=== PATIENT | female | born 1985 | race African-American/Black ===

== ENCOUNTER 2016-12-10 19:41 | Emergency (ER) | payer OTHER ==
[2016-12-10] MEDS ORDERED: LEVETIRACETAM 500 MG TABLET PO ONE (20:18)
--- NOTE | 2016-12-10 20:21 | ER Document Report ---
ED General - General Stated Complaint: POSSIBLE SEIZURE Notes: Patient is a 31-year-old female who presents after having a witnessed seizure at home. She apparently had generalized tonic-clonic event. She has a long- standing history of seizures but is apparently off all her seizure medication since July due to recently moving from [place]. She has not seen her primary care doctor regarding today's concerns. At time of my assessment she denies any concerns. She really did not have a postictal state per EMS. She states that this is "a very mild" seizure event for her. At time of my assessment she denies any focal complaints. She has not noted that anything improves or worsens her symptoms. TRAVEL OUTSIDE OF THE [place] IN LAST 30 DAYS: No - Related Data Allergies/Adverse Reactions: banana [Banana] Allergy (Intermediate, Verified 07/06/14 10:22) swelling morphine [Morphine] Allergy (Intermediate, Verified 07/06/14 10:22) Hives Past Medical History - General Information source: Patient - Social History Smoking Status: Never Smoker Frequency of alcohol use: None Drug Abuse: None Lives with: Family Family History: Reviewed & Not Pertinent - Past Medical History Cardiac Medical History: Denies: Hx Hypertension Pulmonary Medical History: Reports: Hx Asthma Neurological Medical History: Reports: Hx Seizures - NEVER EVALUATED BY NEUROLOGY Endocrine Medical History: Denies: Hx Diabetes Mellitus Type 1, Hx Diabetes Mellitus Type 2 Renal/ Medical History: Reports: Hx Ectopic . Denies: Hx Kidney Stones, Hx Ovarian Cysts, Hx Pelvic Inflammatory Disease, Hx Renal Insufficiency GI Medical History: Denies: Hx Gastritis, Hx Gastroesophageal Reflux Disease Musculoskeltal Medical History: Denies Hx Musculoskeletal Trauma Skin Medical History: Denies Hx Cellulitis, Denies Hx Eczema, Denies Hx MRSA, Denies Hx Psoriasis Past Surgical History: Reports: Hx Section - x1, Hx Gynecologic Surgery - left fallopion - Immunizations Hx Diphtheria, Pertussis, Tetanus Vaccination: Yes - 2010 Review of Systems - Review of Systems Notes: Constitutional: Negative for fever. HENT: Negative for sore throat. Eyes: Negative for visual changes. Cardiovascular: Negative for chest pain. Respiratory: Negative for shortness of breath. Gastrointestinal: Negative for abdominal pain, vomiting or diarrhea. Genitourinary: Negative for dysuria. Musculoskeletal: Negative for back pain. Skin: Negative for rash. Neurological: Negative for headaches, weakness or numbness. 10 point ROS negative except as marked above and in HPI. Physical Exam - Vital signs Vitals: Temp Pulse Resp BP Pulse Ox 98.2 F 66 16 115/61 100 12/10/16 20:29 12/10/16 20:29 12/10/16 20:29 12/10/16 20:29 12/10/16 20:29 Interpretation: Normal Notes: PHYSICAL EXAMINATION: GENERAL: Well-appearing, well-nourished and in no acute distress. HEAD: Atraumatic, normocephalic. EYES: Pupils equal round and reactive to light, extraocular movements intact, sclera anicteric, conjunctiva are normal. ENT: nares patent, oropharynx clear without exudates. Moist mucous membranes. NECK: Normal range of motion, supple without lymphadenopathy LUNGS: Breath sounds clear to auscultation bilaterally and equal. No wheezes rales or rhonchi. HEART: Regular rate and rhythm without murmurs ABDOMEN: Soft, nontender, normoactive bowel sounds. No guarding, no rebound. No masses appreciated. EXTREMITIES: Normal range of motion, no pitting or edema. No cyanosis. NEUROLOGICAL: Face symmetric. Tongue protrudes midline. Extraocular motions intact. Pupils are 2 mm and equally reactive. Normal speech, normal gait. 5 out of 5 strength in both the distal and proximal upper and lower extremities bilaterally. Sensation is grossly intact throughout. Finger to nose testing normal. Pronator drift normal. PSYCH: Normal mood, normal affect. SKIN: Warm, Dry, normal turgor, no rashes or lesions noted. Course - Re-evaluation Re-evalutation: 12/10/16 20:19 Presentation of well-appearing patient after having a seizure. Patient has a known history of seizures. Patient is ran out of her medications 3 months ago and this is likely the etiology of today's seizure. She will be restarted on her Keppra 1000 mg twice a day which she was taking prior to running out of her medications when she moved from [place]. The patient has returned to baseline without intervention. No focal neurologic deficits. No infectious symptoms, vital sign abnormalities, or evidence of trauma. No indication for laboratories or imaging based on reassuring evaluation and known history of seizures. The patient will be discharged home with recommendations for close follow-up with primary care as well as their neurologist. Return precautions have been reviewed and patient has verbalized understanding. - Vital Signs Vital signs: Temp Pulse Resp BP Pulse Ox 98.2 F 66 16 115/61 100 12/10/16 20:29 12/10/16 20:29 12/10/16 20:29 12/10/16 20:29 12/10/16 20:29 Discharge - Discharge Clinical Impression: Seizure Condition: Good Disposition: HOME, SELF-CARE Additional Instructions: Today you had a seizure. It is very important that you do not engage in any activities that could result in severe injury should you have a seizure. Specifically, do not drive a vehicle, go into a body of water, take a bath, climb ladders, or operate any heavy machinery until you have been cleared by your neurologist. Please return to the ED immediately if you have multiple seizures close together, develop a severe headache, weakness, numbness, difficulty speaking, have a seizure in which you do not return to normal within 1 hour of the seizure, or have any other symptoms that are concerning to you. Prescriptions: Levetiracetam [Keppra 500 mg Tablet] 1,000 mg PO Q12 #120 tablet
[2016-12-10 20:39] VITALS: BP 115/61
== END 2016-12-10 20:40 | disposition home or self-care (01) ==
LOC: ER 19:41
DX: R56.9 Unspecified convulsions (principal); Z91.14 Patient's other noncompliance with medication regimen; J45.909 Unspecified asthma, uncomplicated; Z88.5 Allergy status to narcotic agent; Z91.018 Allergy to other foods
CPT/HCPCS: 99284

== ENCOUNTER 2017-01-30 23:23 | Emergency (ER) | payer OTHER ==
[2017-01-31 00:56] LABS: ABSOLUTE BASOPHILS # (AUTO) 0.1 10^3/uL (0.0-0.2); ABSOLUTE EOSINOPHILS # (AUTO) 0.1 10^3/uL (0.0-0.6); ABSOLUTE LYMPHOCYTES (AUTO) 2.7 10^3/uL (0.5-4.7); ABSOLUTE MONOCYTES (AUTO) 0.8 10^3/uL (0.1-1.4); ABSOLUTE NEUT (AUTO) 5.4 10^3/uL (1.7-8.2); BASOPHILS % (AUTO) 0.7 % (0-2); EOSINOPHILS % (AUTO) 1.1 % (0-6); HEMATOCRIT 42.8 % (36.0-47.0); HEMOGLOBIN 14.2 g/dL (12.0-15.5); HGB HCT DIFFERENCE -0.2; LYMPHOCYTES % (AUTO) 29.8 % (13-45); MEAN CORPUSCULAR HEMOGLOBIN 29.9 pg (27.0-33.4); MEAN CORPUSCULAR HGB CONC 33.1 g/dL (32.0-36.0); MEAN CORPUSCULAR VOLUME 90 fl (80-97); MONOCYTES % (AUTO) 9.2 % (3-13); RED BLOOD COUNT 4.74 10^6/uL (3.72-5.28); RED CELL DISTRIBUTION WIDTH 14.2 % (11.5-14.0); SEGMENTED NEUTROPHILS % (AUTO) 59.2 % (42-78); WHITE BLOOD COUNT 9.1 10^3/uL (4.0-10.5)
== END 2017-01-31 00:45 | disposition left against medical advice (07) ==
LOC: ER 23:23
DX: Z53.21 Procedure and treatment not carried out due to patient leaving prior to being seen by health care provider (principal)
CPT/HCPCS: 36415; 80156; 85025

== ENCOUNTER 2017-02-18 16:41 | Emergency (ER) | payer SELFPAY ==
[2017-02-18] MEDS ORDERED: IBUPROFEN 600 MG TABLET PO ONE (17:43)
--- NOTE | 2017-02-18 17:46 | ER Document Report ---
ED Cardiac - General Chief Complaint: Chest Pain Stated Complaint: CHEST PAIN Time Seen by Provider: 02/18/17 17:43 Notes: Patient is a 32-year-old female, past medical history epilepsy, presents with 1 day of dry cough, nasal congestion, sore throat, mid back pain and now chest pain when she coughs. She has not taking anything to help with any of her symptoms. She denies shortness of breath, hemoptysis, OCP use, leg swelling, recent surgery, recent travel, nausea, vomiting or fevers. TRAVEL OUTSIDE OF THE [place] IN LAST 30 DAYS: No - Related Data Allergies/Adverse Reactions: banana [Banana] Allergy (Intermediate, Verified 02/18/17 17:07) swelling morphine [Morphine] Allergy (Intermediate, Verified 02/18/17 17:07) Hives Past Medical History - General Information source: Patient - Social History Smoking Status: Never Smoker Family History: Reviewed & Not Pertinent Patient has suicidal ideation: No Patient has homicidal ideation: No - Past Medical History Cardiac Medical History: Denies: Hx Hypertension Pulmonary Medical History: Reports: Hx Asthma Neurological Medical History: Reports: Hx Seizures - NEVER EVALUATED BY NEUROLOGY Endocrine Medical History: Denies: Hx Diabetes Mellitus Type 1, Hx Diabetes Mellitus Type 2 Renal/ Medical History: Reports: Hx Ectopic . Denies: Hx Kidney Stones, Hx Ovarian Cysts, Hx Peritoneal Dialysis, Hx Pelvic Inflammatory Disease , Hx Renal Insufficiency GI Medical History: Denies: Hx Gastritis, Hx Gastroesophageal Reflux Disease Musculoskeltal Medical History: Denies Hx Musculoskeletal Trauma Skin Medical History: Denies Hx Cellulitis, Denies Hx Eczema, Denies Hx MRSA, Denies Hx Psoriasis Past Surgical History: Reports: Hx Section - x1, Hx Gynecologic Surgery - left fallopion - Immunizations Hx Diphtheria, Pertussis, Tetanus Vaccination: Yes - 2010 Review of Systems - Review of Systems Notes: REVIEW OF SYSTEMS: CONSTITUTIONAL: -fevers, -chills EENT: -eye pain, -difficulty swallowing, +nasal congestion CARDIOVASCULAR: +chest pain, -syncope. RESPIRATORY: +cough, -SOB GASTROINTESTINAL: -abdominal pain, -nausea, -vomiting, -diarrhea GENITOURINARY: -dysuria, -hematuria MUSCULOSKELETAL: +back pain, -neck pain SKIN: -rash or skin lesions. HEMATOLOGIC: -easy bruising or bleeding. LYMPHATIC: -swollen, enlarged glands. NEUROLOGICAL: -altered mental status or loss of consciousness, -headache, - neurologic symptoms PSYCHIATRIC: -anxiety, -depression. ALL OTHER SYSTEMS REVIEWED AND NEGATIVE. Physical Exam - Vital signs Vitals: Temp Pulse Resp BP Pulse Ox 98 F 81 18 111/69 100 02/18/17 17:07 02/18/17 17:07 02/18/17 17:07 02/18/17 17:07 02/18/17 17:07 - Notes Notes: PHYSICAL EXAMINATION: GENERAL: Well-appearing, well-nourished and in no acute distress. HEAD: Atraumatic, normocephalic. EYES: Pupils equal round and reactive to light, extraocular movements intact, sclera anicteric, conjunctiva are normal. ENT: nasal congestion, nares patent, oropharynx clear without exudates. Moist mucous membranes. NECK: Normal range of motion, supple without lymphadenopathy LUNGS: Breath sounds clear to auscultation bilaterally and equal. No wheezes rales or rhonchi. HEART: Regular rate and rhythm without murmurs ABDOMEN: Soft, nontender, normoactive bowel sounds. No guarding, no rebound. No masses appreciated. EXTREMITIES: Tenderness over left thoracic paraspinal muscles, normal range of motion, no pitting or edema. No cyanosis. NEUROLOGICAL: Cranial nerves grossly intact. Normal speech, normal gait. Normal sensory and motor exams. PSYCH: Normal mood, normal affect. SKIN: Warm, Dry, normal turgor, no rashes or lesions noted. Course - Re-evaluation Re-evalutation: Patient appears well. EKG and chest x-ray did not show any concerning abnormalities. Symptoms are most likely related to URI with coughing and reproducible chest wall pain. PERC negative and HEART score 0. Instructed patient about symptomatic treatment and following up with her primary care physician. - Vital Signs Vital signs: Temp Pulse Resp BP Pulse Ox 98 F 81 18 111/69 100 02/18/17 17:07 02/18/17 17:07 02/18/17 17:07 02/18/17 17:07 02/18/17 17:07 - Diagnostic Test Radiology reviewed: Image reviewed, Reports reviewed Radiology results interpreted by me: CXR: NAD - EKG Interpretation by Me EKG shows normal: Sinus rhythm, [place], Intervals, QRS Complexes, ST-T Waves Rate: Normal Discharge - Discharge Clinical Impression: Chest pain Qualifiers: Chest pain type: unspecified Qualified Code(s): R07.9 - Chest pain, unspecified URI (upper respiratory infection) Qualifiers: URI type: unspecified URI Qualified Code(s): J06.9 - Acute upper respiratory infection, unspecified Condition: Stable Disposition: HOME, SELF-CARE Additional Instructions: CHEST PAIN OF UNCLEAR CAUSE: The exact cause of your chest pain isn't clear. Fortunately, there is no evidence of a dangerous medical condition. Further testing may be required to find the source of the pain. Most often, we find that this pain is coming from the chest wall -- the muscles or rib joints in the chest. But chest pain can come from the lung and lung lining, the esophagus, the heart valves or heart lining, and even the stomach or gallbladder. Rest. Eat lightly until the pain is gone. We may prescribe medicine for pain and inflammation. You should call the physician immediately if the pain radiates to the shoulder, jaw or arms; if you start to run a fever or develop a cough; or if you develop shortness of breath, or other new or alarming symptoms. NORMAL EXAM AND WORKUP: At this time, your examination and workup show no significant abnormality. No significant abnormal physical findings were noted. All laboratory, EKG, and imaging (x-ray, CT scans, ultrasound) studies that were ordered show no significant abnormality. Although your examination and all studies that were ordered showed no significant abnormal finding, there are no examinations and no studies that are 100% accurate. There is always the possibility that some abnormality could exist and not be detected with physical examination or within the limits and capabilities of laboratory and other studies. You should return or follow up as you were instructed on your visit today for further evaluation if your symptoms do not resolve. CHEST WALL PAIN: Your chest pain may be coming from the chest wall. This is often caused by straining the muscles or joints in the chest during physical activity, direct trauma, coughing, or vigorous vomiting. Persons with arthritis are especially prone to this type of pain, due to inflammation of the cartilage joints near the breast bone. Occasionally, no cause can be found. Rest from strenuous physical activity. This kind of chest pain is usually made worse by movement of the chest. Depending on the symptoms, we may prescribe medicine for pain, muscle relaxation, and antiinflammatory effects. If the pain is new, and seems to be due to muscle strain, cold packs can help. Otherwise, apply gentle warmth to the painful area for 15 minutes every hour or two. You should call contact the doctor immediately if things change. Further evaluation is needed if you develop a fever or cough, if the nature of the pain changes, or if you become short of breath. FOLLOW-UP CARE: If you have been referred to a physician for follow-up care, call the physician s office for an appointment as you were instructed or within the next two days. If you experience worsening or a significant change in your symptoms, notify the physician immediately or return to the Emergency Department at any time for re-evaluation. UPPER RESPIRATORY ILLNESS: You have a viral infection of the respiratory passages -- a "cold." This common infection causes nasal congestion, drainage, and often sore throat and cough. It is highly contagious. The disease usually lasts about 10 to 14 days. There is no "cure" for the viral infection -- it must run its course. If there is a complication, such as bacterial infection in the nose, sinuses, middle ear, or bronchial tubes, antibiotics may be required. The antibiotics won't affect the virus. Drink plenty of fluids. A humidifier may help. An expectorant medication or decongestant may make you more comfortable. Use acetaminophen or ibuprofen for fever or aches. See the doctor if fever persists over two days, if there is any significant worsening of your symptoms, or if you simply fail to improve as expected. DECONGESTANT MEDICATION: A decongestant medicine has been prescribed. Often this medicine is combined in the same tablet with an antihistamine or expectorant. This type of medicine is helpful in treating a bad cold or sinus condition, as well as in treatment of the nasal congestion of hay fever. It is not of much benefit for lung infections. Decongestant medicines are related to stimulants. They can cause an increase in blood pressure and heart rate. Persons with heart disease and high blood pressure should not take decongestants without discussing this with the physician. If you develop palpitations, chest pain, headache, or tremors, stop the medicine and consult your physician. COUGH-SUPPRESSANT & EXPECTORANT MEDICATION: You are to use a cough medication as needed for relief of symptoms. This medicine is a combination of an expectorant (to make the mucous thinner and more easily "coughed up") and a cough suppressant (to reduce the frequency of coughing). The cough-suppressant medicine is related to narcotics. You may experience mild nausea and sleepiness. Some patients who are very sensitive to narcotics may have stomach pain from this medicine. Taking the medicine with food reduces these side effects. Do not drive or work with machinery until you know how this medicine affects you. The expectorant should have no side effects. Iodine-containing expectorants (such as organidin) should not be taken by persons with active thyroid disease unless approved by your doctor. Call the doctor if you develop shortness of breath, hives, rash, itching, lightheadedness, or severe nausea and vomiting. FOLLOW-UP CARE: If you have been referred to a physician for follow-up care, call the physician s office for an appointment as you were instructed or within the next two days. If you experience worsening or a significant change in your symptoms, notify the physician immediately or return to the Emergency Department at any time for re-evaluation.
--- NOTE | 2017-02-18 18:12 | RADIOLOGY REPORT (SQ) ---
EXAM DESCRIPTION: CHEST PA/LAT COMPLETED DATE/TIME: 02/18/2017 6:04 pm REASON FOR STUDY: chest pain, cough COMPARISON: 08/05/2011 EXAM PARAMETERS: NUMBER OF VIEWS: two views TECHNIQUE: Digital Frontal and Lateral radiographic views of the chest acquired. RADIATION DOSE: NA LIMITATIONS: none FINDINGS: LUNGS AND PLEURA: No opacities, masses or pneumothorax. No pleural effusion. MEDIASTINUM AND HILAR STRUCTURES: No masses or contour abnormalities. HEART AND VASCULAR STRUCTURES: Heart normal size. No evidence for failure. BONES: No acute findings. HARDWARE: None in the chest. OTHER: No other significant finding. IMPRESSION: NO SIGNIFICANT RADIOGRAPHIC FINDING IN THE CHEST. TECHNICAL DOCUMENTATION: JOB ID: [id number] [employer]- All Rights Reserved
[2017-02-18 18:36] VITALS: BP 119/58
--- NOTE | 2017-02-18 23:38 | EKG REPORT ---
SEVERITY:- NORMAL ECG - SINUS RHYTHM : Confirmed by: Jc Tineo 18-Feb-2017 23:38:03
== END 2017-02-18 18:38 | disposition home or self-care (01) ==
LOC: ER 16:41
DX: J06.9 Acute upper respiratory infection, unspecified (principal); R07.9 Chest pain, unspecified; Z88.6 Allergy status to analgesic agent
CPT/HCPCS: 71020; 93005; 93010; 99285

== ENCOUNTER 2017-03-06 20:31 | Emergency (ER) | payer SELFPAY ==
[2017-03-06] MEDS ORDERED: LEVETIRACETAM 500 MG TABLET PO ONE (20:56)
--- NOTE | 2017-03-06 20:56 | ER Document Report ---
ED Seizure - General Chief Complaint: Probable Seizure Stated Complaint: POSSIBLE SEIZURE Time Seen by Provider: 03/06/17 20:48 Notes: The patient is a 32-year-old female, past medical history seizures (on Keppra 1000 mg bid), presents after she had two witnessed seizures at work today. Both of them lasted about 1 minute and they resolved without any intervention. She does not think that she took her Keppra this morning. She is now having a mild right-sided headache, which she says is common after her seizures. She denies nausea, vomiting, blurry vision, numbness, tingling, ataxia, fevers, neck stiffness, head injury, dental injury or loss of bowel or bladder. - Related Data Allergies/Adverse Reactions: banana [Banana] Allergy (Intermediate, Verified 02/18/17 17:07) swelling morphine [Morphine] Allergy (Intermediate, Verified 02/18/17 17:07) Hives Past Medical History - General Information source: Patient, Emergency Med Personnel - Social History Smoking Status: Unknown if Ever Smoked Family History: Reviewed & Not Pertinent - Past Medical History Cardiac Medical History: Denies: Hx Hypertension Pulmonary Medical History: Reports: Hx Asthma Neurological Medical History: Reports: Hx Seizures - NEVER EVALUATED BY NEUROLOGY Endocrine Medical History: Denies: Hx Diabetes Mellitus Type 1, Hx Diabetes Mellitus Type 2 Renal/ Medical History: Reports: Hx Ectopic . Denies: Hx Kidney Stones, Hx Ovarian Cysts, Hx Peritoneal Dialysis, Hx Pelvic Inflammatory Disease , Hx Renal Insufficiency GI Medical History: Denies: Hx Gastritis, Hx Gastroesophageal Reflux Disease Musculoskeltal Medical History: Denies Hx Musculoskeletal Trauma Skin Medical History: Denies Hx Cellulitis, Denies Hx Eczema, Denies Hx MRSA, Denies Hx Psoriasis Past Surgical History: Reports: Hx Section - x1, Hx Gynecologic Surgery - left fallopion - Immunizations Hx Diphtheria, Pertussis, Tetanus Vaccination: Yes - 2010 Review of Systems - Review of Systems Notes: REVIEW OF SYSTEMS: CONSTITUTIONAL: -fevers, -chills EENT: -eye pain, -difficulty swallowing, -nasal congestion CARDIOVASCULAR:-chest pain, -syncope. RESPIRATORY: -cough, -SOB GASTROINTESTINAL: -abdominal pain, - nausea, -vomiting, -diarrhea GENITOURINARY: -dysuria, -hematuria MUSCULOSKELETAL: -back pain, -neck pain SKIN: -rash or skin lesions. HEMATOLOGIC: -easy bruising or bleeding. LYMPHATIC: -swollen, enlarged glands. NEUROLOGICAL: -altered mental status or loss of consciousness, +headache, + seizure activity PSYCHIATRIC: -anxiety, -depression. ALL OTHER SYSTEMS REVIEWED AND NEGATIVE. Physical Exam - Vital signs Vitals: Temp Pulse Resp BP Pulse Ox 98.5 F 81 18 110/74 100 03/06/17 20:42 03/06/17 20:42 03/06/17 20:42 03/06/17 20:42 03/06/17 20:42 - Notes Notes: PHYSICAL EXAMINATION: GENERAL: Well-appearing, well-nourished and in no acute distress. HEAD: Atraumatic, normocephalic. EYES: Pupils equal round and reactive to light, extraocular movements intact, sclera anicteric, conjunctiva are normal. ENT: nares patent, oropharynx clear without exudates. Moist mucous membranes. NECK: Normal range of motion, supple without lymphadenopathy LUNGS: Breath sounds clear to auscultation bilaterally and equal. No wheezes rales or rhonchi. HEART: Regular rate and rhythm without murmurs ABDOMEN: Soft, nontender, normoactive bowel sounds. No guarding, no rebound. No masses appreciated. EXTREMITIES: Normal range of motion, no pitting or edema. No cyanosis. NEUROLOGICAL: Cranial nerves grossly intact. Normal speech, normal gait. Normal sensory and motor exams. PSYCH: Normal mood, normal affect. SKIN: Warm, Dry, normal turgor, no rashes or lesions noted. Course - Re-evaluation Re-evalutation: Patient with breakthrough seizure, which may be most likely caused from missing her Keppra doses. Her Accu-Chek is normal and she is not . Provided her with headache cocktail, evening Keppra dose and monitored in the ER. 03/06/17 22:06 Pt feels much better. Headache has completely resolved and she is requesting D/C. Her Accu-Chek is normal. She started her period while in the emergency room. Instructed patient to always take her Keppra as prescribed. He has always had this headache after her seizures. Do not suspect meningitis, ICH or SAH at this time. Instructed her to follow-up with her neurologist. Given return precautions and she understands. - Vital Signs Vital signs: Temp Pulse Resp BP Pulse Ox 98.5 F 81 14 111/67 96 03/06/17 20:42 03/06/17 20:42 03/06/17 21:00 03/06/17 21:00 03/06/17 21:00 Discharge - Discharge Clinical Impression: Recurrent seizures Headache Qualifiers: Headache type: unspecified Headache chronicity pattern: unspecified pattern Intractability: not intractable Qualified Code(s): R51 - Headache Condition: Stable Disposition: HOME, SELF-CARE Additional Instructions: Seizure, Known Epileptic You have had a seizure. Seizures may "break through" in an epileptic due to stress of infection or injury, a change in blood chemistry, or drug and alcohol use. Another common cause is failure to take medication as prescribed. Your doctor has evaluated your situation for the likely cause of this seizure. It is important that you follow his advice concerning any medication changes and follow-up care. Further testing of anti-seizure medication levels in your blood may be necessary. 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 This seizure must be reported to the patrol driver 's license bureau. Call the doctor or return if seizures recur, or if new or unusual symptoms arise -- such as severe headache, confusion, excessive sleepiness, local weakness or numbness, neck stiffness, or fever. HEADACHE: The physician does not feel that the headache you are experiencing has a serious underlying cause. Most headaches are due to emotional stress, with resultant muscle tension (tension headache). Occasionally, headaches are secondary to changes in the blood vessels of the scalp (vascular headache and migraine headache). Sometimes, a headache is the first symptom of another developing illness, such as a viral infection. You have no evidence of stroke, bleeding, meningitis, or other serious cause of your headache. The treatment of headaches varies with the severity and cause of the pain. Not all headaches need pain shots. In fact, there is evidence that using narcotics for headaches may make them worse in the long run. The physician will determine the therapy that's in your best interest. If you develop a fever, if the headache is different from any you've previously experienced, or if the headache progressively worsens, then call your physician at once or go to the emergency room. REGLAN (METOCLOPRAMIDE): Reglan has been prescribed. This medicine affects the stomach and intestines. It can be used to treat nausea and vomiting, to prevent reflux of stomach acid up into the esophagus, or to increase the contractions of the stomach and intestines. It is often prescribed for esophagitis, and for paralysis of the stomach in diabetics. Reglan can cause either mild restlessness or drowsiness. You should contact the doctor at once if you become extremely restless, anxious, or cannot sleep, or if you develop uncontrollable motions of the lips, tongue, or jaw. Do not take alcohol with this medicine. Do not drive or operate machinery until you have been taking this medicine long enough to know how it affects you. Call the doctor if you develop abdominal pains, lightheadedness, black stool, or blood in the stool or vomitus. USE OF DIPHENHYDRAMINE: Diphenhydramine (Benadryl) is an antihistamine and has been recommended to help treat your headache and to prevent side effects of other medications used to treat headaches. The medication can be repeated four times daily. Age Elixir (12.5 mg/tsp) 25 mg pill adult 1-2 tabs Antihistamines may cause drowsiness, especially with the first dose. Do not operate machinery or drive while under the effects of the medication. Do not combine the medication with alcohol, or with any other medication without talking to your doctor. FOLLOW-UP CARE: If you have been referred to a physician for follow-up care, call the physician s office for an appointment as you were instructed or within the next two days. If you experience worsening or a significant change in your symptoms, notify the physician immediately or return to the Emergency Department at any time for re-evaluation. Referrals: DANIEL KING MD [ACTIVE STAFF] - Follow up as needed
[2017-03-06] MEDS ORDERED: METOCLOPRAMIDE HCL INJ/PF 10 MG/2 ML SDV IV ONE (20:57)
[2017-03-06] MEDS ORDERED: DIPHENHYDRAMINE HCL 50 MG/ML VIAL IV ONE (20:57)
[2017-03-07 00:21] VITALS: BP 88/66
== END 2017-03-07 00:01 | disposition home or self-care (01) ==
LOC: ER 20:31
DX: G40.909 Epilepsy, unspecified, not intractable, without status epilepticus (principal); R56.9 Unspecified convulsions; R51 Headache; Z79.899 Other long term (current) drug therapy
CPT/HCPCS: 99284; 96374; 96375; 82962; J1200; J2765

== ENCOUNTER 2017-03-31 10:35 | Emergency (ER) | payer SELFPAY ==
[2017-03-31] MEDS ORDERED: DIPHENHYDRAMINE HCL 25 MG CAPSULE PO ONE (11:31)
[2017-03-31] MEDS ORDERED: ONDANSETRON 4 MG TAB.RAPDIS PO ONE (11:31)
[2017-03-31] MEDS ORDERED: ACETAMINOPHEN 325 MG TABLET PO ONE (11:31)
--- NOTE | 2017-03-31 12:04 | RADIOLOGY REPORT (SQ) ---
EXAM DESCRIPTION: CHEST PA/LAT COMPLETED DATE/TIME: 03/31/2017 11:39 am REASON FOR STUDY: chest wall pain COMPARISON: 02/18/2017 EXAM PARAMETERS: NUMBER OF VIEWS: two views TECHNIQUE: Digital Frontal and Lateral radiographic views of the chest acquired. RADIATION DOSE: NA LIMITATIONS: none FINDINGS: LUNGS AND PLEURA: No opacities, masses or pneumothorax. No pleural effusion. MEDIASTINUM AND HILAR STRUCTURES: No masses or contour abnormalities. HEART AND VASCULAR STRUCTURES: Heart normal size. No evidence for failure. BONES: No acute findings. HARDWARE: None in the chest. OTHER: No other significant finding. IMPRESSION: NO SIGNIFICANT RADIOGRAPHIC FINDING IN THE CHEST. TECHNICAL DOCUMENTATION: JOB ID: [id number] [email or web address]- All Rights Reserved
[2017-03-31 12:11] LABS: APPEARANCE,URINE SLIGHTLY-CLOUDY; BILIRUBIN,URINE NEGATIVE (NEGATIVE); GLUCOSE, URINE NEGATIVE (NEGATIVE); KETONES,URINE NEGATIVE (NEGATIVE); LEUKOCYTE ESTERASE,URINE NEGATIVE (NEGATIVE); NITRITE,URINE NEGATIVE (NEGATIVE); PROTEIN,URINE NEGATIVE (NEGATIVE); URINE SPECIFIC GRAVITY 1.023; UROBILINOGEN,URINE NEGATIVE mg/dL (<2.0)
[2017-03-31] MEDS ORDERED: LEVETIRACETAM 500 MG TABLET PO ONE (12:31)
[2017-03-31 12:32] LABS: URINE BARBITURATES SCREEN NEGATIVE; URINE METHADONE SCREEN NEGATIVE; URINE OPIATES LOW NEGATIVE; URINE PHENCYCLIDINE SCREEN NEGATIVE
--- NOTE | 2017-03-31 13:01 | ER Document Report ---
ED Seizure - General Chief Complaint: Probable Seizure Stated Complaint: POSSIBLE SEIZURE Time Seen by Provider: 03/31/17 10:40 - HPI Patient complains to provider of: History of seizures - noncompliant with keppra Number of episodes: 1 Time of onset: this am Duration: < 1 minute Quality of pain: Achy Severity: Mild Continued on arrival to ED: No Can details of seizure be obtained/verified: No Episode witnessed (by whom): Yes - brother in law who is not at the bedside Current seizure medications: Keppra Preceding symptoms/context: Missed dose of meds - has been noncompliant with keppra for 2 days, Other - also admits to sore throat so she ahsnt wanted to take her medications, admits to white vaginal discharge without pain/itching, no recent abx. Post-ictal symptoms: Headache Injuries: None - Related Data Allergies/Adverse Reactions: banana [Banana] Allergy (Intermediate, Verified 02/18/17 17:07) swelling morphine [Morphine] Allergy (Intermediate, Verified 02/18/17 17:07) Hives Past Medical History - Social History Smoking Status: Current Every Day Smoker Family History: Reviewed & Not Pertinent - Past Medical History Cardiac Medical History: Denies: Hx Hypertension Pulmonary Medical History: Reports: Hx Asthma Neurological Medical History: Reports: Hx Seizures - NEVER EVALUATED BY NEUROLOGY Endocrine Medical History: Denies: Hx Diabetes Mellitus Type 1, Hx Diabetes Mellitus Type 2 Renal/ Medical History: Reports: Hx Ectopic . Denies: Hx Kidney Stones, Hx Ovarian Cysts, Hx Peritoneal Dialysis, Hx Pelvic Inflammatory Disease , Hx Renal Insufficiency GI Medical History: Denies: Hx Gastritis, Hx Gastroesophageal Reflux Disease Musculoskeltal Medical History: Denies Hx Musculoskeletal Trauma Skin Medical History: Denies Hx Cellulitis, Denies Hx Eczema, Denies Hx MRSA, Denies Hx Psoriasis Past Surgical History: Reports: Hx Section - x1, Hx Gynecologic Surgery - left fallopion - Immunizations Hx Diphtheria, Pertussis, Tetanus Vaccination: Yes - 2010 Review of Systems - Review of Systems Constitutional: No symptoms reported EENT: See HPI Neurological/Psychological: See HPI -: Yes All other systems reviewed and negative Physical Exam - Vital signs Vitals: Resp BP Pulse Ox 12 111/71 96 03/31/17 10:43 03/31/17 10:43 03/31/17 10:43 - Notes Notes: PHYSICAL EXAM GENERAL: Alert, interacts well. HEAD: Normocephalic, atraumatic. EYES: Pupils equal, round, and reactive to light. Extraocular movements intact. ENT: Oral mucosa moist, tongue midline. NECK: Full range of motion. Supple. Trachea midline. LUNGS: Clear to auscultation bilaterally, no wheezes, rales, or rhonchi. No respiratory distress. HEART: Regular rate and rhythm. No murmurs, gallops, or rubs. ABDOMEN: Soft, nondistended, nontender. No guarding, rebound, or rigidity.. Bowel sounds present in all 4 quadrants. FEMALE : Normal external exam. No evidence of lesions, lacerations, bruising or vesicles. Speculum exam normal cervix closed. No evidence of vaginal discharge with odor. No evidence of lesions. No vaginal bleeding. Bimanual exam normal no cervical motion tenderness. No adnexal mass or adnexal tenderness. EXTREMITIES: Moves all 4 extremities spontaneously. No edema, radial and dorsalis pedis pulses 2/4 bilaterally. No cyanosis. NEUROLOGICAL: Alert and oriented x4. Normal speech. PSYCH: Normal affect, normal mood. SKIN: Warm, dry, normal turgor. No rashes or lesions noted. Course - Re-evaluation Re-evalutation: 03/31/17 19:00 Presentation of well-appearing patient after having a seizure. Patient has a known history of seizures. No obvious trigger for today's episode outside of being noncompliant with her meds. The patient has returned to baseline without intervention. No focal neurologic deficits. No infectious symptoms, vital sign abnormalities, or evidence of trauma. No indication for laboratories or imaging based on reassuring evaluation and known history of seizures. The patient will be discharged home with recommendations for close follow-up with primary care as well as their neurologist. Return precautions have been reviewed and patient has verbalized understanding. - Vital Signs Vital signs: Temp Pulse Resp BP Pulse Ox 98.6 F 68 16 92/65 L 94 03/31/17 13:45 03/31/17 13:45 03/31/17 13:38 03/31/17 13:38 03/31/17 13:38 - Laboratory Laboratory results interpreted by me: 03/31/17 11:21 Carbamazepine < 2.4 L Discharge - Discharge Clinical Impression: Seizure Condition: Good Disposition: HOME, SELF-CARE Instructions: Seizure, Known Epileptic ([facility]) Additional Instructions: Please be sure to take your medications as prescribed. Please follow-up with your primary care provider was established in the next month. ABDOMINAL PAIN: There are many causes of abdominal pain. Pain can mean a serious problem requiring surgery (such as appendicitis). It can also be an innocent problem that goes away on its own (such as a viral infection). Often, time must pass to determine the cause of pain. The physician does not feel that hospitalization is necessary, at present. Things may change within the next 24 hours. Call the doctor or come back for re- examination if any problems occur, such as: (1) Pain that becomes more severe, steady, or becomes concentrated in one specific area. Also, pain that is more severe with movement or coughing. (2) Vomiting that persists or becomes more frequent. (3) Blood in the vomitus, urine, or bowel movements. Blood in the stool may have a tarry or black appearance. (4) Shaking chills or fever greater than 100 degrees F. (5) The abdomen becomes more distended or swollen. (6) Bowel movements cease. (7) Failure to improve as expected. NORMAL EXAM AND WORKUP: At this time, your examination and workup show no significant abnormality. No significant abnormal physical findings are noted. All laboratory, EKG, and imaging (x-ray, CT scans, ultrasound) studies that were ordered show no significant abnormality. Although your examination and all studies that were ordered showed no significant abnormal finding, there are no examinations and no studies that are 100% accurate. There is always the possibility that some abnormality could exist and not be detected with physical examination or within the limits and capabilities of laboratory and other studies. You should return or follow up as you were instructed on your visit today for further evaluation if your symptoms do not resolve. FOLLOW-UP CARE: If you have been referred to a physician for follow-up care, call the physician s office for an appointment as you were instructed or within the next two days. If you experience worsening or a significant change in your symptoms, notify the physician immediately or return to the Emergency Department at any time for re-evaluation. Forms: Return to Work Referrals: [facility] [NO LOCAL MD] - Follow up as needed
[2017-03-31 13:35] LABS: CHLAM PCR NOT DETECTED (NOT DETECT)
[2017-03-31 13:40] VITALS: BP 92/65
--- NOTE | 2017-03-31 17:50 | EKG REPORT ---
SEVERITY:- NORMAL ECG - SINUS RHYTHM : Confirmed by: Jc Tineo 31-Mar-2017 17:49:59
== END 2017-03-31 13:44 | disposition home or self-care (01) ==
LOC: ER 10:35
DX: R56.9 Unspecified convulsions (principal); J02.9 Acute pharyngitis, unspecified; N89.8 Other specified noninflammatory disorders of vagina; Z79.899 Other long term (current) drug therapy
CPT/HCPCS: 93005; 99284; 36415; 87070; 87210; 87880; 80307 ×2; 80156; 81025; 81001; 87491; 87591; 71020; 93010; S0119

== ENCOUNTER 2017-06-18 08:04 | Emergency (ER) | payer SELFPAY ==
[2017-06-18] MEDS ORDERED: PREDNISONE 20 MG TABLET PO ONE (08:50)
[2017-06-18] MEDS ORDERED: CETIRIZINE 5 MG TABLET PO ONE (08:50)
--- NOTE | 2017-06-18 09:00 | ER Document Report ---
ED General - General Chief Complaint: Sore Throat Stated Complaint: THROAT AND EAR PAIN Time Seen by Provider: 06/18/17 08:29 TRAVEL OUTSIDE OF THE [place] IN LAST 30 DAYS: No - HPI Patient complains to provider of: Sore throat Notes: Patient coming in for sore throat bilateral ear pain. Sore throat 2 days. Bilateral ear pain states ongoing for months. Patient states has a history of seizure disorder patient is on Keppra states compliant with her medication. Patient states multiple sick contacts at her place of work and at home. Patient is resting comfortably upon my evaluation denies any fever chills nausea vomiting difficulty breathing. Patient has no obvious drooling trismus - Related Data Allergies/Adverse Reactions: banana [Banana] Allergy (Intermediate, Verified 06/18/17 08:05) swelling morphine [Morphine] Allergy (Intermediate, Verified 06/18/17 08:05) Hives Past Medical History - Social History Smoking Status: Unknown if Ever Smoked Family History: Reviewed & Not Pertinent Patient has suicidal ideation: No Patient has homicidal ideation: No - Past Medical History Cardiac Medical History: Denies: Hx Hypertension Pulmonary Medical History: Reports: Hx Asthma Neurological Medical History: Reports: Hx Seizures - NEVER EVALUATED BY NEUROLOGY Endocrine Medical History: Denies: Hx Diabetes Mellitus Type 1, Hx Diabetes Mellitus Type 2 Renal/ Medical History: Reports: Hx Ectopic . Denies: Hx Kidney Stones, Hx Ovarian Cysts, Hx Peritoneal Dialysis, Hx Pelvic Inflammatory Disease , Hx Renal Insufficiency GI Medical History: Denies: Hx Gastritis, Hx Gastroesophageal Reflux Disease Musculoskeltal Medical History: Denies Hx Musculoskeletal Trauma Skin Medical History: Denies Hx Cellulitis, Denies Hx Eczema, Denies Hx MRSA, Denies Hx Psoriasis Past Surgical History: Reports: Hx Section - x1, Hx Gynecologic Surgery - left fallopion - Immunizations Hx Diphtheria, Pertussis, Tetanus Vaccination: Yes - 2010 Review of Systems - Review of Systems Constitutional: No symptoms reported EENT: Ear pain, Throat pain Cardiovascular: No symptoms reported Respiratory: No symptoms reported Gastrointestinal: No symptoms reported Genitourinary: No symptoms reported Female Genitourinary: No symptoms reported Musculoskeletal: No symptoms reported Skin: No symptoms reported Hematologic/Lymphatic: No symptoms reported Neurological/Psychological: No symptoms reported -: Yes All other systems reviewed and negative Physical Exam - Vital signs Vitals: Temp Pulse Resp BP Pulse Ox 98.6 F 70 16 108/63 100 06/18/17 08:08 06/18/17 08:08 06/18/17 08:08 06/18/17 08:08 06/18/17 08:08 Interpretation: Normal - General General appearance: Appears well, Alert - HEENT Head: Normocephalic, Atraumatic Eyes: Normal Conjunctiva: Normal Cornea: Normal Extraocular movements intact: Yes Eyelashes: Normal Pupils: PERRL Ears: Normal External canal: Normal Tympanic membrane: Serous effusion - Bilateral Sinus: Normal Pharynx: Erythema, Post nasal drainage Neck: Normal - Respiratory Respiratory status: No respiratory distress Chest status: Nontender Breath sounds: Normal Chest palpation: Normal - Cardiovascular Rhythm: Regular Heart sounds: Normal auscultation Murmur: No - Abdominal Inspection: Normal Distension: No distension Bowel sounds: Normal Tenderness: Nontender Organomegaly: No organomegaly - Back Back: Normal, Nontender - Extremities General upper extremity: Normal inspection, Nontender, Normal color, Normal ROM , Normal temperature General lower extremity: Normal inspection, Nontender, Normal color, Normal ROM , Normal temperature, Normal weight bearing. No: Lindsay's sign - Neurological Neuro grossly intact: Yes Cognition: Normal Orientation: AAOx4 [place] Coma Scale Eye Opening: Spontaneous Jojo Coma Scale Verbal: Oriented Jojo Coma Scale Motor: Obeys Commands [place] Coma Scale Total: 15 Speech: Normal Motor strength normal: LUE, RUE, LLE, RLE Sensory: Normal - Psychological Associated symptoms: Normal affect, Normal mood - Skin Skin Temperature: Warm Skin Moisture: Dry Skin Color: Normal Course - Re-evaluation Re-evalutation: 06/18/17 09:21 Examination does not reveal any critical pathology. Strep swab was negative. Patient was discharged home follow-up PCP will recommend short course of steroids to help out with sore throat and congestion more likely will aid in possible eustachian tube dysfunction this patient has a clear effusion. Also recommend patient take a antihistamine. - Vital Signs Vital signs: Temp Pulse Resp BP Pulse Ox 98.6 F 70 16 108/63 100 06/18/17 08:08 06/18/17 08:08 06/18/17 08:08 06/18/17 08:08 06/18/17 08:08 Discharge - Discharge Clinical Impression: Sore throat, Otalgia of both ears Condition: Good Disposition: HOME, SELF-CARE Instructions: Sore Throat ([facility]) Additional Instructions: At this time your strep test is negative. Examination does not reveal any signs of infection require antibiotics at this time. Please take an antihistamine to help out with your symptoms. You may take the one prescribed or any antihistamines [id number]. To aid in your sore throat I will prescribe a short course of steroids that should help decrease inflammation and aid in pain relief. Please take Tylenol Motrin for pain control. Prescriptions: Cetirizine HCl [Zyrtec 10 mg Tablet] 1 tab PO DAILY #30 tablet Ibuprofen [Motrin 600 Mg Tablet] 600 mg PO TID #20 tablet Prednisone [Deltasone 20 mg Tablet] 2 tab PO DAILY 4 Days tablet Forms: Return to Work
[2017-06-18 09:29] VITALS: BP 110/65
== END 2017-06-18 09:34 | disposition home or self-care (01) ==
LOC: ER 08:04
DX: J02.9 Acute pharyngitis, unspecified (principal); H92.03 Otalgia, bilateral; R07.0 Pain in throat
CPT/HCPCS: 99282; 87070; 87880; J7512; J3490

== ENCOUNTER 2017-07-08 21:14 | Emergency (ER) | payer SELFPAY ==
[2017-07-08 21:45] LABS: ABSOLUTE BASOPHILS # (AUTO) 0.1 10^3/uL (0.0-0.2); ABSOLUTE EOSINOPHILS # (AUTO) 0.3 10^3/uL (0.0-0.6); ABSOLUTE LYMPHOCYTES (AUTO) 1.8 10^3/uL (0.5-4.7); ABSOLUTE MONOCYTES (AUTO) 0.7 10^3/uL (0.1-1.4); ABSOLUTE NEUT (AUTO) 5.4 10^3/uL (1.7-8.2); BASOPHILS % (AUTO) 0.8 % (0-2); EOSINOPHILS % (AUTO) 3.6 % (0-6); HEMATOCRIT 40.1 % (36.0-47.0); HEMOGLOBIN 13.6 g/dL (12.0-15.5); HGB HCT DIFFERENCE 0.7; LYMPHOCYTES % (AUTO) 21.7 % (13-45); MEAN CORPUSCULAR HEMOGLOBIN 30.5 pg (27.0-33.4); MEAN CORPUSCULAR HGB CONC 33.9 g/dL (32.0-36.0); MEAN CORPUSCULAR VOLUME 90 fl (80-97); MONOCYTES % (AUTO) 8.3 % (3-13); RED BLOOD COUNT 4.45 10^6/uL (3.72-5.28); RED CELL DISTRIBUTION WIDTH 14.2 % (11.5-14.0); SEGMENTED NEUTROPHILS % (AUTO) 65.6 % (42-78); WHITE BLOOD COUNT 8.2 10^3/uL (4.0-10.5)
[2017-07-08 21:59] LABS: ALANINE AMINOTRANSFERASE 39 U/L (9-52); ALBUMIN 4.3 g/dL (3.5-5.0); ALKALINE PHOSPHATASE 95 U/L (38-126); ANION GAP 13 (5-19); ASPARTATE AMINO TRANSFERASE 26 U/L (14-36); BILIRUBIN,DIRECT 0.3 mg/dL (0.0-0.4); BILIRUBIN,TOTAL 0.3 mg/dL (0.2-1.3); BLOOD UREA NITROGEN 19 mg/dL (7-20); CALCIUM 9.4 mg/dL (8.4-10.2); CARBON DIOXIDE 24 mmol/L (22-30); CHLORIDE 105 mmol/L (98-107); CREATININE RESULT 0.76 mg/dL (0.52-1.25); GLUCOSE 103 mg/dL (75-110); MAGNESIUM 1.7 mg/dL (1.6-2.3); POTASSIUM 3.7 mmol/L (3.6-5.0); TOTAL PROTEIN 7.9 g/dL (6.3-8.2)
[2017-07-08 22:00] LABS: ALCOHOL < 10 mg/dL (NONE DETECTED)
[2017-07-08] MEDS ORDERED: LEVETIRACETAM 500 MG TABLET PO ONE (22:54)
[2017-07-08] MEDS ORDERED: OXYMETAZOLINE HCL 0.05% NASAL SPRAY 15 ML BOTTLE NASL ONE (22:55)
[2017-07-08] MEDS ORDERED: ONDANSETRON ODT 4 MG TAB (6 TAB/DSPK) PO PRN (22:55)
--- NOTE | 2017-07-08 22:59 | ER Document Report ---
ED General - General Chief Complaint: Seizure Stated Complaint: POSSIBLE SEIZURE Time Seen by Provider: 07/08/17 21:49 Notes: Patient is a 32 year old female with a past medical history of epilepsy, currently off of her Keppra as apparently she ran out 3-4 days ago who presents after having a witnessed generalized tonic-clonic seizure lasting approximately 1-2 minutes. There was a postictal phase. Patient reports this is similar to prior seizures. Patient states she ran out of medication as she has not yet established a primary care doctor since moving to the area several months ago. She denies any focal weakness, numbness, or altered mental status since the episode. No trauma during the event. Patient is also complaining of several days of sinus pressure located primarily over the left maxillary sinus. There is a dull, constant, throbbing pain to the area. She has not had any fever or constitutional symptoms. Multiple sick contacts with similar symptoms. TRAVEL OUTSIDE OF THE [place] IN LAST 30 DAYS: No - Related Data Allergies/Adverse Reactions: banana [Banana] Allergy (Intermediate, Verified 07/08/17 21:30) swelling morphine [Morphine] Allergy (Intermediate, Verified 07/08/17 21:30) Hives Past Medical History - General Information source: Patient - Social History Smoking Status: Never Smoker Frequency of alcohol use: None Drug Abuse: None Lives with: Family Family History: Reviewed & Not Pertinent Patient has suicidal ideation: No Patient has homicidal ideation: No - Past Medical History Cardiac Medical History: Denies: Hx Hypertension Pulmonary Medical History: Reports: Hx Asthma Neurological Medical History: Reports: Hx Seizures - NEVER EVALUATED BY NEUROLOGY Endocrine Medical History: Denies: Hx Diabetes Mellitus Type 1, Hx Diabetes Mellitus Type 2 Renal/ Medical History: Reports: Hx Ectopic . Denies: Hx Kidney Stones, Hx Ovarian Cysts, Hx Peritoneal Dialysis, Hx Pelvic Inflammatory Disease , Hx Renal Insufficiency GI Medical History: Denies: Hx Gastritis, Hx Gastroesophageal Reflux Disease Musculoskeltal Medical History: Denies Hx Musculoskeletal Trauma Skin Medical History: Denies Hx Cellulitis, Denies Hx Eczema, Denies Hx MRSA, Denies Hx Psoriasis Past Surgical History: Reports: Hx Section - x1, Hx Gynecologic Surgery - left fallopion - Immunizations Hx Diphtheria, Pertussis, Tetanus Vaccination: Yes - 2010 Review of Systems - Review of Systems Notes: Constitutional: Negative for fever. HENT: Positive for sinus pressure Eyes: Negative for visual changes. Cardiovascular: Negative for chest pain. Respiratory: Negative for shortness of breath. Gastrointestinal: Negative for abdominal pain, vomiting or diarrhea. Genitourinary: Negative for dysuria. Musculoskeletal: Negative for back pain. Skin: Negative for rash. Neurological: Negative for headaches, weakness or numbness. 10 point ROS negative except as marked above and in HPI. Physical Exam - Vital signs Vitals: Resp Pulse Ox 15 100 07/08/17 21:21 07/08/17 21:21 Interpretation: Normal Notes: PHYSICAL EXAMINATION: GENERAL: Well-appearing, well-nourished and in no acute distress. HEAD: Atraumatic, normocephalic. EYES: Pupils equal round and reactive to light, extraocular movements intact, sclera anicteric, conjunctiva are normal. ENT: nares patent, oropharynx clear without exudates. Moist mucous membranes. Mild fullness to the left maxillary sinus pain on palpation NECK: Normal range of motion, supple without lymphadenopathy LUNGS: Breath sounds clear to auscultation bilaterally and equal. No wheezes rales or rhonchi. HEART: Regular rate and rhythm without murmurs ABDOMEN: Soft, nontender, normoactive bowel sounds. No guarding, no rebound. No masses appreciated. EXTREMITIES: Normal range of motion, no pitting or edema. No cyanosis. NEUROLOGICAL: Face symmetric. Tongue protrudes midline. Extraocular motions intact. Pupils are 2 mm and equally reactive. Normal speech, normal gait. 5 out of 5 strength in both the distal and proximal upper and lower extremities bilaterally. Sensation is grossly intact throughout. Finger to nose testing normal. Pronator drift normal. PSYCH: Normal mood, normal affect. SKIN: Warm, Dry, normal turgor, no rashes or lesions noted. Course - Re-evaluation Re-evalutation: 07/08/17 22:55 Presentation of well-appearing patient after having a seizure. Patient has a known history of seizures. Patient has not taken her medication in at least 3- 4 days and this is the likely trigger of procedure today. The patient has returned to baseline without intervention. No focal neurologic deficits. No infectious symptoms, vital sign abnormalities, or evidence of trauma. No indication for laboratories or imaging based on reassuring evaluation and known history of seizures. Unfortunately, prior to me signing up for the patient and nursing staff ordered a multitude of labs on this patient which were not indicated. These have been reviewed and are normal. I have represcribed patient her Keppra as she does not have a local primary care doctor and I provided her referrals to local primary care as well as neurology. She is received a dose of her Keppra here in the emergency department the patient will be discharged home with recommendations for close follow-up with primary care and neurology follow-up. - Vital Signs Vital signs: Temp Pulse Resp BP Pulse Ox 98.1 F 20 111/73 97 07/08/17 21:42 07/08/17 23:01 07/08/17 23:01 07/08/17 23:01 - Laboratory Result Diagrams: 07/08/17 21:25 07/08/17 21:25 Laboratory results interpreted by me: 07/08/17 21:25 RDW 14.2 H Discharge - Discharge Clinical Impression: Seizure Sinusitis Qualifiers: Sinusitis location: maxillary Chronicity: acute Recurrence: non-recurrent Qualified Code(s): J01.00 - Acute maxillary sinusitis, unspecified Condition: Good Disposition: HOME, SELF-CARE Additional Instructions: Today you had a seizure. It is very important that you do not engage in any activities that could result in severe injury should you have a seizure. Specifically, do not drive a vehicle, go into a body of water, take a bath, climb ladders, or operate any heavy machinery until you have been cleared by your neurologist. Please return to the ED immediately if you have multiple seizures close together, develop a severe headache, weakness, numbness, difficulty speaking, have a seizure in which you do not return to normal within 1 hour of the seizure, or have any other symptoms that are concerning to you. Prescriptions: Levetiracetam [Keppra] 1,000 mg PO BID #60 tablet Forms: Return to Work
[2017-07-08 23:10] VITALS: BP 111/73
--- NOTE | 2017-07-09 09:30 | EKG REPORT ---
SEVERITY:- NORMAL ECG - SINUS RHYTHM : Confirmed by: Jc Tineo 09-Jul-2017 09:30:03
== END 2017-07-08 23:23 | disposition home or self-care (01) ==
LOC: ER 21:14
DX: J01.00 Acute maxillary sinusitis, unspecified (principal); R56.9 Unspecified convulsions; Z79.899 Other long term (current) drug therapy
CPT/HCPCS: 99284; 36415; 80177; 82962; 80307; 83735; 84703; 85025; 80053; J3490; 93010

== ENCOUNTER 2017-08-21 16:16 | Emergency (ER) | payer SELFPAY ==
[2017-08-21] MEDS ORDERED: LIDOCAINE 2% VISCOUS SOLN 20 ML UDCUP PO ONE (17:11)
--- NOTE | 2017-08-21 17:14 | ER Document Report ---
HPI - HPI Pain Level: 5 Notes: Patient is a 32-year-old female who presents the ED complaining of right lower dental pain to #32 with some mild swelling 3 days. Patient states that she is still eating and drinking, but does have a decreased p.o. intake because of the pain. Patient denies any smoking or IV drug use. No other concerns or complaints. She has not noticed any obvious abscess or drainage. Denies any headache, fever, head injury, neck pain, drooling, hoarseness, URI, sore throat , chest pain, palpitations, syncope, cough, shortness of breath, wheeze, dyspnea , abdominal pain, nausea/vomiting/diarrhea, urinary retention, dysuria, hematuria, or rash. - ROS Notes: REVIEW OF SYSTEMS: CONSTITUTIONAL : Denies fever, chills, or sweats. Denies recent illness. EENT: see hpi CARDIOVASCULAR: Denies chest pain. Denies palpitations or racing or irregular heart beat. RESPIRATORY: Denies cough, cold, or chest congestion. Denies shortness of breath, difficulty breathing, or wheezing. GASTROINTESTINAL: Denies abdominal pain or distention. Denies nausea, vomiting , or diarrhea. Denies blood in vomitus, stools, or per rectum. Denies black, tarry stools. Denies constipation. GENITOURINARY: Denies difficulty urinating, painful urination, burning, frequency, blood in urine, or discharge. MUSCULOSKELETAL: Denies back or neck pain or stiffness. Denies joint pain or swelling. SKIN: Denies rash, lesions or sores. NEUROLOGICAL: Denies confusion or altered mental status. Denies passing out or loss of consciousness. Denies dizziness or lightheadedness. Denies headache. Denies weakness or paralysis or loss of use of either side. Denies problems with gait or speech. Denies sensory loss, numbness, or tingling. Denies seizures. ALL OTHER SYSTEMS REVIEWED AND NEGATIVE. Dictation was performed using cartmi voice recognition software - REPRODUCTIVE [employer]roductive: REPORTS: : Past Medical History - Social History Smoking Status: Never Smoker Family History: Reviewed & Not Pertinent - Past Medical History Cardiac Medical History: Denies: Hx Hypertension Pulmonary Medical History: Reports: Hx Asthma Neurological Medical History: Reports: Hx Seizures - NEVER EVALUATED BY NEUROLOGY Endocrine Medical History: Denies: Hx Diabetes Mellitus Type 1, Hx Diabetes Mellitus Type 2 Renal/ Medical History: Reports: Hx Ectopic . Denies: Hx Kidney Stones, Hx Ovarian Cysts, Hx Peritoneal Dialysis, Hx Pelvic Inflammatory Disease , Hx Renal Insufficiency GI Medical History: Denies: Hx Gastritis, Hx Gastroesophageal Reflux Disease Musculoskeltal Medical History: Denies Hx Musculoskeletal Trauma Skin Medical History: Denies Hx Cellulitis, Denies Hx Eczema, Denies Hx MRSA, Denies Hx Psoriasis Past Surgical History: Reports: Hx Section - x1, Hx Gynecologic Surgery - left fallopion - Immunizations Hx Diphtheria, Pertussis, Tetanus Vaccination: Yes - 2010 Vertical Provider Document - CONSTITUTIONAL Agree With Documented VS: Yes Notes: PHYSICAL EXAMINATION: GENERAL: Well-appearing, well-nourished and in no acute distress. HEAD: Atraumatic, normocephalic. EYES: Pupils equal round and reactive to light, extraocular movements intact, sclera anicteric, conjunctiva are normal. ENT: EAC clear b/l. TM's intact b/l without erythema, fluid, or perforation. Nares patent and without discharge. oropharynx clear without exudates. No tonsilar hypertrophy or erythema. Moist mucous membranes. No sinus tenderness. Uvula midline. No palatine shift. No tongue protrusion. No airway compromise. No drooling. Mouth: Poor dentition. + mild decay and mild gingivitis. No obvious abscess or discharge noted. Mild rt lower jaw facial swelling. + tenderness to tooth # 32. NECK: Normal range of motion, supple without lymphadenopathy. No rigidity/ meningismus. LUNGS: Breath sounds clear to auscultation bilaterally and equal. No wheezes rales or rhonchi. HEART: Regular rate and rhythm without murmurs, rubs, gallops. NEUROLOGICAL: Cranial nerves grossly intact. Normal speech, normal gait. Normal sensory, motor exams PSYCH: Normal mood, normal affect. SKIN: Warm, Dry, normal turgor, no rashes or lesions noted. - INFECTION CONTROL TRAVEL OUTSIDE OF THE [place] IN LAST 30 DAYS: No Course - Re-evaluation Re-evalutation: 08/21/17 17:13 Patient is an afebrile, well-hydrated, 32-year-old female who presents the ED with dental pain to #32, suspect infection versus nerve root etiology. Vitals are stable. PE is otherwise unremarkable. I will send her home with a prescription for penicillin and viscous lidocaine. Low suspicion for any meningitis, sepsis, peritonsillar/pharyngeal abscess, respiratory compromise, Emil's, temporal arteritis, or other emergent systemic condition at this time. Patient is aware this condition can change from initial presentation and she needs to monitor symptoms closely. Conservative measures otherwise for symptoms. Call to schedule an appointment with a dentist for further evaluation and management. Recheck with your PCM this week as well. Return to the ED with any worsening/concerning symptoms otherwise as reviewed in discharge. Patient is in agreement. Discharge - Discharge Clinical Impression: Pain, dental Condition: Stable Disposition: HOME, SELF-CARE Instructions: Penicillin V K ([facility]), Toothache ([facility]), Dentist Additional Instructions: [place] and floss twice daily Maintain fluid intake Take antibiotics as directed Mouthwash, salt water gargles, peroxide rinse as needed Tylenol/ibuprofen as needed Recheck with PCM this week Call today/tomorrow and schedule an appointment with your dentist for further evaluation Return to the ED with any worsening symptoms and/or development of fever, headache, facial swelling, swelling of lips/tongue/throat, trouble swallowing, drooling, hoarseness, neck pain/stiffness, chest pain, palpitations, syncope, shortness of breath, trouble breathing, abdominal pain, n/v/d, numbness/tingling , or other worsening symptoms that are concerning to you. Prescriptions: Penicillin V Potassium [Penicillin Vk 500 mg Tablet] 500 mg PO BID #20 tablet Referrals: [facility] [Provider Group] - Follow up as needed
[2017-08-21] MEDS ORDERED: IBUPROFEN 600 MG TABLET PO ONE (17:24)
== END 2017-08-21 17:25 | disposition home or self-care (01) ==
LOC: ER 16:16
DX: K08.89 Other specified disorders of teeth and supporting structures (principal); R22.0 Localized swelling, mass and lump, head
CPT/HCPCS: 99282; J3490

== ENCOUNTER 2017-08-23 11:03 | Emergency (ER) | payer SELFPAY ==
[2017-08-23 11:10] VITALS: BP 93/53
[2017-08-23] MEDS ORDERED: HYDROCODONE/ACETAMINOPHEN 5-325 MG TABLET PO ONE (11:59)
--- NOTE | 2017-08-23 12:00 | ER Document Report ---
ED Oral Problem - General Chief Complaint: Toothache Stated Complaint: MOUTH AND EAR PAIN Time Seen by Provider: 08/23/17 11:59 Mode of Arrival: Ambulatory Information source: Patient Notes: patient is a 32-year-old who presents to the ER today for 1 week of Tooth pain to the right upper jaw. Patient states that it causes pain that radiates to her ear and there is a little swelling to the area as well. Patient was seen here 2 days ago and placed on antibiotics, given lidocaine to apply to the area , but states that that is not working. She has an appointment with a dentist in 6 days and states that she could not get in sooner than that. She is still taking her penicillin prescribed to her when she was here for the dental infection. She denies any fevers or chills that she is noticed, any drainage. TRAVEL OUTSIDE OF THE [place] IN LAST 30 DAYS: No - Related Data Allergies/Adverse Reactions: banana [Banana] Allergy (Intermediate, Verified 08/23/17 11:04) swelling morphine [Morphine] Allergy (Intermediate, Verified 08/23/17 11:04) Hives Past Medical History - General Information source: Patient - Social History Smoking Status: Former Smoker Family History: Reviewed & Not Pertinent - Past Medical History Cardiac Medical History: Denies: Hx Hypertension Pulmonary Medical History: Reports: Hx Asthma Neurological Medical History: Reports: Hx Seizures - NEVER EVALUATED BY NEUROLOGY Endocrine Medical History: Denies: Hx Diabetes Mellitus Type 1, Hx Diabetes Mellitus Type 2 Renal/ Medical History: Reports: Hx Ectopic . Denies: Hx Kidney Stones, Hx Ovarian Cysts, Hx Peritoneal Dialysis, Hx Pelvic Inflammatory Disease , Hx Renal Insufficiency GI Medical History: Denies: Hx Gastritis, Hx Gastroesophageal Reflux Disease Musculoskeltal Medical History: Denies Hx Musculoskeletal Trauma Skin Medical History: Denies Hx Cellulitis, Denies Hx Eczema, Denies Hx MRSA, Denies Hx Psoriasis Past Surgical History: Reports: Hx Section - x1, Hx Gynecologic Surgery - left fallopion - Immunizations Hx Diphtheria, Pertussis, Tetanus Vaccination: Yes - 2010 Review of Systems - Review of Systems Constitutional: No symptoms reported EENT: See HPI Cardiovascular: No symptoms reported Respiratory: No symptoms reported Gastrointestinal: No symptoms reported Genitourinary: No symptoms reported Female Genitourinary: No symptoms reported Musculoskeletal: No symptoms reported Skin: No symptoms reported Hematologic/Lymphatic: No symptoms reported Neurological/Psychological: No symptoms reported Physical Exam - Vital signs Vitals: Temp Pulse Resp BP Pulse Ox 98.8 F 69 20 93/53 L 100 08/23/17 11:09 08/23/17 11:09 08/23/17 11:09 08/23/17 11:09 08/23/17 11:09 - Notes Notes: PHYSICAL EXAMINATION: GENERAL: uncomfortable appearing, but in no acute distress. HEAD: Atraumatic, normocephalic. EYES: Pupils equal round and reactive to light, extraocular movements intact, sclera anicteric, conjunctiva are normal. ENT: ear canals without erythema or foreign body, TMs pearly mancini with good bony landmarks, nares patent, oropharynx clear without exudates. Moist mucous membranes. Edema noted to the right buccal space, no obvious induration or fluctuance, tender to all teeth to the right upper and lower jaw NECK: Normal range of motion, supple without lymphadenopathy LUNGS: CTAB and equal. No wheezes rales or rhonchi. HEART: Regular rate and rhythm without murmurs EXTREMITIES: Normal range of motion, no pitting edema. No cyanosis. NEUROLOGICAL: Cranial nerves grossly intact. Normal sensory/motor exams. PSYCH: Normal mood, normal affect. SKIN: Warm, Dry, normal turgor, no rashes or lesions noted Course - Re-evaluation Re-evalutation: 08/23/17 14:16 Patient to continue penicillin. Patient to keep her dentist appointment. - Vital Signs Vital signs: Temp Pulse Resp BP Pulse Ox 98.8 F 69 20 93/53 L 100 08/23/17 11:09 08/23/17 11:09 08/23/17 11:09 08/23/17 11:09 08/23/17 11:09 Discharge - Discharge Clinical Impression: Pain, dental Condition: Stable Disposition: HOME, SELF-CARE Instructions: Toothache ([facility]) Additional Instructions: Return immediately for any new or worsening symptoms. Follow up with primary care provider, call tomorrow to make followup appointment. Prescriptions: Acetaminophen with Codeine [Tylenol #3 Tablet] 1 each PO Q4HP PRN #10 tablet PRN Reason: Forms: Return to Work
== END 2017-08-23 12:39 | disposition home or self-care (01) ==
LOC: ER 11:03
DX: K04.7 Periapical abscess without sinus (principal); K08.89 Other specified disorders of teeth and supporting structures; J45.909 Unspecified asthma, uncomplicated; Z91.018 Allergy to other foods; Z88.5 Allergy status to narcotic agent; Z87.891 Personal history of nicotine dependence
CPT/HCPCS: 99282

== ENCOUNTER 2017-11-17 10:00 | Emergency (ER) | payer SELFPAY ==
--- NOTE | 2017-11-17 10:46 | ER Document Report ---
ED Medical Screen (RME) - General Chief Complaint: Bloody Stools Stated Complaint: BLOODY STOOL HEADACHE Time Seen by Provider: 11/17/17 10:46 Notes: Patient has several days of body aches and URI symptoms. She also noticed today that she had bright red blood in her stool and rectal pain when she had a bowel movement. She states that she had gone several days without a bowel movement and had a large bowel movement today. TRAVEL OUTSIDE OF THE [place] IN LAST 30 DAYS: No - Related Data Allergies/Adverse Reactions: banana [Banana] Allergy (Intermediate, Verified 08/23/17 11:04) swelling morphine [Morphine] Allergy (Intermediate, Verified 08/23/17 11:04) Hives Past Medical History - Social History Frequency of alcohol use: None Drug Abuse: None - Past Medical History Cardiac Medical History: Denies: Hx Hypertension Pulmonary Medical History: Reports: Hx Asthma Neurological Medical History: Reports: Hx Seizures - NEVER EVALUATED BY NEUROLOGY Endocrine Medical History: Denies: Hx Diabetes Mellitus Type 1, Hx Diabetes Mellitus Type 2 Renal/ Medical History: Reports: Hx Ectopic . Denies: Hx Kidney Stones, Hx Ovarian Cysts, Hx Peritoneal Dialysis, Hx Pelvic Inflammatory Disease , Hx Renal Insufficiency GI Medical History: Denies: Hx Gastritis, Hx Gastroesophageal Reflux Disease Musculoskeltal Medical History: Denies Hx Musculoskeletal Trauma Skin Medical History: Denies Hx Cellulitis, Denies Hx Eczema, Denies Hx MRSA, Denies Hx Psoriasis Past Surgical History: Reports: Hx Section - x1, Hx Gynecologic Surgery - left fallopion - Immunizations Hx Diphtheria, Pertussis, Tetanus Vaccination: Yes - 2010 Physical Exam - Vital signs Vitals: Temp Pulse Resp BP Pulse Ox 98.6 F 81 18 109/76 98 11/17/17 10:03 11/17/17 10:03 11/17/17 10:03 11/17/17 10:03 11/17/17 10:03 Course - Vital Signs Vital signs: Temp Pulse Resp BP Pulse Ox 98.6 F 81 18 109/76 98 11/17/17 10:03 11/17/17 10:03 11/17/17 10:03 11/17/17 10:03 11/17/17 10:03
[2017-11-17 11:02] LABS: ABSOLUTE EOSINOPHILS # (AUTO) 0.3 10^3/uL (0.0-0.6); ABSOLUTE LYMPHOCYTES (AUTO) 1.6 10^3/uL (0.5-4.7); ABSOLUTE MONOCYTES (AUTO) 0.5 10^3/uL (0.1-1.4); ABSOLUTE NEUT (AUTO) 1.9 10^3/uL (1.7-8.2); BASOPHILS % (AUTO) 0.8 % (0-2); EOSINOPHILS % (AUTO) 6.2 % (0-6); HEMATOCRIT 43.1 % (36.0-47.0); HEMOGLOBIN 14.2 g/dL (12.0-15.5); LYMPHOCYTES % (AUTO) 37.9 % (13-45); MEAN CORPUSCULAR HGB CONC 33.1 g/dL (32.0-36.0); MEAN CORPUSCULAR VOLUME 91 fl (80-97); MONOCYTES % (AUTO) 11.4 % (3-13); PLATELET COUNT 287 10^3/uL (150-450); RED BLOOD COUNT 4.74 10^6/uL (3.72-5.28); RED CELL DISTRIBUTION WIDTH 13.7 % (11.5-14.0); SEGMENTED NEUTROPHILS % (AUTO) 43.7 % (42-78); TOTAL CELLS COUNTED % (AUTO) 100 %; WHITE BLOOD COUNT 4.2 10^3/uL (4.0-10.5)
[2017-11-17 11:20] LABS: ALANINE AMINOTRANSFERASE 35 U/L (9-52); ALBUMIN 4.1 g/dL (3.5-5.0); ALKALINE PHOSPHATASE 61 U/L (38-126); ANION GAP 7 (5-19); ASPARTATE AMINO TRANSFERASE 26 U/L (14-36); BLOOD UREA NITROGEN 8 mg/dL (7-20); CALCIUM 9.7 mg/dL (8.4-10.2); CARBON DIOXIDE 29 mmol/L (22-30); CHLORIDE 105 mmol/L (98-107); GLUCOSE 86 mg/dL (75-110); POTASSIUM 4.2 mmol/L (3.6-5.0); SODIUM 140.7 mmol/L (137-145); TOTAL PROTEIN 7.2 g/dL (6.3-8.2)
[2017-11-17 11:22] LABS: BILIRUBIN,TOTAL < 0.1 mg/dL (0.2-1.3)
--- NOTE | 2017-11-17 11:22 | ER Document Report ---
ED General - General Mode of Arrival: Ambulatory Information source: Patient TRAVEL OUTSIDE OF THE [place] IN LAST 30 DAYS: No <PIERRE ARORA - Last Filed: 11/17/17 12:43> <MATTHEW STACK - Last Filed: 11/20/17 09:25> - General Chief Complaint: Bloody Stools Stated Complaint: BLOODY STOOL HEADACHE Time Seen by Provider: 11/17/17 10:46 Notes: Patient is a 32-year-old female who presents to the emergency department today with complaints of "everything that can go wrong is going wrong today". Patient has multiple generalized complaints. Patient states that on ( November 13) she "felt like she was going to have a seizure" but never did (Keppra 750mg twice daily) and then on the she developed a "cold" with sneezing and coughing with nasal congestion. Patient states that she now has a headache, generalized body aches, vomiting, and rectal bleeding. Patient states she is "passing clots out of the back". Patient states that she has not had a bowel movement for the last 6 days, until today prior to arrival which is when the rectal bleeding began. Patient denies a history of migraine headaches , vaginal discharge, or concerns for STI. (PIERRE ARORA) - Related Data Allergies/Adverse Reactions: banana [Banana] Allergy (Intermediate, Verified 08/23/17 11:04) swelling morphine [Morphine] Allergy (Intermediate, Verified 08/23/17 11:04) Hives Past Medical History - General Information source: Patient - Social History Smoking Status: Never Smoker Frequency of alcohol use: None Drug Abuse: None Family History: Reviewed & Not Pertinent Patient has suicidal ideation: No Patient has homicidal ideation: No Pulmonary Medical History: Reports: Hx Asthma Neurological Medical History: Reports: Hx Seizures - NEVER EVALUATED BY NEUROLOGY Renal/ Medical History: Reports: Hx Ectopic Past Surgical History: Reports: Hx Section - x1, Hx Gynecologic Surgery - left fallopion - Immunizations Hx Diphtheria, Pertussis, Tetanus Vaccination: Yes - 2010 <PIERRE ARORA - Last Filed: 11/17/17 12:43> Review of Systems - Review of Systems Constitutional: No symptoms reported EENT: See HPI, Nose congestion Cardiovascular: No symptoms reported Respiratory: See HPI, Cough Gastrointestinal: See HPI, Vomiting, Rectal bleeding Genitourinary: denies: Discharge Female Genitourinary: No symptoms reported Musculoskeletal: See HPI, Muscle pain - generalized body aches Skin: No symptoms reported Hematologic/Lymphatic: No symptoms reported Neurological/Psychological: See HPI, Headaches -: Yes All other systems reviewed and negative <PIERRE ARORA - Last Filed: 11/17/17 12:43> Physical Exam <PIERRE ARORA - Last Filed: 11/17/17 12:43> <MATTHEW STACK - Last Filed: 11/20/17 09:25> - Vital signs Vitals: Temp Pulse Resp BP Pulse Ox 98.6 F 81 18 109/76 98 11/17/17 10:03 11/17/17 10:03 11/17/17 10:03 11/17/17 10:03 11/17/17 10:03 - Notes Notes: Physical Exam: General: Alert, appears well. HEENT: Normocephalic. Atraumatic. PERRL. Extraocular movements intact. Oropharynx clear. No posterior oropharynx erythema or exudate. Neck: Supple. Non-tender. Respiratory: No respiratory distress. Clear and equal breath sounds bilaterally. Cardiovascular: Regular rate and rhythm. Abdominal: Minimal RLQ and LLQ tenderness with palpation. No distension. Normal Bowel Sounds. Rectal: No anal fissure. No tenderness. No gross blood. Back: Non-tender. No deformity or step off. Extremities: Moves all four extremities. Upper extremities: Normal inspection. Normal ROM. Lower extremities: Normal inspection. No edema. Normal ROM. Neurological: Normal cognition. AAOx4. Normal speech. Cranial nerves II through XII grossly intact bilaterally, no pronator drift. Psychological: Normal affect. Normal Mood. Skin: Warm. Dry. Normal color. (PIERRE ARORA) Course - Laboratory Result Diagrams: 11/17/17 10:53 11/17/17 10:53 <PIERRE ARORA - Last Filed: 11/17/17 12:43> - Laboratory Result Diagrams: 11/17/17 10:53 11/17/17 10:53 <MATTHEW STACK - Last Filed: 11/20/17 09:25> - Re-evaluation Re-evalutation: 11/17/17 11:43 Nursing staff states patient does not want to have any IV medications/fluid as she "needs to leave by 2pm". (PIERRE ARORA) 11/17/17 12:48 Patient well-appearing normal vitals with no acute pathology on rectal exam. Will provide oral Compazine for headache and Azelastine for sinus congestion ( MATTHEW STACK) - Vital Signs Vital signs: Temp Pulse Resp BP Pulse Ox 98.5 F 80 18 113/75 100 11/17/17 13:02 11/17/17 13:02 11/17/17 13:02 11/17/17 13:02 11/17/17 13:02 - Laboratory Laboratory results interpreted by me: 11/17/17 11/17/17 10:53 10:53 Eosinophils % 6.2 H Total Bilirubin < 0.1 L Discharge <PIERRE ARORA - Last Filed: 11/17/17 12:43> <MATTHEW STACK - Last Filed: 11/20/17 09:25> - Discharge Clinical Impression: Rhinitis, allergic Qualifiers: Allergic rhinitis trigger: unspecified Allergic rhinitis seasonality: seasonal Qualified Code(s): J30.2 - Other seasonal allergic rhinitis Fatigue Qualifiers: Fatigue type: unspecified Qualified Code(s): R53.83 - Other fatigue Headache Qualifiers: Headache type: unspecified Headache chronicity pattern: unspecified pattern Intractability: not intractable Qualified Code(s): R51 - Headache Condition: Good Disposition: HOME, SELF-CARE Instructions: Fatigue ([facility]), Hay Fever ([facility]), Headache ([facility]), OTC Antihistamines ([facility]) Prescriptions: Azelastine HCl 205.5 mcg NS BID PRN #1 bottle PRN Reason: Prochlorperazine Maleate [Compazine 10 mg Tablet] 10 mg PO ASDIR PRN #20 tablet PRN Reason: Forms: Return to Work Scribe Attestation: 11/17/17 12:42 I personally performed the services described in the documentation, reviewed and edited the documentation which was dictated to the scribe in my presence, and it accurately records my words and actions. (PIERRE ARORA) I personally performed the services described in the documentation, reviewed and edited the documentation which was dictated to the scribe in my presence, and it accurately records my words and actions. 11/20/17 09:25 (MATTHEW STACK) Scribe Documentation - Scribe Written by Scribe:: Damon Nascimento, 11/17/2017 1235 acting as scribe for :: Sean <PIERRE ARORA - Last Filed: 11/17/17 12:43>
[2017-11-17] MEDS ORDERED: PROCHLORPERAZINE EDISYLATE INJ 10 MG/2 ML VIAL IV ONE (11:23)
[2017-11-17] MEDS ORDERED: KETOROLAC TROMETHAMINE INJ/PF 30 MG/1 ML SDV IV ONE (11:23)
[2017-11-17] MEDS ORDERED: DIPHENHYDRAMINE HCL 50 MG/ML VIAL IV ONE (11:23)
[2017-11-17 11:38] LABS: APPEARANCE,URINE SLIGHTLY-CLOUDY; BILIRUBIN,URINE NEGATIVE (NEGATIVE); COLOR,URINE YELLOW; GLUCOSE, URINE NEGATIVE (NEGATIVE); KETONES,URINE NEGATIVE (NEGATIVE); LEUKOCYTE ESTERASE,URINE NEGATIVE (NEGATIVE); NITRITE,URINE NEGATIVE (NEGATIVE); PROTEIN,URINE NEGATIVE (NEGATIVE); URINE SPECIFIC GRAVITY 1.009; UROBILINOGEN,URINE NEGATIVE mg/dL (<2.0)
[2017-11-17 13:04] VITALS: BP 113/75
== END 2017-11-17 13:02 | disposition home or self-care (01) ==
LOC: ER 10:00
DX: J30.2 Other seasonal allergic rhinitis (principal); R53.83 Other fatigue; R51 Headache; R19.5 Other fecal abnormalities; R05 Cough; R09.81 Nasal congestion; M79.1 Myalgia; R11.2 Nausea with vomiting, unspecified; Z79.899 Other long term (current) drug therapy
CPT/HCPCS: 36415; 80053; 81001; 81025; 85025; 99284

== ENCOUNTER 2018-03-01 19:26 | Emergency (ER) | payer MEDICAID, OTHER ==
[2018-03-01 19:43] VITALS: BP 104/66
--- NOTE | 2018-03-01 20:00 | ER Document Report ---
HPI - HPI Pain Level: 3 Notes: Patient is a 33-year-old female with no significant past medical history who presents to the ED complaining of bilateral ear pain, right worse than left, 2- 3 days. Patient states that she has had intermittent pain over the last few months. Her pains do not radiate. She states that she does wear a headset all day for work. She is eating and drinking without any difficulties. She is urinating normally and having normal bowel movements. Denies any smoking, IV drug use. She has not had any tinnitus or dizziness. Denies any headache, fever, head injury, neck pain, changes in vision/speech/mentation/hearing, URI, sore throat, chest pain, palpitations, syncope, cough, shortness of breath, wheeze, dyspnea, abdominal pain, nausea/vomiting/diarrhea, urinary retention, dysuria, hematuria, or rash. - ROS Systems Reviewed and Negative: Yes All other systems reviewed and negative - REPRODUCTIVE Reproductive: REPORTS: : Past Medical History - Social History Smoking Status: Never Smoker Family History: Reviewed & Not Pertinent - Past Medical History Cardiac Medical History: Denies: Hx Hypertension Pulmonary Medical History: Reports: Hx Asthma Neurological Medical History: Reports: Hx Seizures - NEVER EVALUATED BY NEUROLOGY Endocrine Medical History: Denies: Hx Diabetes Mellitus Type 1, Hx Diabetes Mellitus Type 2 Renal/ Medical History: Reports: Hx Ectopic . Denies: Hx Kidney Stones, Hx Ovarian Cysts, Hx Peritoneal Dialysis, Hx Pelvic Inflammatory Disease , Hx Renal Insufficiency GI Medical History: Denies: Hx Gastritis, Hx Gastroesophageal Reflux Disease Musculoskeltal Medical History: Denies Hx Musculoskeletal Trauma Skin Medical History: Denies Hx Cellulitis, Denies Hx Eczema, Denies Hx MRSA, Denies Hx Psoriasis Past Surgical History: Reports: Hx Section - x1, Hx Gynecologic Surgery - left fallopion - Immunizations Hx Diphtheria, Pertussis, Tetanus Vaccination: Yes - 2010 Vertical Provider Document - CONSTITUTIONAL Agree With Documented VS: Yes Notes: PHYSICAL EXAMINATION: GENERAL: Well-appearing, well-nourished and in no acute distress. A&Ox4. Answers questions appropriately. Moves comfortably w/o notable distress HEAD: Atraumatic, normocephalic. EYES: Pupils equal round and reactive to light, extraocular movements intact, sclera anicteric, conjunctiva are normal. ENT: Right EAC tenderness without swelling or discharge. + Tenderness to tragus Rt. No mastoid tenderness bilaterally. TM's intact b/l without erythema, fluid , or perforation. Nares patent and without discharge. oropharynx no erythema without exudates. No tonsilar hypertrophy without erythema or exudate. No palatine shift. Uvula midline. No tongue protrusion. No drooling, hoarseness , or airway compromise. Moist mucous membranes. No sinus tenderness. NECK: Normal range of motion, supple without lymphadenopathy. No rigidity/ meningismus. LUNGS: Breath sounds clear to auscultation bilaterally and equal. No wheezes rales or rhonchi. No retractions HEART: Regular rate and rhythm without murmurs, rubs, gallops. NEUROLOGICAL: Normal speech, normal gait. PSYCH: Normal mood, normal affect. SKIN: Warm, Dry, normal turgor, no rashes or lesions noted. - INFECTION CONTROL TRAVEL OUTSIDE OF THE [place] IN LAST 30 DAYS: No Course - Re-evaluation Re-evalutation: 03/01/18 19:58 Patient is an afebrile, well-hydrated, 33-year-old female who presents to the ED with an acute otitis externa of her right ear. Vitals are acceptable without any significant tachycardia, tachypnea, or hypoxia. PE is otherwise unremarkable. No labs or imaging warranted at this time based on H&P. Patient is tolerating p.o. without difficulties and is nontoxic-appearing. Low suspicion for any sepsis, meningitis, severe dehydration, respiratory compromise , mastoiditis, or other systemic emergent condition at this time. Patient is aware that condition can change from initial presentation and she needs to monitor symptoms closely and seek medical attention with any acute changes. I will send her home with a prescription for Ciprodex. Conservative measures otherwise for symptoms. Recheck with your PCM in 3-5 days. Call ENT to schedule an appointment for further evaluation and management. Return to the ED with any worsening/concerning symptoms otherwise as reviewed in discharge. Patient is in agreement. - Vital Signs Vital signs: Temp Pulse Resp BP Pulse Ox 98.6 F 71 20 104/66 95 03/01/18 19:42 03/01/18 19:42 03/01/18 19:42 03/01/18 19:42 03/01/18 19:42 Discharge - Discharge Clinical Impression: Acute otitis externa of right ear Qualifiers: Otitis externa type: unspecified type Qualified Code(s): H60.501 - Unspecified acute noninfective otitis externa, right ear Condition: Stable Disposition: HOME, SELF-CARE Instructions: Use of Ear Drops ([facility]), Otitis Externa ([facility]) Additional Instructions: Maintain adequate fluid intake Take meds as directed tylenol/ibuprofen as needed Avoid Q-tips in the ears over the counter cold medication as needed for symptoms F/u: with your PCM in 2-3 days for a recheck Call ENT in the morning to schedule an appointment for further evaluation and management Return to the ED with any fever, dizziness, tinnitus, headaches, worsening pain , chest pain, palpitations, syncope, neck pain/stiffness, shortness of breath, wheezing, drooling, trouble swallowing/breathing, abdominal pain, n/v/d, rash, or worsening/concerning symptoms otherwise. Prescriptions: Ciprofloxacin HCl/Dexameth [Ciprodex Otic Suspension 7.5 ml Bottle] 4 drop OT BID #1 bottle Referrals: MATTHEW ALMAGUER DO [ASSOCIATE] - Follow up in 3-5 days
== END 2018-03-01 20:05 | disposition home or self-care (01) ==
LOC: ER 19:26
DX: H60.501 Unspecified acute noninfective otitis externa, right ear (principal); H92.03 Otalgia, bilateral
CPT/HCPCS: 99282

== ENCOUNTER 2018-04-15 18:08 | Emergency (ER) | payer MEDICAID ==
[2018-04-15] MEDS ORDERED: ONDANSETRON HCL INJ/PF 4 MG/2 ML SDV IV ONE (19:45)
--- NOTE | 2018-04-15 19:47 | ER Document Report ---
ED Medical Screen (RME) - General Chief Complaint: Abdominal Pain Stated Complaint: EYE PAIN/STOMACH PAIN Time Seen by Provider: 04/15/18 19:45 Mode of Arrival: Ambulatory Information source: Patient Notes: Patient is an otherwise healthy 33-year-old female who presents with chief complaint of mid abdominal/periumbilical pain since Friday. Patient reports the pain is intermittent, when he hits it is severe and feels like a stabbing and twisting pain. Patient reports associated nausea but denies any vomiting, diarrhea or fever. Patient denies any dysuria, urinary frequency or abnormal vaginal discharge. Exam: Tenderness to palpation over periumbilical area. Lung sounds clear to auscultation bilaterally. No acute distress noted. I have greeted and performed a rapid initial assessment of this patient. A comprehensive ED assessment and evaluation of the patient, analysis of test results and completion of the medical decision making process will be conducted by additional ED providers. Dictation of this chart was performed using voice recognition software; therefore, there may be some unintended grammatical errors. TRAVEL OUTSIDE OF THE [place] IN LAST 30 DAYS: No - Related Data Allergies/Adverse Reactions: banana [Banana] Allergy (Intermediate, Verified 04/15/18 18:08) swelling morphine [Morphine] Allergy (Intermediate, Verified 04/15/18 18:08) Hives Past Medical History - Past Medical History Cardiac Medical History: Denies: Hx Hypertension Pulmonary Medical History: Reports: Hx Asthma Neurological Medical History: Reports: Hx Seizures - NEVER EVALUATED BY NEUROLOGY Endocrine Medical History: Denies: Hx Diabetes Mellitus Type 1, Hx Diabetes Mellitus Type 2 Renal/ Medical History: Reports: Hx Ectopic . Denies: Hx Kidney Stones, Hx Ovarian Cysts, Hx Peritoneal Dialysis, Hx Pelvic Inflammatory Disease , Hx Renal Insufficiency GI Medical History: Denies: Hx Gastritis, Hx Gastroesophageal Reflux Disease Musculoskeltal Medical History: Denies Hx Musculoskeletal Trauma Skin Medical History: Denies Hx Cellulitis, Denies Hx Eczema, Denies Hx MRSA, Denies Hx Psoriasis Past Surgical History: Reports: Hx Section - x1, Hx Gynecologic Surgery - left fallopion - Immunizations Hx Diphtheria, Pertussis, Tetanus Vaccination: Yes - 2010 Physical Exam - Vital signs Vitals: Temp Pulse BP Pulse Ox 98.5 F 70 109/68 98 04/15/18 18:35 04/15/18 18:35 04/15/18 18:35 04/15/18 18:35 Course - Vital Signs Vital signs: Temp Pulse Resp BP Pulse Ox 98.5 F 70 109/68 98 04/15/18 18:35 04/15/18 18:35 04/15/18 18:35 04/15/18 18:35
[2018-04-15 20:36] LABS: ABSOLUTE EOSINOPHILS # (AUTO) 0.2 10^3/uL (0.0-0.6); ABSOLUTE LYMPHOCYTES (AUTO) 2.4 10^3/uL (0.5-4.7); ABSOLUTE MONOCYTES (AUTO) 0.4 10^3/uL (0.1-1.4); ABSOLUTE NEUT (AUTO) 6.1 10^3/uL (1.7-8.2); BASOPHILS % (AUTO) 0.4 % (0-2); EOSINOPHILS % (AUTO) 1.9 % (0-6); HEMOGLOBIN 14.9 g/dL (12.0-15.5); LYMPHOCYTES % (AUTO) 26.8 % (13-45); MEAN CORPUSCULAR HEMOGLOBIN 30.5 pg (27.0-33.4); MEAN CORPUSCULAR HGB CONC 33.9 g/dL (32.0-36.0); MEAN CORPUSCULAR VOLUME 90 fl (80-97); MONOCYTES % (AUTO) 4.6 % (3-13); PLATELET COUNT 339 10^3/uL (150-450); RED BLOOD COUNT 4.88 10^6/uL (3.72-5.28); RED CELL DISTRIBUTION WIDTH 13.9 % (11.5-14.0); SEGMENTED NEUTROPHILS % (AUTO) 66.3 % (42-78); TOTAL CELLS COUNTED % (AUTO) 100 %; WHITE BLOOD COUNT 9.1 10^3/uL (4.0-10.5)
[2018-04-15 20:41] LABS: APPEARANCE,URINE CLOUDY; BILIRUBIN,URINE NEGATIVE (NEGATIVE); COLOR,URINE YELLOW; GLUCOSE, URINE NEGATIVE (NEGATIVE); KETONES,URINE TRACE mg/dL (NEGATIVE); LEUKOCYTE ESTERASE,URINE LARGE (NEGATIVE); NITRITE,URINE NEGATIVE (NEGATIVE); PROTEIN,URINE NEGATIVE (NEGATIVE); UROBILINOGEN,URINE NEGATIVE mg/dL (<2.0)
[2018-04-15 21:44] LABS: ALANINE AMINOTRANSFERASE 31 U/L (9-52); ALBUMIN 4.5 g/dL (3.5-5.0); ALKALINE PHOSPHATASE 68 U/L (38-126); ANION GAP 12 (5-19); ASPARTATE AMINO TRANSFERASE 19 U/L (14-36); BILIRUBIN,DIRECT 0.2 mg/dL (0.0-0.4); BILIRUBIN,TOTAL 0.4 mg/dL (0.2-1.3); BLOOD UREA NITROGEN 9 mg/dL (7-20); CALCIUM 9.9 mg/dL (8.4-10.2); CARBON DIOXIDE 28 mmol/L (22-30); CHLORIDE 101 mmol/L (98-107); GLUCOSE 88 mg/dL (75-110); LIPASE 103.1 U/L (23-300); POTASSIUM 4.2 mmol/L (3.6-5.0); SODIUM 141.1 mmol/L (137-145); TOTAL PROTEIN 8.2 g/dL (6.3-8.2)
[2018-04-15] MEDS ORDERED: DIPHENHYDRAMINE HCL 50 MG/ML VIAL IV ONE (22:08)
[2018-04-15] MEDS ORDERED: METOCLOPRAMIDE HCL INJ/PF 10 MG/2 ML SDV IV ONE (22:08)
[2018-04-15] MEDS ORDERED: FENTANYL CITRATE INJ/PF 100 MCG/2 ML AMPUL IV ONE (22:29)
--- NOTE | 2018-04-15 22:39 | ER Document Report ---
ED General - General Chief Complaint: Abdominal Pain Stated Complaint: EYE PAIN/STOMACH PAIN Time Seen by Provider: 04/15/18 19:45 Mode of Arrival: Ambulatory Information source: Patient Notes: 33-year-old female with with reported history of epilepsy presents with complaint of abdominal pain, nausea and headache. Patient states abdominal pain started 3 days prior to arrival. It is located in the periumbilical epigastric region. She describes it as an intermittent tearing pain that is worse when she lays flat. SHe states when she lays flat her pain is suprapubic Patient has had associated nausea without vomiting. Her last bowel movement was yesterday and described as normal. She denies any black or bloody stools. Patient has had a decrease in appetite. She denies dysuria, hematuria, vaginal discharge. Last menstrual period was last week. She is currently sexually active. She denies any concern for STD. She denies history of STD. Patient denies sick contacts, recent antibiotic use and recent travel. Patient has been on the keto diet for a few months. Patient also complaining of right- sided aching headache. TRAVEL OUTSIDE OF THE [place] IN LAST 30 DAYS: No - HPI Onset: Other Onset/Duration: Gradual, Intermittent, Worse Quality of pain: Other - Tearing Associated symptoms: Headache, Nausea. denies: Chest pain, Diarrhea, Vomiting - Related Data Allergies/Adverse Reactions: banana [Banana] Allergy (Intermediate, Verified 04/15/18 18:08) swelling morphine [Morphine] Allergy (Intermediate, Verified 04/15/18 18:08) Hives Past Medical History - General Information source: Patient - Social History Smoking Status: Never Smoker Chew tobacco use (# tins/day): No Frequency of alcohol use: Social Drug Abuse: None Family History: Reviewed & Not Pertinent Patient has suicidal ideation: No Patient has homicidal ideation: No - Past Medical History Cardiac Medical History: Denies: Hx Hypertension Pulmonary Medical History: Reports: Hx Asthma Neurological Medical History: Reports: Hx Seizures - NEVER EVALUATED BY NEUROLOGY Endocrine Medical History: Denies: Hx Diabetes Mellitus Type 1, Hx Diabetes Mellitus Type 2 Renal/ Medical History: Reports: Hx Ectopic . Denies: Hx Kidney Stones, Hx Ovarian Cysts, Hx Peritoneal Dialysis, Hx Pelvic Inflammatory Disease , Hx Renal Insufficiency GI Medical History: Denies: Hx Gastritis, Hx Gastroesophageal Reflux Disease Musculoskeletal Medical History: Denies Hx Musculoskeletal Trauma Skin Medical History: Denies Hx Cellulitis, Denies Hx Eczema, Denies Hx MRSA, Denies Hx Psoriasis Past Surgical History: Reports: Hx Section - x1, Hx Gynecologic Surgery - left fallopion - Immunizations Hx Diphtheria, Pertussis, Tetanus Vaccination: Yes - 2010 Review of Systems - Review of Systems Notes: REVIEW OF SYSTEMS: CONSTITUTIONAL : Denies fever, Denies recent illness. Denies weight loss, recent hospitalizations. EENT: Denies visual changes, eye pain. Denies nasal or sinus congestion or discharge. Denies sore throat, oral lesions, difficulty swallowing. CARDIOVASCULAR: Denies chest pain. Denies palpitations. Denies lower extremity edema. RESPIRATORY: Denies cough, cold, or chest congestion. Denies shortness of breath, wheezing. GASTROINTESTINAL: Denies vomiting, or diarrhea. Denies blood in vomitus, stools, or per rectum. Denies black, tarry stools. Denies constipation. GENITOURINARY: Denies difficulty urinating, painful urination, frequency, blood in urine, or vaginal discharge. MUSCULOSKELETAL: Denies back or neck pain or stiffness. Denies joint pain or swelling. SKIN: Denies rash, lesions or sores. HEMATOLOGIC : Denies easy bruising or bleeding. LYMPHATIC: Denies swollen glands. NEUROLOGICAL: Denies confusion or altered mental status. Denies passing out or loss of consciousness. Denies dizziness or lightheadedness. Denies weakness or paralysis. Denies problems difficulty with ambulation, slurred speech. Denies sensory loss, numbness, or tingling. Denies seizures. PSYCHIATRIC: Denies anxiety or stress. Denies depression, suicidal ideation, or homicidal ideation. Denies visual or auditory hallucinations. Physical Exam - Vital signs Vitals: Temp Pulse BP Pulse Ox 98.5 F 70 109/68 98 04/15/18 18:35 04/15/18 18:35 04/15/18 18:35 04/15/18 18:35 Interpretation: Normal - Notes Notes: PHYSICAL EXAMINATION: GENERAL: Well-appearing, well-nourished and in no acute distress. HEAD: Atraumatic, normocephalic. EYES: Pupils equal round and reactive to light, extraocular movements intact, conjunctiva are normal. ENT: Nares patent, oropharynx clear without exudates. Moist mucous membranes. NECK: Normal range of motion, supple without lymphadenopathy LUNGS: Breath sounds clear to auscultation bilaterally and equal. No wheezes rales or rhonchi. HEART: Regular rate and rhythm without murmurs ABDOMEN: Soft, nontender, nondistended abdomen. No guarding, no rebound. No masses appreciated. Female : No external vaginal lesions. Thick white foul-smelling discharge. No cervical motion tenderness. No adnexal tenderness. Musculoskeletal: Normal range of motion, no pitting or edema. No cyanosis. NEUROLOGICAL: Cranial nerves grossly intact. Normal speech, normal gait. Normal sensory, motor exams PSYCH: Normal mood, normal affect. SKIN: Warm, Dry, normal turgor, no rashes or lesions noted. Course - Re-evaluation Re-evalutation: Laboratory 04/15/18 04/15/18 04/15/18 20:24 20:24 20:24 WBC 9.1 RBC 4.88 Hgb 14.9 Hct 44.0 MCV 90 MCH 30.5 MCHC 33.9 RDW 13.9 Plt Count 339 Seg Neutrophils % 66.3 Lymphocytes % 26.8 Monocytes % 4.6 Eosinophils % 1.9 Basophils % 0.4 Absolute Neutrophils 6.1 Absolute Lymphocytes 2.4 Absolute Monocytes 0.4 Absolute Eosinophils 0.2 Absolute Basophils 0.0 Sodium 141.1 Potassium 4.2 Chloride 101 Carbon Dioxide 28 Anion Gap 12 BUN 9 Creatinine 0.79 Est GFR ( Amer) > 60 Est GFR (Non-Af Amer) > 60 Glucose 88 Calcium 9.9 Total Bilirubin 0.4 Direct Bilirubin 0.2 Neonat Total Bilirubin Not Reportable Neonat Direct Bilirubin Not Reportable Neonat Indirect Bili Not Reportable AST 19 ALT 31 Alkaline Phosphatase 68 Total Protein 8.2 Albumin 4.5 Lipase 103.1 Urine Color YELLOW Urine Appearance CLOUDY Urine pH 5.0 Ur Specific [place] 1.010 Urine Protein NEGATIVE Urine Glucose (UA) NEGATIVE Urine Ketones TRACE H Urine Blood SMALL H Urine Nitrite NEGATIVE Urine Bilirubin NEGATIVE Urine Urobilinogen NEGATIVE Ur Leukocyte Esterase LARGE H Urine WBC (Auto) 50 Urine RBC (Auto) 24 Urine Bacteria (Auto) TRACE Squamous Epi Cells Auto 18 Urine Mucus (Auto) OCC Urine Ascorbic Acid NEGATIVE Urine HCG, Qual NEGATIVE Epi Cells (Wet Prep) Bacteria (Wet Prep) Trichomonas (Wet Prep) Vaginal WBC Vaginal RBC Vaginal Yeast Chlamydia DNA (PCR) N.gonorrhoeae DNA (PCR) 04/15/18 04/15/18 22:45 22:45 WBC RBC Hgb Hct MCV MCH MCHC RDW Plt Count Seg Neutrophils % Lymphocytes % Monocytes % Eosinophils % Basophils % Absolute Neutrophils Absolute Lymphocytes Absolute Monocytes Absolute Eosinophils Absolute Basophils Sodium Potassium Chloride Carbon Dioxide Anion Gap BUN Creatinine Est GFR ( Amer) Est GFR (Non-Af Amer) Glucose Calcium Total Bilirubin Direct Bilirubin Neonat Total Bilirubin Neonat Direct Bilirubin Neonat Indirect Bili AST ALT Alkaline Phosphatase Total Protein Albumin Lipase Urine Color Urine Appearance Urine pH Ur Specific [place] Urine Protein Urine Glucose (UA) Urine Ketones Urine Blood Urine Nitrite Urine Bilirubin Urine Urobilinogen Ur Leukocyte Esterase Urine WBC (Auto) Urine RBC (Auto) Urine Bacteria (Auto) Squamous Epi Cells Auto Urine Mucus (Auto) Urine Ascorbic Acid Urine HCG, Qual Epi Cells (Wet Prep) 3+ EPITHELIALS SEEN Bacteria (Wet Prep) 4+ BACTERIA SEEN Trichomonas (Wet Prep) TRICHOMONAS SEEN Vaginal WBC 2+ WBCS SEEN Vaginal RBC RARE RBCS SEEN Vaginal Yeast NO YEAST SEEN Chlamydia DNA (PCR) NOT DETECTED N.gonorrhoeae DNA (PCR) NOT DETECTED 33-year-old female with with reported history of epilepsy presents with complaint of abdominal pain, nausea and headache. Patient states abdominal pain started 3 days prior to arrival. It is located in the periumbilical epigastric region. She describes it as an intermittent tearing pain that is worse when she lays flat. SHe states when she lays flat her pain is suprapubic Patient has had associated nausea without vomiting. Her last bowel movement was yesterday and described as normal. She denies any black or bloody stools. Patient has had a decrease in appetite. She denies dysuria, hematuria, vaginal discharge. Last menstrual period was last week. She is currently sexually active. She denies any concern for STD. VSS upon arrival.patient does not appear toxic or dehydrated. Pain is reproducible when patient laid flat back. Bedside US of gallbladder performed by myself and showed no evidence of cholithiasis or cholecystitis. Patient found to have trichomonas, BV, UTI. treated with flagyl 2G in department. RX;s for bactrim givne to patient. discussed required need of abstinence with partner for one week after he has also been treated. 04/15/18 23:29 Patient declining treatment for gonorrhea and chlamydia. She was found to have Trichomonas and bacterial vaginosis. She did receive 2 g of Flagyl for this during her ED course. 04/17/18 19:24 - Vital Signs Vital signs: Temp Pulse Resp BP Pulse Ox 98.5 F 78 18 111/65 99 04/15/18 23:45 04/15/18 23:45 04/15/18 23:45 04/15/18 23:45 04/15/18 23:45 - Laboratory Result Diagrams: 04/15/18 20:24 04/15/18 20:24 Laboratory results interpreted by me: 04/15/18 20:24 Urine Ketones TRACE H Urine Blood SMALL H Ur Leukocyte Esterase LARGE H Procedures - Ultrasound/Bedside Ultrasound/Bedside Time completed: 22:39 - Bedside ultrasound of the gallbladder was performed. No evidence of cholelithiasis, cholecystitis. No gallbladder wall thickening. No pericholecystic fluid. Images attached to chart. Discharge - Discharge Clinical Impression: Nausea, Bacterial vaginosis, Trichomonas infection Abdominal pain Qualifiers: Abdominal location: epigastric Qualified Code(s): R10.13 - Epigastric pain Headache Qualifiers: Headache type: unspecified Headache chronicity pattern: unspecified pattern Intractability: not intractable Qualified Code(s): R51 - Headache Urinary tract infection Qualifiers: Urinary tract infection type: site unspecified Hematuria presence: without hematuria Qualified Code(s): N39.0 - Urinary tract infection, site not specified Condition: Good Disposition: HOME, SELF-CARE Instructions: Abdominal Pain ([facility]), Headache ([facility]), Trichomonas Infection ([facility]) , Trimethoprim-Sulfa ([facility]), Urinary Tract Infection ([facility]), Vaginosis, Bacterial ([facility]) Additional Instructions: Please do not have sexual intercourse for 1 week. Your partner needs to be treated for Trichomonas as well. You can not be sexually active with your partner for 1 week after he is treated. Prescriptions: Ibuprofen [Motrin 600 Mg Tablet] 600 mg PO TID #15 tablet Ondansetron [Zofran Odt 4 mg Tablet] 1 - 2 tab PO Q4H PRN #15 tab.rapdis PRN Reason: For Nausea/Vomiting Sulfamethoxazole/Trimethoprim [Bactrim Ds Tablet] 1 each PO BID #10 tablet
[2018-04-15] MEDS ORDERED: SULFAMETHOXAZOLE/TRIMETHOPRIM 800-160 MG TABLET PO ONE (22:46)
[2018-04-15 23:00] LABS: BACTERIA (WET MOUNT) 4+ BACTERIA SEEN; EPITHELIALS (WET MOUNT) 3+ EPITHELIALS SEEN; RBCS (WET MOUNT) RARE RBCS SEEN; T.VAGINALIS (WET MOUNT) TRICHOMONAS SEEN; WBCS (WET MOUNT) 2+ WBCS SEEN; YEAST (WET MOUNT) NO YEAST SEEN
[2018-04-15] MEDS ORDERED: METRONIDAZOLE 500 MG TABLET PO ONE (23:20)
[2018-04-15 23:54] VITALS: BP 111/65
[2018-04-16 00:25] LABS: CHLAM PCR NOT DETECTED (NOT DETECT); GON PCR NOT DETECTED (NOT DETECT)
== END 2018-04-15 23:45 | disposition home or self-care (01) ==
LOC: ER 18:08
DX: N39.0 Urinary tract infection, site not specified (principal); N76.0 Acute vaginitis; B96.89 Other specified bacterial agents as the cause of diseases classified elsewhere; A59.00 Urogenital trichomoniasis, unspecified; R11.0 Nausea; R10.13 Epigastric pain; R51 Headache; Z88.6 Allergy status to analgesic agent
CPT/HCPCS: 99284; 96374; 96375; 36415; 87210; 83690; 85025; 81025; 80053; 81001; 87491; 87591; J1200; J3010; J2765; J2405; J3490 ×2

== ENCOUNTER 2018-08-06 19:19 | Emergency (ER) | payer SELFPAY ==
[2018-08-06] MEDS ORDERED: ACETAMINOPHEN 325 MG TABLET PO ONE (20:55)
--- NOTE | 2018-08-06 21:27 | RADIOLOGY REPORT (SQ) ---
EXAM DESCRIPTION: XR HIP 2 OR MORE VIEWS COMPLETED DATE/TME: 08/06/2018 20:54 CLINICAL HISTORY: 33 years, Female, pain Findings: Bony alignment is anatomic. No fracture or dislocation. Soft tissues are unremarkable. IMPRESSION: No fracture.
--- NOTE | 2018-08-06 21:33 | ER Document Report ---
ED General - General Chief Complaint: Flu Symptoms Stated Complaint: HEADACHE/LEFT HIP PAIN Time Seen by Provider: 08/06/18 20:53 Notes: Patient is a 33-year-old female presents to the emergency department complaining of cough and congestion for the last 5 days. Patient also states she started with a sore throat today. Patient states she has generalized chest pain when she coughs and takes a deep breath. Patient's denying fever. Patient complains of generalized body aches for 2 days. Patient states she has had 4 episodes of posttussive vomiting. And has had 4 episodes of diarrhea over the last 3 days. Patient is denying any blood in her emesis or diarrhea. Patient states she has been "way more tired than normal." Patient states last menstrual period was 06/10/2018. Patient is complaining of some white "milky" vaginal discharge that is malodorous. Patient is denying dysuria. Patient states in May she fell onto her left hip and has had increased pain since fall. Patient denies any loss of bowel or bladder or any urinary retention. Patient also denies any numbness or tingling in any extremities. Past medical history: Seizures Medications: Patient is unknown of what medications she is supposed to be on. Allergies: Bananas, morphine TRAVEL OUTSIDE OF THE [place] IN LAST 30 DAYS: No - Related Data Allergies/Adverse Reactions: banana [Banana] Allergy (Intermediate, Verified 04/15/18 18:08) swelling morphine [Morphine] Allergy (Intermediate, Verified 04/15/18 18:08) Hives Past Medical History - General Information source: Patient - Social History Smoking Status: Never Smoker Frequency of alcohol use: None Drug Abuse: None Family History: Reviewed & Not Pertinent Patient has suicidal ideation: No Patient has homicidal ideation: No - Past Medical History Cardiac Medical History: Denies: Hx Hypertension Pulmonary Medical History: Reports: Hx Asthma Neurological Medical History: Reports: Hx Seizures - NEVER EVALUATED BY NEUROLOGY Endocrine Medical History: Denies: Hx Diabetes Mellitus Type 1, Hx Diabetes Mellitus Type 2 Renal/ Medical History: Reports: Hx Ectopic . Denies: Hx Kidney Stones, Hx Ovarian Cysts, Hx Peritoneal Dialysis, Hx Pelvic Inflammatory Disease , Hx Renal Insufficiency GI Medical History: Denies: Hx Gastritis, Hx Gastroesophageal Reflux Disease Musculoskeletal Medical History: Denies Hx Musculoskeletal Trauma Skin Medical History: Denies Hx Cellulitis, Denies Hx Eczema, Denies Hx MRSA, Denies Hx Psoriasis Past Surgical History: Reports: Hx Section - x1, Hx Gynecologic Surgery - left fallopion - Immunizations Hx Diphtheria, Pertussis, Tetanus Vaccination: Yes - 2010 Review of Systems - Review of Systems Constitutional: See HPI EENT: See HPI Cardiovascular: See HPI Respiratory: See HPI Gastrointestinal: See HPI Genitourinary: See HPI Female Genitourinary: See HPI Musculoskeletal: See HPI Skin: No symptoms reported Hematologic/Lymphatic: No symptoms reported Neurological/Psychological: No symptoms reported Physical Exam - Vital signs Vitals: Temp Pulse Resp BP Pulse Ox 98.8 F 85 16 107/59 L 98 08/06/18 19:25 08/06/18 19:25 08/06/18 19:25 08/06/18 19:25 08/06/18 19:25 - Notes Notes: GENERAL: Alert, interacts well. No acute distress. Well hydrated HEAD: Normocephalic, atraumatic. No frontal or maxillary sinus tenderness EYES: Pupils equal, round, and reactive to light. Extraocular movements intact. ENT: Oral mucosa moist, tongue midline. Nares patent, swollen turbinates bilaterally, TM's intact, nonerythematous, nonbulging. Pharynx mildly erythematous tonsils +2 bilaterally no exudate or palatal petechiae noted NECK: Full range of motion. Supple. Trachea midline. LUNGS: Clear to auscultation bilaterally, no wheezes, rales, or rhonchi. No respiratory distress. HEART: Regular rate and rhythm. No murmur ABDOMEN: Soft, non-tender. Non-distended. Bowel sounds present in all 4 quadrants. EXTREMITIES: Moves all 4 extremities spontaneously. No edema, normal radial and dorsalis pedis pulses bilaterally. No cyanosis. Generalized pain palpation to the left ASIS. 5 out of 5 strength all 4 extremities. BACK: no cervical, thoracic, lumbar midline tenderness. No saddle anesthesia, normal distal neurovascular exam. NEUROLOGICAL: Alert and oriented x3. Normal speech. cranial nerves II through XII grossly intact PSYCH: Normal affect, normal mood. SKIN: Warm, dry, normal turgor. No rashes or lesions noted. Course - Re-evaluation Re-evalutation: 08/06/18 22:01 When I went into the room to ask patient to get undressed from the bottom down in order to the pelvic exam patient states she needs to leave the emergency room. Patient states she got a phone call and needs to pick up attendant her daughter because her daughter cannot miss school tomorrow. I discussed with patient that the mono test and STD tests would not be resulted for another 45 minutes to an hour. Also we have no results of her urine for infection or dehydration. Patient states she cannot wait. I discussed with her prophylactic treatment of gonorrhea and chlamydia in case she does have those. Wishes to be prophylactically treated at this time. I talked to her about how mononucleosis is a viral infection and should she have it she is going to need plenty of sleep , stay well-hydrated and stay away from contact sports. Patient then left the emergency room AGAINST MEDICAL ADVICE. Told her she needs to follow-up with primary care provider or return to the emergency room as soon as possible. - Vital Signs Vital signs: Temp Pulse Resp BP Pulse Ox 98.8 F 85 16 107/59 L 98 08/06/18 19:25 08/06/18 19:25 08/06/18 19:25 08/06/18 19:25 08/06/18 19:25 Discharge - Discharge Clinical Impression: Left hip pain, Vaginal discharge Upper respiratory infection Qualifiers: URI type: unspecified viral URI Qualified Code(s): J06.9 - Acute upper respiratory infection, unspecified Diarrhea Qualifiers: Diarrhea type: unspecified type Qualified Code(s): R19.7 - Diarrhea, unspecified Condition: Fair Disposition: AGAINST MEDICAL ADVICE Instructions: Upper Respiratory Illness ([facility]), Viral Syndrome ([facility]), Diarrhea, Nonspecific ([facility]) Additional Instructions: You are leaving the emergency department AGAINST MEDICAL ADVICE. I recommended that he stay until he the rest of your testing has resulted. Please make sure you follow-up with your primary care provider or return to the emergency room for any other concerning symptoms. Prescriptions: Benzonatate [Tessalon Perles 100 mg Capsule] 100 mg PO Q8HP PRN #40 capsule PRN Reason: Mometasone Furoate [Nasonex] 1 spray NS Q12 #1 spray.pump Referrals: [facility] [Provider Group] - Follow up as needed
[2018-08-06] MEDS ORDERED: AZITHROMYCIN 250 MG TABLET PO ONE (22:00)
[2018-08-06] MEDS ORDERED: LIDOCAINE 1% INJ-PF (10 MG/ML) 30 ML SDV INJ ONE (22:00)
[2018-08-06] MEDS ORDERED: CEFTRIAXONE INJ 250 MG VIAL IM ONE (22:00)
[2018-08-06 22:15] VITALS: BP 99/64
[2018-08-07 00:14] LABS: APPEARANCE,URINE CLOUDY; BILIRUBIN,URINE NEGATIVE (NEGATIVE); COLOR,URINE YELLOW; GLUCOSE, URINE NEGATIVE (NEGATIVE); KETONES,URINE NEGATIVE (NEGATIVE); LEUKOCYTE ESTERASE,URINE LARGE (NEGATIVE); NITRITE,URINE NEGATIVE (NEGATIVE); PROTEIN,URINE NEGATIVE (NEGATIVE); URINE SPECIFIC GRAVITY 1.023; UROBILINOGEN,URINE NEGATIVE mg/dL (<2.0)
[2018-08-07 01:28] LABS: CHLAM PCR NOT DETECTED (NOT DETECT); GON PCR NOT DETECTED (NOT DETECT)
== END 2018-08-06 22:26 | disposition left against medical advice (07) ==
LOC: ER 19:19
DX: J06.9 Acute upper respiratory infection, unspecified (principal); B97.89 Other viral agents as the cause of diseases classified elsewhere; M25.552 Pain in left hip; W19.XXXA Unspecified fall, initial encounter; N89.8 Other specified noninflammatory disorders of vagina; R05 Cough; J02.9 Acute pharyngitis, unspecified; R07.1 Chest pain on breathing; R11.10 Vomiting, unspecified; R19.7 Diarrhea, unspecified; R53.83 Other fatigue; J45.909 Unspecified asthma, uncomplicated; Z88.5 Allergy status to narcotic agent; Z91.018 Allergy to other foods; Z53.29 Procedure and treatment not carried out because of patient's decision for other reasons
CPT/HCPCS: 99284; 96372; 87070; 87880; 81025; 81001; 87491; 87591; 73502; J3490; J0696

== ENCOUNTER 2019-01-22 10:32 | Emergency (ER) | payer SELFPAY ==
[2019-01-22] MEDS ORDERED: KETOROLAC TROMETHAMINE INJ/PF 30 MG/1 ML SDV IV ONE (11:09)
[2019-01-22] MEDS ORDERED: NORMAL SALINE 1000 ML 1,000 ML IV ONE (11:09)
[2019-01-22] MEDS ORDERED: ONDANSETRON HCL INJ/PF 4 MG/2 ML SDV IV ONE (11:09)
--- NOTE | 2019-01-22 11:11 | ER Document Report ---
ED Medical Screen (RME) - General Chief Complaint: Abdominal Pain Stated Complaint: ABDOMINAL PAIN Time Seen by Provider: 01/22/19 11:06 TRAVEL OUTSIDE OF THE [place] IN LAST 30 DAYS: No - HPI Notes: 01/22/19 11:10 Patient is a 33-year-old female who presents complaining of left flank pain that started suddenly today that radiates around her abdomen towards her groin with some burning and irritation when she is urinating. Patient states that the pain comes in waves. She does have associated nausea without vomiting. She is having normal bowel movements. No other concerns or complaints. Denies ALEXANDER, fever, neck pain, URI, CP, SOB, or rash. I have treated and performed a rapid initial assessment of this patient. A comprehensive ED assessment and evaluation of the patient, analysis of test results and completion of medical decision making process will be conducted by additional ED providers. PHYSICAL EXAMINATION: GENERAL: Well-appearing, well-nourished and in no acute distress. A&Ox4. Ans wers questions appropriately. LUNGS: Breath sounds clear to auscultation bilaterally and equal. No wheezes rales or rhonchi. HEART: Regular rate and rhythm without murmurs, rubs, gallops. ABDOMEN: Soft, nondistended abdomen. No guarding, no rebound. Normal bowel sounds present. + left CVA tenderness bilaterally. + left abd tenderness (cannot elicit thorough abd exam w/o bed, however). - Related Data Allergies/Adverse Reactions: banana [Banana] Allergy (Intermediate, Verified 01/22/19 10:34) swelling morphine [Morphine] Allergy (Intermediate, Verified 01/22/19 10:34) Hives Past Medical History - Social History Chew tobacco use (# tins/day): No Frequency of alcohol use: None Drug Abuse: None - Past Medical History Cardiac Medical History: Denies: Hx Hypertension Pulmonary Medical History: Reports: Hx Asthma Neurological Medical History: Reports: Hx Seizures - NEVER EVALUATED BY NEUROLOGY Endocrine Medical History: Denies: Hx Diabetes Mellitus Type 1, Hx Diabetes Mellitus Type 2 Renal/ Medical History: Reports: Hx Ectopic . Denies: Hx Kidney Stones, Hx Ovarian Cysts, Hx Peritoneal Dialysis, Hx Pelvic Inflammatory Disease, Hx Renal Insufficiency GI Medical History: Denies: Hx Gastritis, Hx Gastroesophageal Reflux Disease Musculoskeltal Medical History: Denies Hx Musculoskeletal Trauma Skin Medical History: Denies Hx Cellulitis, Denies Hx Eczema, Denies Hx MRSA, Denies Hx Psoriasis Past Surgical History: Reports: Hx Section - x1, Hx Gynecologic Surgery - left fallopion, etopic - Immunizations Hx Diphtheria, Pertussis, Tetanus Vaccination: Yes - 2010 Physical Exam - Vital signs Vitals: Temp Pulse Resp BP Pulse Ox 98.0 F 71 14 115/67 100 01/22/19 10:57 01/22/19 10:57 01/22/19 10:57 01/22/19 10:57 01/22/19 10:57 Course - Vital Signs Vital signs: Temp Pulse Resp BP Pulse Ox 98.0 F 71 14 115/67 100 01/22/19 10:57 01/22/19 10:57 01/22/19 10:57 01/22/19 10:57 01/22/19 10:57
[2019-01-22 11:34] LABS: ABSOLUTE BASOPHILS # (AUTO) 0.1 10^3/uL (0.0-0.2); ABSOLUTE EOSINOPHILS # (AUTO) 0.1 10^3/uL (0.0-0.6); ABSOLUTE LYMPHOCYTES (AUTO) 2.1 10^3/uL (0.5-4.7); ABSOLUTE MONOCYTES (AUTO) 0.5 10^3/uL (0.1-1.4); ABSOLUTE NEUT (AUTO) 6.4 10^3/uL (1.7-8.2); BASOPHILS % (AUTO) 0.7 % (0-2); EOSINOPHILS % (AUTO) 1.1 % (0-6); HEMATOCRIT 45.2 % (36.0-47.0); LYMPHOCYTES % (AUTO) 22.5 % (13-45); MEAN CORPUSCULAR HEMOGLOBIN 29.6 pg (27.0-33.4); MEAN CORPUSCULAR HGB CONC 33.1 g/dL (32.0-36.0); MEAN CORPUSCULAR VOLUME 90 fl (80-97); MONOCYTES % (AUTO) 5.6 % (3-13); PLATELET COUNT 325 10^3/uL (150-450); RED BLOOD COUNT 5.06 10^6/uL (3.72-5.28); SEGMENTED NEUTROPHILS % (AUTO) 70.1 % (42-78); TOTAL CELLS COUNTED % (AUTO) 100 %; WHITE BLOOD COUNT 9.2 10^3/uL (4.0-10.5)
[2019-01-22 11:59] LABS: ALANINE AMINOTRANSFERASE 36 U/L (9-52); ALBUMIN 4.7 g/dL (3.5-5.0); ALKALINE PHOSPHATASE 84 U/L (38-126); ANION GAP 11 (5-19); ASPARTATE AMINO TRANSFERASE 31 U/L (14-36); BILIRUBIN,DIRECT 0.3 mg/dL (0.0-0.4); BILIRUBIN,TOTAL 0.5 mg/dL (0.2-1.3); BLOOD UREA NITROGEN 14 mg/dL (7-20); CALCIUM 9.9 mg/dL (8.4-10.2); CARBON DIOXIDE 27 mmol/L (22-30); CHLORIDE 102 mmol/L (98-107); GLUCOSE 86 mg/dL (75-110); POTASSIUM 4.4 mmol/L (3.6-5.0); SODIUM 139.9 mmol/L (137-145); TOTAL PROTEIN 8.1 g/dL (6.3-8.2)
[2019-01-22 12:08] LABS: APPEARANCE,URINE CLOUDY; BILIRUBIN,URINE NEGATIVE (NEGATIVE); COLOR,URINE YELLOW; GLUCOSE, URINE NEGATIVE (NEGATIVE); KETONES,URINE TRACE mg/dL (NEGATIVE); LEUKOCYTE ESTERASE,URINE LARGE (NEGATIVE); NITRITE,URINE NEGATIVE (NEGATIVE); PROTEIN,URINE 30 mg/dL (NEGATIVE); URINE SPECIFIC GRAVITY 1.017; UROBILINOGEN,URINE NEGATIVE mg/dL (<2.0)
--- NOTE | 2019-01-22 12:14 | RADIOLOGY REPORT (SQ) ---
EXAM DESCRIPTION: CT ABD/PELVIS NO ORAL OR IV COMPLETED DATE/TIME: 01/22/2019 11:58 am REASON FOR STUDY: left flank/abd pain COMPARISON: None. TECHNIQUE: CT scan of the abdomen and pelvis performed without intravenous or oral contrast. Images reviewed with lung, soft tissue, and bone windows. Reconstructed coronal and sagittal MPR images revi ewed. All images stored on PACS. All CT scanners at this facility use dose modulation, iterative reconstruction, and/or weight based d osing when appropriate to reduce radiation dose to as low as reasonably achievable (ALARA). [facility]: Dose Right [facility]: CareDose [facility]: Dose Right [facility]: Teradose 4D [facility]: Kenzei RADIATION DOSE: CT Rad equipment meets quality standard of care and radiation dose reduction techniq ues were employed. CTDIvol: 11.9 mGy. DLP: 589 mGy-cm.mGy. LIMITATIONS: None. FINDINGS: LOWER CHEST: No significant findings. No nodules or infiltrates. NON-CONTRASTED LIVER, SPLEEN, ADRENALS: Evaluation limited by lack of IV contrast. No identified sign ificant masses. PANCREAS: No masses. No peripancreatic inflammatory changes. GALLBLADDER: No identified stones by CT criteria. No inflammatory changes to suggest cholecystitis. RIGHT KIDNEY AND URETER: No suspicious masses. Assessment limited by lack of IV contrast. No signif icant calcifications. No hydronephrosis or hydroureter. LEFT KIDNEY AND URETER: No suspicious masses. Assessment limited by lack of IV contrast. No signifi cant calcifications. No hydronephrosis or hydroureter. AORTA AND RETROPERITONEUM: No aneurysm. No retroperitoneal masses or adenopathy. BOWEL AND PERITONEAL CAVITY: No obvious masses or inflammatory changes. No free fluid. APPENDIX: Normal. PELVIS, BLADDER, AND ABDOMINAL WALL:No abnormal masses. No free fluid. Bladder normal. BONES: No significant findings. OTHER: No other significant finding. IMPRESSION: NO SIGNIFICANT OR ACUTE PROCESS IN THE ABDOMEN OR PELVIS. COMMENT: Quality ID # [id number]: Final reports with documentation of one or more dose reduction techniques (e.g., Automated exposure control, adjustment of the mA and/or kV according to patient size, use of iterative reconstruction technique) TECHNICAL DOCUMENTATION: JOB ID: [id number] [employer] A- All Rights Reserved Reading location - IP[facility]workstation name: [email or web address]
[2019-01-22] MEDS ORDERED: CEFTRIAXONE INJ 1000 MG VIAL IM ONE (12:19)
[2019-01-22] MEDS ORDERED: LIDOCAINE 1% INJ-PF (10 MG/ML) 30 ML SDV NEB ONE (12:19)
[2019-01-22] MEDS ORDERED: ONDANSETRON 4 MG TAB.RAPDIS PO ONE (12:19)
--- NOTE | 2019-01-22 14:33 | ER Document Report ---
ED General - General Chief Complaint: Abdominal Pain Stated Complaint: ABDOMINAL PAIN Time Seen by Provider: 01/22/19 11:06 Notes: Patient is a 33-year-old female that presents to the emergency department for chief complaint of left-sided abdominal pain and flank pain. Patient reports that she may have been having this pain over the past few days, but noticed it more today, she describes the pain as a 9 out of 10 describes as a sharp stabb ing pain in the left lower quadrant of her abdomen mainly. She has pain with urination as well and that is when it is at its worse. She denies any fevers, chills, night sweats, chest pain, she had some nausea but no vomiting. Denies any diarrhea. She denies prior history of kidney stones. She has not noticed blood in her urine either. She does not believe that she is . Past Medical History: Epilepsy Past Surgical History: Ectopic surgery, Social History: Denies tobacco use, admits to rare alcohol use, denies illicit drug use. Family History: Reviewed and noncontributory for presenting illness Allergies: Reviewed, see documented allergy list. REVIEW OF SYSTEMS: Other than noted above, the 12 point review of systems was reviewed with the patient and were negative, all pertinent findings are included in the HPI. PHYSICAL EXAMINATION: Vital signs reviewed, nursing noted reviewed. GENERAL: Well-appearing, well-nourished and in no acute distress. HEAD: Atraumatic, normocephalic. EYES: Eyes appear normal, extraocular movements intact, sclera anicteric, conjunctiva are normal. ENT: nares patent, oropharynx clear without exudates. Moist mucous membranes. NECK: Normal range of motion, supple without lymphadenopathy LUNGS: Breath sounds clear to auscultation bilaterally and equal. No wheezes rales or rhonchi. HEART: Regular rate and rhythm without murmurs ABDOMEN: Soft, left flank and left lower quadrant tenderness to palpation, normoactive bowel sounds. No rebound, guarding, or rigidity. No masses appreciated. EXTREMITIES: Nontender, good range of motion, no pitting or edema. NEUROLOGICAL: No focal neurological deficits. Moves all extremities spontaneously Motor and sensory grossly intact on exam. PSYCH: Normal mood, normal affect. SKIN: Warm, Dry, normal turgor, no rashes or lesions noted on exposed skin TRAVEL OUTSIDE OF THE [place] IN LAST 30 DAYS: No - Related Data Allergies/Adverse Reactions: banana [Banana] Allergy (Intermediate, Verified 01/22/19 10:34) swelling morphine [Morphine] Allergy (Intermediate, Verified 01/22/19 10:34) Hives Past Medical History - Social History Smoking Status: Unknown if Ever Smoked Chew tobacco use (# tins/day): No Frequency of alcohol use: None Drug Abuse: None Family History: Reviewed & Not Pertinent Patient has suicidal ideation: No Patient has homicidal ideation: No - Past Medical History Cardiac Medical History: Denies: Hx Hypertension Pulmonary Medical History: Reports: Hx Asthma Neurological Medical History: Reports: Hx Seizures - NEVER EVALUATED BY NEUROLOGY Endocrine Medical History: Denies: Hx Diabetes Mellitus Type 1, Hx Diabetes Mellitus Type 2 Renal/ Medical History: Reports: Hx Ectopic . Denies: Hx Kidney Stones, Hx Ovarian Cysts, Hx Peritoneal Dialysis, Hx Pelvic Inflammatory Disease, Hx Renal Insufficiency GI Medical History: Denies: Hx Gastritis, Hx Gastroesophageal Reflux Disease Musculoskeletal Medical History: Denies Hx Musculoskeletal Trauma Skin Medical History: Denies Hx Cellulitis, Denies Hx Eczema, Denies Hx MRSA, Denies Hx Psoriasis Past Surgical History: Reports: Hx Section - x1, Hx Gynecologic Surgery - left fallopion, etopic - Immunizations Hx Diphtheria, Pertussis, Tetanus Vaccination: Yes - 2010 Physical Exam - Vital signs Vitals: Temp Pulse Resp BP Pulse Ox 98.0 F 71 14 115/67 100 01/22/19 10:57 01/22/19 10:57 01/22/19 10:57 01/22/19 10:57 01/22/19 10:57 Course - Re-evaluation Re-evalutation: Patient seen and examined vital signs reviewed. Laboratory data and/or imaging were ordered as appropriate for the patient's presenting symptoms and complaint, with consideration of any critical or life threatening conditions that may be associated with their obtained history and exam as noted above. Patient was treated with Zofran ODT, Toradol IM, and given a dose of IM Rocephin Results were reviewed when available and demonstrated UA consistent with likely pyelonephritis, as there is white blood cell clumps in addition to leukocyte esterase, white blood cells in the urine. CT imaging was negative for any acute intra-abdominal process, there is no leukocytosis on the blood work. The patient was re-evaluated and was stable Evaluation was most consistent with left pyelonephritis, will discharge patient home with 7 days of antibiotics and advised to follow-up with her primary care. She is also given a prescription for Pyridium. Results were discussed with the patient at this point, after careful consideration I feel that that patient can be discharged from the emergency department, the patient was educated treatments and reasons to return to the emergency department based on their presumed diagnosis as noted above, they were advised to followup with a primary care physician in 2-3 days. Patient was agreeable to plan of care. *Note is created using voice recognition software and may contain spelling, syntax or grammatical errors. Laboratory 01/22/19 01/22/19 01/22/19 11:20 11:20 11:20 WBC 9.2 RBC 5.06 Hgb 15.0 Hct 45.2 MCV 90 MCH 29.6 MCHC 33.1 RDW 14.0 Plt Count 325 Seg Neutrophils % 70.1 Lymphocytes % 22.5 Monocytes % 5.6 Eosinophils % 1.1 Basophils % 0.7 Absolute Neutrophils 6.4 Absolute Lymphocytes 2.1 Absolute Monocytes 0.5 Absolute Eosinophils 0.1 Absolute Basophils 0.1 Sodium 139.9 Potassium 4.4 Chloride 102 Carbon Dioxide 27 Anion Gap 11 BUN 14 Creatinine 0.63 Est GFR ( Amer) > 60 Est GFR (Non-Af Amer) > 60 Glucose 86 Calcium 9.9 Total Bilirubin 0.5 Direct Bilirubin 0.3 Neonat Total Bilirubin Not Reportable Neonat Direct Bilirubin Not Reportable Neonat Indirect Bili Not Reportable AST 31 ALT 36 Alkaline Phosphatase 84 Total Protein 8.1 Albumin 4.7 Urine Color YELLOW Urine Appearance CLOUDY Urine pH 6.0 Ur Specific [place] 1.017 Urine Protein 30 H Urine Glucose (UA) NEGATIVE Urine Ketones TRACE H Urine Blood LARGE H Urine Nitrite NEGATIVE Urine Bilirubin NEGATIVE Urine Urobilinogen NEGATIVE Ur Leukocyte Esterase LARGE H Urine WBC (Auto) >182 Urine RBC (Auto) 70 Urine WBC Clumps MOD Squamous Epi Cells Auto 7 Urine Mucus (Auto) RARE Urine Ascorbic Acid NEGATIVE Urine HCG, Qual NEGATIVE Abdomen/Pelvis CT 01/22/19 11:09 IMPRESSION: NO SIGNIFICANT OR ACUTE PROCESS IN THE ABDOMEN OR PELVIS. - Vital Signs Vital signs: Temp Pulse Resp BP Pulse Ox 98.0 F 71 14 115/67 100 01/22/19 10:57 01/22/19 10:57 01/22/19 10:57 01/22/19 10:57 01/22/19 10:57 - Laboratory Result Diagrams: 01/22/19 11:20 01/22/19 11:20 Laboratory results interpreted by me: 01/22/19 11:20 Urine Protein 30 H Urine Ketones TRACE H Urine Blood LARGE H Ur Leukocyte Esterase LARGE H Discharge - Discharge Clinical Impression: Pyelonephritis Condition: Stable Disposition: HOME, SELF-CARE Instructions: Pyelonephritis (OM) Additional Instructions: Please complete the entire course of antibiotics as prescribed, please follow-up with a primary care physician. If your symptoms worsen or do not improve, do not hesitate to return to the emergency department. Prescriptions: Cephalexin Monohydrate [Keflex 500 mg Capsule] 500 mg PO TID 7 Days #21 capsule Phenazopyridine HCl [Pyridium 200 mg Tablet] 200 mg PO TID #15 tablet Referrals: [facility] [Provider Group] - Follow up in 3-5 days
[2019-01-22 15:27] VITALS: BP 116/68
== END 2019-01-22 15:28 | disposition home or self-care (01) ==
LOC: ER 10:32
DX: N12 Tubulo-interstitial nephritis, not specified as acute or chronic (principal); J45.909 Unspecified asthma, uncomplicated; Z91.018 Allergy to other foods; Z88.5 Allergy status to narcotic agent
CPT/HCPCS: 99284; 96372; 36415; 87086; 85025; 81025; 80053; 81001; 74176; S0119; J3490; J0696

== ENCOUNTER 2019-04-07 02:21 | Emergency (ER) | payer SELFPAY ==
[2019-04-07] MEDS ORDERED: METHOCARBAMOL INJ/PF 1000 MG/10 ML SDV IV ONE (07:41)
[2019-04-07] MEDS ORDERED: KETOROLAC TROMETHAMINE INJ/PF 30 MG/1 ML SDV IV ONE (07:41)
[2019-04-07 07:44] LABS: APPEARANCE,URINE SLIGHTLY-CLOUDY; BILIRUBIN,URINE NEGATIVE (NEGATIVE); COLOR,URINE YELLOW; GLUCOSE, URINE NEGATIVE (NEGATIVE); KETONES,URINE 20 mg/dL (NEGATIVE); LEUKOCYTE ESTERASE,URINE TRACE (NEGATIVE); NITRITE,URINE NEGATIVE (NEGATIVE); PROTEIN,URINE NEGATIVE (NEGATIVE); URINE SPECIFIC GRAVITY 1.024; UROBILINOGEN,URINE NEGATIVE mg/dL (<2.0)
[2019-04-07 08:13] LABS: ABSOLUTE BASOPHILS # (AUTO) 0.1 10^3/uL (0.0-0.2); ABSOLUTE LYMPHOCYTES (AUTO) 1.4 10^3/uL (0.5-4.7); ABSOLUTE MONOCYTES (AUTO) 0.4 10^3/uL (0.1-1.4); ABSOLUTE NEUT (AUTO) 5.5 10^3/uL (1.7-8.2); BASOPHILS % (AUTO) 0.7 % (0-2); EOSINOPHILS % (AUTO) 0.2 % (0-6); HEMATOCRIT 39.8 % (36.0-47.0); HEMOGLOBIN 13.2 g/dL (12.0-15.5); LYMPHOCYTES % (AUTO) 19.6 % (13-45); MEAN CORPUSCULAR HEMOGLOBIN 30.1 pg (27.0-33.4); MEAN CORPUSCULAR HGB CONC 33.2 g/dL (32.0-36.0); MEAN CORPUSCULAR VOLUME 90 fl (80-97); MONOCYTES % (AUTO) 5.5 % (3-13); PLATELET COUNT 270 10^3/uL (150-450); TOTAL CELLS COUNTED % (AUTO) 100 %; WHITE BLOOD COUNT 7.4 10^3/uL (4.0-10.5)
[2019-04-07 08:31] LABS: ALKALINE PHOSPHATASE 59 U/L (38-126); ANION GAP 7 (5-19); ASPARTATE AMINO TRANSFERASE 26 U/L (14-36); BILIRUBIN,DIRECT 0.2 mg/dL (0.0-0.4); BILIRUBIN,TOTAL 0.3 mg/dL (0.2-1.3); BLOOD UREA NITROGEN 8 mg/dL (7-20); CALCIUM 9.1 mg/dL (8.4-10.2); CARBON DIOXIDE 23 mmol/L (22-30); CHLORIDE 109 mmol/L (98-107); CREATINE KINASE 150 U/L (30-135); GLUCOSE 97 mg/dL (75-110); TOTAL PROTEIN 7.1 g/dL (6.3-8.2)
--- NOTE | 2019-04-07 09:47 | ER Document Report ---
ED General - General Chief Complaint: Flank Pain Stated Complaint: LEFT NECK,ARM,FLANK,LEG PAIN,NAUSEA,VOMITTING Time Seen by Provider: 04/07/19 06:35 Mode of Arrival: Medic Information source: Patient, Emergency Med Personnel, [facility] Records Notes: This 34-year-old female patient comes emergency room by 911 complaining of left hip and back pain. She states she was sitting on the floor about 12:30 AM today when she had sudden onset of a hot flushed feeling started drinking water and vomiting. Then she developed the back and hip pain. She did receive fentanyl 125 mcg from EMS. She was seen here on 01/22/2019 with left pyelonephritis with a negative CT scan of the abdomen pelvis. TRAVEL OUTSIDE OF THE [place] IN LAST 30 DAYS: No - Related Data Allergies/Adverse Reactions: banana [Banana] Allergy (Intermediate, Verified 01/22/19 10:34) swelling morphine [Morphine] Allergy (Intermediate, Verified 01/22/19 10:34) Hives Past Medical History - General Information source: Patient, Emergency Med Personnel, [facility] Records - Social History Smoking Status: Never Smoker Cigarette use (# per day): No Chew tobacco use (# tins/day): No Smoking Education Provided: No Frequency of alcohol use: Occasional Drug Abuse: None Lives with: Family Family History: Reviewed & Not Pertinent Patient has suicidal ideation: No Patient has homicidal ideation: No Pulmonary Medical History: Reports: Hx Asthma Neurological Medical History: Reports: Hx Seizures - NEVER EVALUATED BY NEUROLOGY, no medication Renal/ Medical History: Reports: Hx Ectopic Past Surgical History: Reports: Hx Section, Hx Gynecologic Surgery - left fallopion, etopic - Immunizations Hx Diphtheria, Pertussis, Tetanus Vaccination: Yes - 2010 Review of Systems - Review of Systems Constitutional: No symptoms reported EENT: No symptoms reported Cardiovascular: No symptoms reported Respiratory: No symptoms reported Gastrointestinal: No symptoms reported Genitourinary: No symptoms reported Female Genitourinary: No symptoms reported Musculoskeletal: See HPI Skin: No symptoms reported Hematologic/Lymphatic: No symptoms reported Neurological/Psychological: No symptoms reported Physical Exam - Vital signs Vitals: Temp Pulse Resp BP Pulse Ox 97.4 F 59 L 16 93/57 L 97 04/07/19 02:47 04/07/19 02:47 04/07/19 02:47 04/07/19 02:47 04/07/19 02:47 Interpretation: Normal - General General appearance: Appears well, Alert In distress: None - HEENT Head: Normocephalic, Atraumatic Eyes: Normal Pupils: PERRL - Respiratory Respiratory status: No respiratory distress Breath sounds: Normal - Cardiovascular Rhythm: Regular Heart sounds: Normal auscultation Murmur: No - Abdominal Inspection: Obese Bowel sounds: Normal Tenderness: Nontender - Back Back: Tender - Left lumbar sacral back is very tender to light palpation - Extremities General upper extremity: Normal inspection General lower extremity: Other - Left lateral hip and proximal thigh are very tender to light palpation - Neurological Neuro grossly intact: Yes - Psychological Associated symptoms: Normal affect, Normal mood Course - Re-evaluation Re-evalutation: 04/07/19 09:43 Patient was sleeping soundly and snoring after the Robaxin and Toradol. - Vital Signs Vital signs: Temp Pulse Resp BP Pulse Ox 98.0 F 75 20 96/57 L 100 04/07/19 10:01 04/07/19 10:01 04/07/19 10:01 04/07/19 10:01 04/07/19 04:12 - Laboratory Result Diagrams: 04/07/19 07:56 04/07/19 07:56 Laboratory results interpreted by me: 04/07/19 04/07/19 06:30 07:56 Chloride 109 H Creatine Kinase 150 H Urine Ketones 20 H Ur Leukocyte Esterase TRACE H Urine Ascorbic Acid 40 H Discharge - Discharge Clinical Impression: Flank pain Back pain Qualifiers: Back pain location: low back pain Chronicity: acute Back pain laterality: left Sciatica presence: without sciatica Qualified Code(s): M54.5 - Low back pain Hip pain Qualifiers: Laterality: left Qualified Code(s): M25.552 - Pain in left hip Condition: Stable Disposition: HOME, SELF-CARE Additional Instructions: Muscle Strain: You have strained the muscles in your left low back, buttock and thigh region. This often occurs with strenuous exertion, or during an injury that thompson ddenly stretches the muscle. The seriousness of a strain varies. Some strains heal within days, others cause problems for months. X-rays cannot show a muscle strain. X-rays are taken only if symptoms suggest that a fracture could be present. The usual treatment of a muscle strain is rest and ice packs. Sometimes, a sling, splint, or crutches may be necessary to rest the muscle. The muscle can be used again once pain subsides. Severe strains require a special exercise and stretching program to prevent permanent stiffness and disability. Your doctor will advise you if this will be necessary. Call the doctor immediately if pain or swelling becomes severe, or if numbness or discoloration develop. Take the muscle relaxers as prescribed. Take ibuprofen 800 mg every 8 hours for the next few days. Rest and avoid activity that makes the pain worse. Follow-up with a local primary care provider if not improving. RETURN TO THE EMERGENCY ROOM IF ANY NEW OR WORSENING SYMPTOMS. Prescriptions: Methocarbamol [Robaxin 750 mg Tablet] 750 mg PO ASDIR PRN #40 tablet PRN Reason:
[2019-04-07 10:03] VITALS: BP 96/57
== END 2019-04-07 10:06 | disposition home or self-care (01) ==
LOC: ER 02:21
DX: M54.5 Low back pain (principal); M54.2 Cervicalgia; M25.552 Pain in left hip; R10.9 Unspecified abdominal pain; R11.2 Nausea with vomiting, unspecified; Z88.6 Allergy status to analgesic agent
CPT/HCPCS: 36415; 82550; 84703; 85025; 80053; 81001; J2800; J1885

== ENCOUNTER 2019-09-09 21:59 | Emergency (ER) | payer SELFPAY ==
[2019-09-09 22:29] LABS: ABSOLUTE BASOPHILS # (AUTO) 0.1 10^3/uL (0.0-0.2); ABSOLUTE EOSINOPHILS # (AUTO) 0.1 10^3/uL (0.0-0.6); ABSOLUTE LYMPHOCYTES (AUTO) 2.2 10^3/uL (0.5-4.7); ABSOLUTE MONOCYTES (AUTO) 0.4 10^3/uL (0.1-1.4); ABSOLUTE NEUT (AUTO) 7.3 10^3/uL (1.7-8.2); BASOPHILS % (AUTO) 0.8 % (0-2); EOSINOPHILS % (AUTO) 0.6 % (0-6); HEMATOCRIT 45.2 % (36.0-47.0); HEMOGLOBIN 15.1 g/dL (12.0-15.5); LYMPHOCYTES % (AUTO) 21.5 % (13-45); MEAN CORPUSCULAR HEMOGLOBIN 30.1 pg (27.0-33.4); MEAN CORPUSCULAR HGB CONC 33.3 g/dL (32.0-36.0); MEAN CORPUSCULAR VOLUME 90 fl (80-97); MONOCYTES % (AUTO) 4.2 % (3-13); PLATELET COUNT 344 10^3/uL (150-450); RED BLOOD COUNT 5.01 10^6/uL (3.72-5.28); RED CELL DISTRIBUTION WIDTH 14.4 % (11.5-14.0); SEGMENTED NEUTROPHILS % (AUTO) 72.9 % (42-78); TOTAL CELLS COUNTED % (AUTO) 100 %; WHITE BLOOD COUNT 10.1 10^3/uL (4.0-10.5)
[2019-09-09] MEDS ORDERED: NORMAL SALINE 1000 ML 1,000 ML IV ONE (22:30)
[2019-09-09] MEDS ORDERED: LEVETIRACETAM 1000 MG/NACL-ISO 1,000 MG/100 ML RTUPB IV ONE (22:30)
[2019-09-09] MEDS ORDERED: LORAZEPAM INJ 2 MG/1 ML VIAL IV ONE (22:31)
--- NOTE | 2019-09-09 22:38 | ER Document Report ---
ED General - General Chief Complaint: Seizure Stated Complaint: SEIZURE TRAVEL OUTSIDE OF THE [place] IN LAST 30 DAYS: No - HPI Notes: Ms. Maya is a 34-year-old female with a chief complaint of seizure. Longstanding history of tonic-clonic seizures. She is supposed to be taking Keppra. She is not taken any of this in over 2 weeks. Roommate says she was sitting on a couch about 30 minutes ago when she had 2 [id number] seizures described as generalized seizures. The first 1 lasted about 5 minutes. She did not wake up completely after that. She had a second seizure lasting about 2 minutes. There was no fall or injury but following the seizure she appeared to be in a postictal state and complained of right hip discomfort. Otherwise healthy. Occasional social alcohol consumption. Denies drug abuse. Allergic to bananas and morphine. Takes no medications other than Keppra. Last menses 2 weeks ago described as normal. - Related Data Allergies/Adverse Reactions: banana [Banana] Allergy (Intermediate, Verified 01/22/19 10:34) swelling morphine [Morphine] Allergy (Intermediate, Verified 01/22/19 10:34) Hives Past Medical History - General Information source: Patient, Relative, Friend - Social History Smoking Status: Unknown if Ever Smoked Frequency of alcohol use: Occasional Drug Abuse: None Family History: Reviewed & Not Pertinent - Past Medical History Cardiac Medical History: Denies: Hx Hypertension Pulmonary Medical History: Reports: Hx Asthma Neurological Medical History: Reports: Hx Seizures - NEVER EVALUATED BY NEUROLOGY, no medication Endocrine Medical History: Denies: Hx Diabetes Mellitus Type 1, Hx Diabetes Mellitus Type 2 Renal/ Medical History: Reports: Hx Ectopic . Denies: Hx Kidney Stones, Hx Ovarian Cysts, Hx Peritoneal Dialysis, Hx Pelvic Inflammatory Disease, Hx Renal Insufficiency GI Medical History: Denies: Hx Gastritis, Hx Gastroesophageal Reflux Disease Musculoskeletal Medical History: Denies Hx Musculoskeletal Trauma Skin Medical History: Denies Hx Cellulitis, Denies Hx Eczema, Denies Hx MRSA, Denies Hx Psoriasis Past Surgical History: Reports: Hx Section, Hx Gynecologic Surgery - left fallopion, etopic - Immunizations Hx Diphtheria, Pertussis, Tetanus Vaccination: Yes - 2010 Review of Systems - Review of Systems Notes: Constitutional: Negative for fever. HENT: Negative for sore throat. Eyes: Negative for visual changes. Cardiovascular: Negative for chest pain. Respiratory: Negative for shortness of breath. Gastrointestinal: Negative for abdominal pain, vomiting or diarrhea. Genitourinary: Negative for dysuria. Musculoskeletal: As per HPI. Skin: Negative for rash. Neurological: As per HPI. 10 point ROS negative except as marked above and in HPI. Physical Exam - Vital signs Vitals: Resp Pulse Ox 9 L 100 09/09/19 22:08 09/09/19 22:08 - Notes Notes: GENERAL: Female patient appearing approximately stated age who is currently mild ly postictal. SKIN: Good turgor no rashes. HEAD: Normocephalic atraumatic. EYES: PERRLA. EOMI. Conjunctivae and sclerae clear. EARS: CANALS AND TMS CLEAR. NOSE: CLEAR. MOUTH: Moist mucosa. Good dentition. No stridor or edema. No drooling. NECK: Supple. No masses or thyromegaly. No adenopathy. Carotids 2+ without bruits. No JVD. BACK: Symmetrical without tenderness. CHEST: Respirations unlabored. Breath sounds clear and symmetrical. HEART: Regular rhythm. No murmur gallop or rub. ABDOMEN: Soft nontender without masses, organomegaly or rebound. Bowel sounds normally active. No bruits. GENITALIA: Deferred. EXTREMITIES: Mild tenderness over right hip laterally with no crepitus or gross deformity and no shortening or abnormal rotation of the extremity. No edema. No calf tenderness. Cap refill less than 1.5 seconds. Dorsalis pedis and posterior tibial pulses 3+ and symmetrical. NEUROLOGICAL: GCS 13 with subtractions for eyes initially closed and mild disorientation. Speech is slow and patient appears very sedated. Cranial nerves II through XII intact. Sensorimotor and cerebellar normal. 2+ ankle clonus bilaterally. PSYCHIATRIC: Appropriate affect. Course - Re-evaluation Re-evalutation: 09/09/19 22:38 Appears postictal at this time. I reviewed past records and she has been here numerous times under similar circumstances. I am going to get a noncontrast head CT and go ahead and give her some IV Ativan and IV Keppra. We will keep her on monitor at this time. Labs to include test, CBC, multi-Kelsey profile, serum magnesium, urinalysis and urine drug screen. 09/09/19 23:36 I was called back in the room for possible recurrent seizure. Patient was fluttering her eyelids. When I spoke to her loudly she opened eyes widely she follow commands and squeeze my fingers with both hands. I interpret this as a possible pseudoseizure at this time. We are still awaiting results of CT and labs. Nurses had still not obtained a urine specimen so I asked him to do in and out cath to send a urine drug screen on this patient. 09/09/19 23:[address], chest x-ray and pelvis x-ray all normal per radiology. Blood alcohol was less than 10. Chemistry profile and CBC are normal. test is negative. Urine tox screen remains pending. 09/10/19 01:08 Alcohol was less than 10 and tox screen is negative. Patient is still sleepy from Ativan she received earlier. Her ankle clonus is resolved. I will give her another liter of fluid and assure myself that she can ambulate and is fully recovered from the Ativan prior to discharge. 09/10/19 03:40 Patient is now alert and oriented x3 and able to ambulate without assistance. Stable for outpatient follow-up. I written her a new prescription for Keppra and emphasized the importance of taking the medication as prescribed. She is to follow-up with primary care physician. I cautioned her that she should not drive an automobile or operate machinery until she has been reevaluated by primary care physician. - Vital Signs Vital signs: Temp Pulse Resp BP Pulse Ox 15 98/48 L 100 09/10/19 00:02 09/10/19 00:02 09/10/19 00:02 - Laboratory Result Diagrams: 09/09/19 22:15 09/09/19 22:15 Laboratory results interpreted by me: 09/09/19 09/09/19 22:15 22:15 RDW 14.4 H Total Protein 9.3 H - Diagnostic Test Radiology reviewed: Reports reviewed Radiology results interpreted by me: 09/10/19 03:[address] normal per radiologist. - EKG Interpretation by Me Additional EKG results interpreted by me: 09/10/19 01:08 EKG from 2216 hrs. on 09/09/2019 was reviewed contemporaneously by me. Normal sinus rhythm. Rate 72. Normal axis. No acute ST/T wave changes. Discharge - Discharge Clinical Impression: Seizure, Noncompliance Condition: Stable Disposition: HOME, SELF-CARE Additional Instructions: Seizure, Known Epileptic You have had a seizure. Seizures may "break through" in an epileptic due to stress of infection or injury, a change in blood chemistry, or drug and alcohol use. Another common cause is failure to take medication as prescribed. Your doctor has evaluated your situation for the likely cause of this seizure. It is important that you follow his advice concerning any medication c hanges and follow-up care. Further testing of anti-seizure medication levels in your blood may be necessary. If you have a courtesy car driver's license, it's important that you DO NOT DRIVE until given permission by your physician. This seizure must be reported to the courtesy car driver's license bureau. Call the doctor or return if seizures recur, or if new or unusual symptoms arise -- such as severe headache, confusion, excessive sleepiness, local weakness or numbness, neck stiffness, or fever. Return here as needed for new or worsening symptoms: Pain that is worsening or unimproved Uncontrolled vomiting High fever or shaking chills Overall worsening Prescriptions: Levetiracetam [Keppra 500 mg Tablet] 500 mg PO Q12 #60 tablet Referrals: [facility] [Provider Group] - Follow up as needed
[2019-09-09 22:46] LABS: ALKALINE PHOSPHATASE 96 U/L (38-126); ANION GAP 12 (5-19); ASPARTATE AMINO TRANSFERASE 29 U/L (14-36); BILIRUBIN,DIRECT 0.2 mg/dL (0.0-0.4); BILIRUBIN,TOTAL 0.4 mg/dL (0.2-1.3); BLOOD UREA NITROGEN 12 mg/dL (7-20); CALCIUM 9.7 mg/dL (8.4-10.2); CARBON DIOXIDE 27 mmol/L (22-30); CHLORIDE 101 mmol/L (98-107); GLUCOSE 95 mg/dL (75-110); TOTAL PROTEIN 9.3 g/dL (6.3-8.2)
[2019-09-09 22:47] LABS: ALCOHOL < 10 mg/dL (NONE DETECTED)
--- NOTE | 2019-09-09 23:17 | RADIOLOGY REPORT (SQ) ---
EXAM DESCRIPTION: XR PELVIS 1-2 VIEWS COMPLETED DATE/TME: 09/09/2019 22:29 CLINICAL HISTORY: 34 years, Female, trauma COMPARISON: None. NUMBER OF VIEWS: Single TECHNIQUE: LIMITATIONS: None. FINDINGS: No acute displaced fracture the pelvis. Alignment is anatomic. Surrounding soft tissues demonstrate moderate hard stool within the colon IMPRESSION: No acute displaced fracture of the pelvis copyright 2010 [employer]- All Rights Reserved
--- NOTE | 2019-09-09 23:17 | RADIOLOGY REPORT (SQ) ---
EXAM DESCRIPTION: XR CHEST 1 VIEW COMPLETED DATE/TME: 09/09/2019 22:29 CLINICAL HISTORY: 34 years, Female, seizure COMPARISON: None. NUMBER OF VIEWS: Single TECHNIQUE: LIMITATIONS: None. FINDINGS: Cardiomediastinal silhouette is of normal size. Lungs grossly clear. No effusion. No pneumothorax IMPRESSION: No active intrathoracic disease. No adverse change copyright 2010 [employer]- All Rights Reserved
--- NOTE | 2019-09-09 23:19 | RADIOLOGY REPORT (SQ) ---
EXAM DESCRIPTION: CT HEAD WITHOUT IV CONTRAST COMPLETED DATE/TME: 09/09/2019 22:28 CLINICAL HISTORY: 34 years, Female, seizure COMPARISON: None. TECHNIQUE: Images stored on PACS. All CT scanners at this facility use dose modulation, iterative reconstruction, and/or weight based dosing when appropriate to reduce radiation dose to as low as reasonably achievable (ALARA). [facility]: Dose Right [facility]: CareDose [facility]: Dose Right [facility]: Teradose 4D [facility]: [employer] LIMITATIONS: None. FINDINGS: Calvillo-white differentiation is normal. The ventricles and extracerebral spaces are within normal limits for age. No evidence of mass lesion, possible mass effect or intracranial hemorrhage. The visualized paranasal sinuses are clear. Mastoid air cells are clear. The orbits are unremarkable.. IMPRESSION: No acute intracranial process is identified. The cause of the patient's seizure is not identified on this examination. TECHNICAL DOCUMENTATION: Quality ID # [id number]: Final reports with documentation of one or more dose reduction techniques (e.g., Automated exposure control, adjustment of the mA and/or kV according to patient size, use of iterative reconstruction technique) copyright 2011 [employer]- All Rights Reserved
--- NOTE | 2019-09-09 23:25 | EKG REPORT ---
SEVERITY:- NORMAL ECG - SINUS RHYTHM : Confirmed by: Tracie Ford MD 09-Sep-2019 23:24:30
[2019-09-10 00:23] LABS: APPEARANCE,URINE SLIGHTLY-CLOUDY; BILIRUBIN,URINE NEGATIVE (NEGATIVE); COLOR,URINE YELLOW; GLUCOSE, URINE NEGATIVE (NEGATIVE); KETONES,URINE NEGATIVE (NEGATIVE); LEUKOCYTE ESTERASE,URINE NEGATIVE (NEGATIVE); NITRITE,URINE NEGATIVE (NEGATIVE); PROTEIN,URINE NEGATIVE (NEGATIVE); URINE SPECIFIC GRAVITY 1.015; UROBILINOGEN,URINE NEGATIVE mg/dL (<2.0)
[2019-09-10 00:38] LABS: URINE AMPHETAMINES SCREEN NEGATIVE; URINE BARBITURATES SCREEN NEGATIVE; URINE BENZODIAZEPINES SCREEN NEGATIVE; URINE COCAINE SCREEN NEGATIVE; URINE MARIJUANA (THC) SCREEN NEGATIVE; URINE METHADONE SCREEN NEGATIVE; URINE PHENCYCLIDINE SCREEN NEGATIVE
[2019-09-10] MEDS ORDERED: NORMAL SALINE 1000 ML 1,000 ML IV ONE (01:09)
[2019-09-10 04:02] VITALS: BP 102/78
== END 2019-09-10 03:57 | disposition home or self-care (01) ==
LOC: ER 21:59
DX: R56.9 Unspecified convulsions (principal); T42.6X6A Underdosing of other antiepileptic and sedative-hypnotic drugs, initial encounter; Z91.14 Patient's other noncompliance with medication regimen; J45.909 Unspecified asthma, uncomplicated; Z91.018 Allergy to other foods; Z88.6 Allergy status to analgesic agent; Z88.5 Allergy status to narcotic agent
CPT/HCPCS: 93005; 99284; 96361; 96375; 96365; 36415; 82962; 80307 ×2; 83735; 84703; 85025; 80053; 81001; 71045; 72170; 70450; 93010; J2060; J7030 ×2; J1953

== ENCOUNTER 2020-01-27 07:04 | Emergency (ER) | payer SELFPAY ==
[2020-01-27] MEDS ORDERED: LEVETIRACETAM 500 MG TABLET PO ONE (08:08)
--- NOTE | 2020-01-27 08:24 | ER Document Report ---
Entered by ADENIKE MANTILLA SCRIBE 01/27/20 0808 Acting as scribe for:WM WEBER MD ED General - General Chief Complaint: Fall Stated Complaint: FALL/HEAD PAIN Time Seen by Provider: 01/27/20 07:53 Primary Care Provider: [facility] [Provider Group] - Follow up as needed [facility] [Outside] - Follow up as needed Information source: Patient Notes: This 34-year-old female presents to the emergency department after a fall due to a seizure yesterday and last night. Patient explains that yesterday, [place]. Patient reports injuring her right lip but states that her lip feels better now. Patient states that when she arrived home last night, she had another seizure where she fell and hit her head above her right eyebrow. Patient states that her head is feeling better now. Patient reports a headache prior to her seizures. Patient denies biting her tongue during her seizures yesterday but states that she did bite her tongue during a seizure last week. Patient reports having 4 seizures in the last week. Patient states that she iced her forehead after the fall. Patient reports that she was diagnosed with new onset seizures in 2011. TRAVEL OUTSIDE OF THE [place] IN LAST 30 DAYS: No - Related Data Allergies/Adverse Reactions: banana [Banana] Allergy (Intermediate, Verified 01/22/19 10:34) swelling morphine [Morphine] Allergy (Intermediate, Verified 01/22/19 10:34) Hives Past Medical History - General Information source: Patient - Social History Smoking Status: Never Smoker Cigarette use (# per day): No Chew tobacco use (# tins/day): No Frequency of alcohol use: None Drug Abuse: None Family History: Reviewed & Not Pertinent Patient has homicidal ideation: No Pulmonary Medical History: Reports: Hx Asthma Neurological Medical History: Reports: Hx Seizures - NEVER EVALUATED BY NEUROLOGY, no medication Renal/ Medical History: Reports: Hx Ectopic Past Surgical History: Reports: Hx Section, Hx Gynecologic Surgery - left fallopion, etopic - Immunizations Hx Diphtheria, Pertussis, Tetanus Vaccination: Yes - 2010 Review of Systems - Review of Systems Constitutional: See HPI. denies: Fever EENT: No symptoms reported Cardiovascular: No symptoms reported Respiratory: No symptoms reported Gastrointestinal: No symptoms reported Genitourinary: No symptoms reported Female Genitourinary: No symptoms reported Musculoskeletal: See HPI, Other - Lip contusion and Head contusion Skin: No symptoms reported Hematologic/Lymphatic: No symptoms reported Neurological/Psychological: See HPI, Seizure, Headaches -: Yes All other systems reviewed and negative Physical Exam - Vital signs Vitals: Temp 98.6 F 01/27/20 07:05 - Notes Notes: Physical Exam: General: Alert, appears well. HEENT: Atraumatic. PERRL. Extraocular movements intact. Oropharynx clear. Left lower lip on the inside is contused with no laceration. Above the right eyebrow has tender swelling. Neck: Supple. Non-tender. Respiratory: No respiratory distress. Clear and equal breath sounds bilaterally. Cardiovascular: Regular rate and rhythm. Abdominal: Normal Inspection. Non-tender. No distension. Normal Bowel Sounds. Back: No gross abnormalities. Extremities: Moves all four extremities. Upper extremities: Normal inspection. Normal ROM. Lower extremities: Normal inspection. No edema. Normal ROM. Neurological: Normal cognition. AAOx4. Normal speech. Psychological: Normal affect. Normal Mood. Skin: Warm. Dry. Normal color. Course - Vital Signs Vital signs: Temp Pulse Resp BP Pulse Ox 98.6 F 73 16 115/61 100 01/27/20 07:07 01/27/20 07:07 01/27/20 07:07 01/27/20 07:07 01/27/20 07:07 Discharge - Discharge Clinical Impression: Seizures, Has run out of medications Forehead contusion Qualifiers: Encounter type: initial encounter Qualified Code(s): S00.83XA - Contusion of other part of head, initial encounter Contusion of lip Qualifiers: Encounter type: initial encounter Qualified Code(s): S00.531A - Contusion of lip, initial encounter Additional Instructions: Seizure, Known Epileptic You have had a seizure. Seizures may "break through" in an epileptic due to stress of infection or injury, a change in blood chemistry, or drug and alcohol use. Another common cause is failure to take medication as prescribed. Your doctor has evaluated your situation for the likely cause of this seizure. It is important that you follow his advice concerning any medication changes and follow-up care. Further testing of anti-seizure medication levels in your blood may be necessary. If you have a [place] driver's license, it's important that you DO NOT DRIVE until given permission by your physician. This seizure must be reported to the [place] [employer] driver's license bureau. Call the doctor or return if seizures recur, or if new or unusual symptoms arise -- such as severe headache, confusion, excessive sleepiness, local weakness or numbness, neck stiffness, or fever. Take the medication as prescribed. Follow-up with either the [facility], or the [facility] to help manage her seizures and make medication adjustments as needed. RETURN TO THE EMERGENCY ROOM IF ANY NEW OR WORSENING SYMPTOMS. Prescriptions: Levetiracetam [Keppra 500 mg Tablet] 500 mg PO Q12 #60 tablet Referrals: [facility] [Provider Group] - Follow up as needed [facility] [Outside] - Follow up as needed I personally performed the services described in the documentation, reviewed and edited the documentation which was dictated to the scribe in my presence, and it accurately records my words and actions.
[2020-01-27 08:49] VITALS: BP 118/64
== END 2020-01-27 08:49 | disposition home or self-care (01) ==
LOC: ER 07:04
DX: R56.9 Unspecified convulsions (principal); S00.83XA Contusion of other part of head, initial encounter; S00.531A Contusion of lip, initial encounter; W19.XXXA Unspecified fall, initial encounter; Y92.832 Beach as the place of occurrence of the external cause; R51 Headache; J45.909 Unspecified asthma, uncomplicated; Z91.018 Allergy to other foods; Z88.6 Allergy status to analgesic agent; Z88.5 Allergy status to narcotic agent
CPT/HCPCS: 99283

== ENCOUNTER 2020-01-29 02:23 | Emergency (ER) | payer SELFPAY ==
[2020-01-29] MEDS ORDERED: ONDANSETRON HCL INJ/PF 4 MG/2 ML SDV IV ONE (03:30)
[2020-01-29] MEDS ORDERED: OXYCODONE-ACETAMINOPHEN 5-325 MG TABLET PO ONE (03:30)
[2020-01-29] MEDS ORDERED: NORMAL SALINE 1000 ML 1,000 ML IV ONE (03:30)
--- NOTE | 2020-01-29 03:33 | ER Document Report ---
ED GI/ - General Chief Complaint: Vaginal Bleeding Stated Complaint: LOWER RIGHT ABDOMINAL PAIN Time Seen by Provider: 01/29/20 03:21 Primary Care Provider: ERIC BURTON MD [ACTIVE PROVISIONAL STAFF] - 01/31/20 Notes: Patient is a 34-year-old female that comes emergency department for chief complaint of right pelvic pain, an episode of vomiting, and heavy vaginal bleeding. She states that she had a menstrual cycle 3 weeks ago, she started bleeding again several days ago initially heavier, and then r d intern, then heavy again tonight. She denies vaginal discharge, dysuria, flank pain, fever. She is sexually active, is not on control, has had reportedly left fallopian tube and left ovary removed secondary to ectopic , she states she was told that her right fallopian tube was too narrow and she could not get . She also reports a history of seizure disorder. She denies any medical history otherwise. TRAVEL OUTSIDE OF THE [place] IN LAST 30 DAYS: No - Related Data Allergies/Adverse Reactions: banana [Banana] Allergy (Intermediate, Verified 01/22/19 10:34) swelling morphine [Morphine] Allergy (Intermediate, Verified 01/22/19 10:34) Hives Home Medications: Keppra Past Medical History - General Information source: Patient - Social History Smoking Status: Current Every Day Smoker Frequency of alcohol use: None Drug Abuse: None Lives with: Family Family History: Reviewed & Not Pertinent Patient has homicidal ideation: No - Past Medical History Cardiac Medical History: Denies: Hx Hypertension Pulmonary Medical History: Reports: Hx Asthma Neurological Medical History: Reports: Hx Seizures - NEVER EVALUATED BY NEUROLOGY, no medication Endocrine Medical History: Denies: Hx Diabetes Mellitus Type 1, Hx Diabetes Mellitus Type 2 Renal/ Medical History: Reports: Hx Ectopic . Denies: Hx Kidney Stones, Hx Ovarian Cysts, Hx Peritoneal Dialysis, Hx Pelvic Inflammatory Disease, Hx Renal Insufficiency GI Medical History: Denies: Hx Gastritis, Hx Gastroesophageal Reflux Disease Musculoskeletal Medical History: Denies Hx Musculoskeletal Trauma Skin Medical History: Denies Hx Cellulitis, Denies Hx Eczema, Denies Hx MRSA, Denies Hx Psoriasis Past Surgical History: Reports: Hx Section, Hx Gynecologic Surgery - left fallopion, etopic - Immunizations Hx Diphtheria, Pertussis, Tetanus Vaccination: Yes - 2010 Review of Systems - Review of Systems Constitutional: No symptoms reported EENT: No symptoms reported Cardiovascular: No symptoms reported Respiratory: No symptoms reported Gastrointestinal: See HPI Genitourinary: See HPI Female Genitourinary: See HPI Musculoskeletal: No symptoms reported Skin: No symptoms reported Hematologic/Lymphatic: No symptoms reported Neurological/Psychological: No symptoms reported Physical Exam - Vital signs Vitals: Temp Pulse Resp BP Pulse Ox 98.4 F 74 16 107/54 L 74 L 01/29/20 02:28 01/29/20 02:01/29/20 02:01/29/20 02:01/29/20 02:28 - Notes Notes: GENERAL: Alert, interacts well. No acute distress. HEAD: Normocephalic, atraumatic. EYES: Pupils equal, round, and reactive to light. Extraocular movements intact. ENT: Oral mucosa moist, tongue midline. Oropharynx unremarkable. Airway patent. NECK: Full range of motion. Supple. Trachea midline. No lymphadenopathy. LUNGS: Clear to auscultation bilaterally, no wheezes, rales, or rhonchi. No respiratory distress. Non-tender chest wall. HEART: Regular rate and rhythm. No murmur ABDOMEN: Tenderness in the right lower abdomen and specifically in the right pelvic area. The pelvic area appears to be more tender, there is no overt McBurney's point tenderness. No guarding or rigidity, no distention. Bowel sounds present. EXTREMITIES: Moves all 4 extremities spontaneously. No edema, normal radial and dorsalis pedis pulses bilaterally. No cyanosis. BACK: no cervical, thoracic, lumbar midline tenderness. No saddle anesthesia, normal distal neurovascular exam. Moves all extremities in full range of motion. NEUROLOGICAL: Alert and oriented x3. Normal speech. Cranial nerves II through XII grossly intact. Strength 5/5 in all extremities. PSYCH: Normal affect, normal mood. SKIN: Warm, dry, normal turgor. No rashes or lesions noted. Course - Re-evaluation Re-evalutation: Patient does have right lower abdomen/pelvic tenderness, no overt McBurney's point tenderness. Despite this tenderness there is no overt or severe guarding, no swelling or rebound tenderness, no CVA tenderness. Patient is bleeding vaginally. Vital signs unremarkable. Patient is actually quite comfortable in appearance. CBC unremarkable with no leukocytosis or low hemoglobin. Chemistry unremarkable. test is positive, obtained Type and screen, patient has been placed on the monitor, ultrasound will be performed at bedside so patient can be monitored. HCG in the 500s. Ultrasound showing cystic area around the right ovary, ectopic cannot be excluded. I spoke with Dr. Burton. She will evaluate the patient. Dr. Burton has evaluate the patient, reviewed data, and discussed with the patient extensively. Patient has elected to go home despite recommendation of admission with serial abdominal exams. However Dr. Burton states the patient is very experienced with this, she states he will return if she develops any worsening symptoms and these have been discussed in detail. Patient provided with proof of , has not been provided with pain medication because she is supposed to return if she worsens, she is referred to the office for repeat hCG, patient stable and well-appearing at time of discharge. - Vital Signs Vital signs: Temp Pulse Resp BP Pulse Ox 98.4 F 74 19 107/60 74 L 01/29/20 02:45 01/29/20 02:28 01/29/20 07:00 01/29/20 05:01 01/29/20 02:28 - Laboratory Result Diagrams: 01/29/20 03:15 01/29/20 03:51 Laboratory results interpreted by me: 01/29/20 01/29/20 01/29/20 03:15 03:15 03:15 RDW 14.7 H Sodium Serum HCG, Qual POSITIVE H Beta HCG, Quant Urine Protein 100 H Urine Blood LARGE H Urine Urobilinogen 2.0 H 01/29/20 01/29/20 03:51 03:51 RDW Sodium 136.1 L Serum HCG, Qual Beta HCG, Quant 548.67 H Urine Protein Urine Blood Urine Urobilinogen Discharge - Discharge Clinical Impression: Positive test, Lower abdominal pain, Vaginal bleeding Condition: Stable Disposition: HOME, SELF-CARE Additional Instructions: Your test is positive, your work-up at this time is indeterminate. Your evaluated by Dr. Eric Burton, [employer] this morning. Please be seen on Friday in the office to have repeat testing and additional management. Call the listed referral early Friday. You can take the Zofran if needed for nausea. Return to the emergency department if you worsen including severe worsening pain, fever/chills, repeated vomiting, heavy bleeding, dizziness, passing out, or any other concerning or worsening symptoms. Prescriptions: Ondansetron [Zofran Odt 4 mg Tablet] 1 - 2 tab PO Q4H PRN #15 tab.rapdis PRN Reason: For Nausea/Vomiting Forms: Return to Work Referrals: ERIC BURTON MD [ACTIVE PROVISIONAL STAFF] - 01/31/20
[2020-01-29 03:42] LABS: ABSOLUTE BASOPHILS # (AUTO) 0.1 10^3/uL (0.0-0.2); ABSOLUTE EOSINOPHILS # (AUTO) 0.2 10^3/uL (0.0-0.6); ABSOLUTE MONOCYTES (AUTO) 0.5 10^3/uL (0.1-1.4); ABSOLUTE NEUT (AUTO) 4.8 10^3/uL (1.7-8.2); BASOPHILS % (AUTO) 0.9 % (0-2); HEMATOCRIT 41.9 % (36.0-47.0); HEMOGLOBIN 13.8 g/dL (12.0-15.5); LYMPHOCYTES % (AUTO) 26.5 % (13-45); MEAN CORPUSCULAR HEMOGLOBIN 30.2 pg (27.0-33.4); MEAN CORPUSCULAR HGB CONC 32.9 g/dL (32.0-36.0); MEAN CORPUSCULAR VOLUME 92 fl (80-97); MONOCYTES % (AUTO) 6.6 % (3-13); PLATELET COUNT 394 10^3/uL (150-450); RED BLOOD COUNT 4.58 10^6/uL (3.72-5.28); RED CELL DISTRIBUTION WIDTH 14.7 % (11.5-14.0); TOTAL CELLS COUNTED % (AUTO) 100 %; WHITE BLOOD COUNT 7.5 10^3/uL (4.0-10.5)
[2020-01-29 04:16] LABS: ALKALINE PHOSPHATASE 61 U/L (38-126); ANION GAP 7 (5-19); ASPARTATE AMINO TRANSFERASE 25 U/L (14-36); BILIRUBIN,TOTAL 0.3 mg/dL (0.2-1.3); BLOOD UREA NITROGEN 14 mg/dL (7-20); CALCIUM 9.7 mg/dL (8.4-10.2); CARBON DIOXIDE 27 mmol/L (22-30); CHLORIDE 102 mmol/L (98-107); GLUCOSE 95 mg/dL (75-110); POTASSIUM 4.1 mmol/L (3.6-5.0); TOTAL PROTEIN 6.9 g/dL (6.3-8.2)
[2020-01-29 05:04] LABS: APPEARANCE,URINE CLOUDY; BILIRUBIN,URINE NEGATIVE (NEGATIVE); COLOR,URINE RED; GLUCOSE, URINE NEGATIVE (NEGATIVE); KETONES,URINE NEGATIVE (NEGATIVE); LEUKOCYTE ESTERASE,URINE NEGATIVE (NEGATIVE); NITRITE,URINE NEGATIVE (NEGATIVE); PROTEIN,URINE 100 mg/dL (NEGATIVE); URINE SPECIFIC GRAVITY 1.021
--- NOTE | 2020-01-29 05:41 | RADIOLOGY REPORT (SQ) ---
Ultrasound OB transvaginal on 01/29/2020 at 4:22 AM CLINICAL INDICATION: Sharp right pelvic pain, vomiting, , history of prior ectopic COMPARISON: None FINDINGS: Multiple sonographic images are obtained throughout the pelvis by transvaginal approach, both transverse and sagittal images are obtained. The uterus measures approximately 8.4 x 3.8 x 4.9 cm. Endometrial stripe measures 6 mm which is within normal limits. No intrauterine is identified. The patient is reportedly status post left oophorectomy. Trace free fluid in the pelvis is likely physiologic. Complex area in the right adnexa measures approximately 6.6 x 3.1 x 4.7 cm. Definite distinct right ovarian tissue is not well identified but there is flow demonstrated within this right adnexal structure and favor at least a portion of this to be ovarian. The patient's beta-hCG is in the 500s, at that level an early intrauterine would not have to be identified. The appearance of the right adnexa and the patient's history however is concerning for but not definitive for a right adnexal ectopic . Would recommend appropriate gynecologic consultation and follow-up. This case was discussed by myself by phone with YANETH Spain in the emergency department taking care of the patient on 01/29/2020 at 5:37 AM eastern time. There is no evidence to suggest ruptured ectopic . IMPRESSION: No intrauterine identified. At the patient's low beta hCG level this does not have to definitively be identified at this level. However with the patient's prior history and the complex lesion in the right adnexa and the patient's right pelvic pain make the findings concerning for but not definitive for a right ectopic . Recommend gynecologic consultation and appropriate follow-up.
[2020-01-29 06:28] VITALS: BP 107/60
--- NOTE | 2020-01-29 09:22 | PDOC CONSULTATION ---
Consultation Consult Date: 01/29/20 Provider Consulted: ERIC JACOBS History of Present Illness Patient complains of: Vaginal bleeding, positive HCG and abdominal pain History of Present Illness: TIFFANY ERICKSON is a 34 year old female who presents to the ED with abdominal pain, Vaginal bleeding and positive HCG in ED. ER findings on US today showed no IUP but HCG was 580 today so IUP would not be seen in the uterus until HCG reaches 1,500 to 2,000 level. US findings with abnormal findings in right adnexa that cannot rule out Ectopic . Patient feels mild pain presently in lower abdomen-primarily on right. Does not radiate She reports light vaginal bleeding presently. Has had heavy vaginal bleeding off and on over last 3 wks. She thought this was just her period. Bleeding with clots and heavy flow and flow then light flow intermittently She reports no fevers, chills, nausea or vomiting. She has not felt like eating. No bowel or bladder complaints. Past Medical History Cardiac Medical History: Denies: Hypertension Pulmonary Medical History: Reports: Asthma Neurological Medical History: Reports: Seizures - NEVER EVALUATED BY NEUROLOGY, no medication Endocrine Medical History: Denies: Diabetes Mellitus Type 1, Diabetes Mellitus Type 2 GI Medical History: Denies: Gastroesophageal Reflux Disease Skin Medical History: Denies: Eczema, Psoriasis Social History Lives with: Family Smoking Status: Current Every Day Smoker Frequency of Alcohol Use: None Hx Recreational Drug Use: No Hx Prescription Drug Abuse: No Family History Family History: Reviewed & Not Pertinent Parental Family History Reviewed: Yes Children Family History Reviewed: Yes Sibling(s) Family History Reviewed.: Yes Medication/Allergy Home Medications: Levetiracetam [Keppra 500 mg Tablet] 1,000 mg PO Q12 #120 tablet 12/10/16 Levetiracetam [Keppra] 1,000 mg PO BID #60 tablet 07/08/17 Penicillin V Potassium [Penicillin Vk 500 mg Tablet] 500 mg PO BID #20 tablet 08/21/17 Acetaminophen with Codeine [Tylenol #3 Tablet] 1 each PO Q4HP PRN #10 tablet 08/23/17 Azelastine HCl 205.5 mcg NS BID PRN #1 bottle 11/17/17 Prochlorperazine Maleate [Compazine 10 mg Tablet] 10 mg PO ASDIR PRN #20 tablet 11/17/17 Ciprofloxacin HCl/Dexameth [Ciprodex Otic Suspension 7.5 ml Bottle] 4 drop OT BID #1 bottle 03/01/18 Ibuprofen [Motrin 600 Mg Tablet] 600 mg PO TID #15 tablet 04/15/18 Ondansetron [Zofran Odt 4 mg Tablet] 1 - 2 tab PO Q4H PRN #15 tab.rapdis 04/15/18 Sulfamethoxazole/Trimethoprim [Bactrim Ds Tablet] 1 each PO BID #10 tablet 04/15/18 Benzonatate [Tessalon Perles 100 mg Capsule] 100 mg PO Q8HP PRN #40 capsule 08/06/18 Mometasone Furoate [Nasonex] 1 spray NS Q12 #1 spray.pump 08/06/18 Cephalexin Monohydrate [Keflex 500 mg Capsule] 500 mg PO TID 7 Days #21 capsule 01/22/19 Phenazopyridine HCl [Pyridium 200 mg Tablet] 200 mg PO TID #15 tablet 01/22/19 Methocarbamol [Robaxin 750 mg Tablet] 750 mg PO ASDIR PRN #40 tablet 04/07/19 Levetiracetam [Keppra 500 mg Tablet] 500 mg PO Q12 #60 tablet 09/10/19 Levetiracetam [Keppra 500 mg Tablet] 500 mg PO Q12 #60 tablet 01/27/20 Ondansetron [Zofran Odt 4 mg Tablet] 1 - 2 tab PO Q4H PRN #15 tab.rapdis 01/29/20 Allergies/Adverse Reactions: banana [Banana] Allergy (Intermediate, Verified 01/22/19 10:34) swelling morphine [Morphine] Allergy (Intermediate, Verified 01/22/19 10:34) Hives Review of Systems Constitutional: ABSENT: chills, fever(s), headache(s), weight gain, weight loss Cardiovascular: ABSENT: chest pain, dyspnea on exertion, edema, orthropnea, palpitations Respiratory: ABSENT: cough, hemoptysis Gastrointestinal: PRESENT: abdominal pain. ABSENT: constipation, diarrhea, hematemesis, hematochezia, nausea, vomiting Genitourinary: ABSENT: dysuria, hematuria Musculoskeletal: ABSENT: joint swelling Integumentary: ABSENT: rash, wounds Psychiatric: ABSENT: anxiety, depression, homidical ideation, suicidal ideation Endocrine: ABSENT: cold intolerance, heat intolerance, polydipsia, polyuria Physical Exam - Physical Exam Vital Signs: Temp Pulse Resp BP Pulse Ox 98.4 F 74 19 107/60 74 L 01/29/20 02:45 01/29/20 02:28 01/29/20 07:00 01/29/20 05:01 01/29/20 02:28 Intake & Output 01/28/20 01/29/20 01/30/20 06:59 06:59 06:59 Intake Total 1000 Balance 1000 Weight 73.9 kg General appearance: PRESENT: no acute distress, cooperative - Sitting up in bed Respiratory exam: PRESENT: clear to auscultation emil Cardiovascular exam: PRESENT: RRR, +S1, +S2 GI/Abdominal exam: PRESENT: normal bowel sounds, soft, tenderness - Tender to palpation RLQ with out reboudn or guarding Extremities exam: PRESENT: full ROM. ABSENT: calf tenderness, clubbing, pedal edema Skin exam: PRESENT: dry, intact, warm. ABSENT: cyanosis, rash - Gynecological Exam Labia: normal Introitus: normal Perineum: normal Vagina: normal - Small amount dark blood Result Laboratory Results: 01/29/20 03:15 01/29/20 03:51 01/29/20 01/29/20 01/29/20 03:15 03:15 03:15 WBC 7.5 RBC 4.58 Hgb 13.8 Hct 41.9 MCV 92 MCH 30.2 MCHC 32.9 RDW 14.7 H Plt Count 394 Seg Neutrophils % 64.0 Sodium Cancelled Potassium Cancelled Chloride Cancelled Carbon Dioxide Cancelled Anion Gap Cancelled BUN Cancelled Creatinine Cancelled Est GFR ( Amer) Cancelled Est GFR (Non-Af Amer) Cancelled Glucose Cancelled Calcium Cancelled Total Bilirubin Cancelled AST Cancelled Alkaline Phosphatase Cancelled Total Protein Cancelled Albumin Cancelled Serum HCG, Qual POSITIVE H Urine Color Urine Appearance Urine pH Ur Specific Guy Urine Protein Urine Glucose (UA) Urine Ketones Urine Blood Urine Nitrite Ur Leukocyte Esterase Urine WBC (Auto) Urine RBC (Auto) Blood Type Antibody Screen 01/29/20 01/29/20 01/29/20 03:15 03:51 04:08 WBC RBC Hgb Hct MCV MCH MCHC RDW Plt Count Seg Neutrophils % Sodium 136.1 L Potassium 4.1 Chloride 102 Carbon Dioxide 27 Anion Gap 7 BUN 14 Creatinine 0.83 Est GFR ( Amer) > 60 Est GFR (Non-Af Amer) Glucose 95 Calcium 9.7 Total Bilirubin 0.3 AST 25 Alkaline Phosphatase 61 Total Protein 6.9 Albumin 4.0 Serum HCG, Qual Urine Color RED Urine Appearance CLOUDY Urine pH 6.0 Ur Specific Guy 1.021 Urine Protein 100 H Urine Glucose (UA) NEGATIVE Urine Ketones NEGATIVE Urine Blood LARGE H Urine Nitrite NEGATIVE Ur Leukocyte Esterase NEGATIVE Urine WBC (Auto) 13 Urine RBC (Auto) >182 Blood Type O POSITIVE Antibody Screen NEGATIVE Impressions: Transvaginal US 01/29/20 03:30 IMPRESSION: No intrauterine identified. At the patient's low beta hCG level this does not have to definitively be identified at this level. However with the patient's prior history and the complex lesion in the right adnexa and the patient's right pelvic pain make the findings concerning for but not definitive for a right ectopic . Recommend gynecologic consultation and appropriate follow-up. Assessment & Plan - Diagnosis (1) Lower abdominal pain Is this a current diagnosis for this admission?: Yes (2) Positive test Is this a current diagnosis for this admission?: Yes (3) Vaginal bleeding Is this a current diagnosis for this admission?: Yes - Plan Summary Plan Summary: 34 yo with positive HCG, Vaginal bleeding and abdominal pain -VSS -Hgb 13.8, WBC 7.5, and HCG 548 -No acute distress, sitting up in bed. Exam positive for pain in rLQ on deep palpation. No rebound or guarding -Discussed with patient that at either early and wont see IUP until quant HCG of [id number], or could be she had a spontaneous (miscarriage ) that is resolving or she may have an early ectopic . Recommend repeat HCG and US as outpatient as she has no s/s of acute abdomen. Will plan repeat lab and US at our office on Friday 2 days from now. -Precautions for fever, worsening pain or heavy bleeding and retrun to ED if these occur
== END 2020-01-29 07:41 | disposition home or self-care (01) ==
LOC: ER 02:23
DX: O20.9 Hemorrhage in early pregnancy, unspecified (principal); R10.30 Lower abdominal pain, unspecified; O99.331 Smoking (tobacco) complicating pregnancy, first trimester; Z3A.01 Less than 8 weeks gestation of pregnancy
CPT/HCPCS: 99284; 96361; 96374; 86900; 86901; 36415; 86850; 84702; 84703; 85025; 80053; 81001; 76817; 93976; J2405; J7030

== ENCOUNTER 2020-01-30 18:45 | Observation (INO) | payer SELFPAY ==
--- NOTE | 2020-01-30 19:08 | ER Document Report ---
ED Medical Screen (RME) - General Chief Complaint: Vaginal Bleeding Stated Complaint: VAGINAL BLEEDING Time Seen by Provider: 01/30/20 19:03 Information source: Patient Notes: This is a 34-year-old female presents to the emergency room today stating that she was seen here yesterday told she had the possibility of an ectopic and to return here for any increase in pain which is having ordered a beta quant here in triage and she needs to be reevaluated back. I greeted and performed a rapid initial assessment of this patient. Comprehensive ED assessment and evaluation of the patient, analysis of test resu lts and completion of the medical decision making process will be conducted by additional ED providers. TRAVEL OUTSIDE OF THE [place] IN LAST 30 DAYS: No - Related Data Allergies/Adverse Reactions: banana [Banana] Allergy (Intermediate, Verified 01/22/19 10:34) swelling morphine [Morphine] Allergy (Intermediate, Verified 01/22/19 10:34) Hives Past Medical History - Past Medical History Cardiac Medical History: Denies: Hx Hypertension Pulmonary Medical History: Reports: Hx Asthma Neurological Medical History: Reports: Hx Seizures - NEVER EVALUATED BY NEUROLOGY, no medication Endocrine Medical History: Denies: Hx Diabetes Mellitus Type 1, Hx Diabetes Mellitus Type 2 Renal/ Medical History: Reports: Hx Ectopic . Denies: Hx Kidney Stones, Hx Ovarian Cysts, Hx Peritoneal Dialysis, Hx Pelvic Inflammatory Disease, Hx Renal Insufficiency GI Medical History: Denies: Hx Gastritis, Hx Gastroesophageal Reflux Disease Musculoskeltal Medical History: Denies Hx Musculoskeletal Trauma Skin Medical History: Denies Hx Cellulitis, Denies Hx Eczema, Denies Hx MRSA, Denies Hx Psoriasis Past Surgical History: Reports: Hx Section, Hx Gynecologic Surgery - left fallopion, etopic - Immunizations Hx Diphtheria, Pertussis, Tetanus Vaccination: Yes - 2010 Physical Exam - Vital signs Vitals: Temp Pulse Resp BP Pulse Ox 99.2 F 75 20 113/51 L 96 01/30/20 18:59 01/30/20 18:59 01/30/20 18:59 01/30/20 18:59 01/30/20 18:59 Course - Vital Signs Vital signs: Temp Pulse Resp BP Pulse Ox 99.2 F 75 20 113/51 L 96 01/30/20 19:01 01/30/20 18:59 01/30/20 18:59 01/30/20 18:59 01/30/20 18:59
--- NOTE | 2020-01-30 20:12 | ER Document Report ---
ED GI/ - General Chief Complaint: Vaginal Bleeding Stated Complaint: VAGINAL BLEEDING Time Seen by Provider: 01/30/20 19:03 Notes: Patient is a 34-year-old female that comes emergency department for chief complaint of right-sided abdominal pain. She also vomited 4 times today. Patient was evaluated by me approximately 24 hours ago, she was evaluated by INSTRUCTIONAL TECHNOLOGY TEACHER, at that time there was a discussion of admission versus follow-up on Friday, patient states that she elected to go home, patient states that she worsened and the pain has become much more severe. She still has intermittent vaginal bleeding. She had a positive test on her evaluation with an hCG of approximately 500. She has a history of ectopic on both sides, she has a left fallopian tube and ovary removal, she has had removal of an ectopic on the right side but still has the right-sided ovary and fallopian tube. Patient started she is starting to have some pain in her lower back on the right side as well. She denies dysuria, vaginal discharge, fever/chills. She had a normal bowel movement today. She denies other abdominal surgeries. She is treated for a seizure disorder. Patient reports her last meal was 5 hours prior to arrival. TRAVEL OUTSIDE OF THE [place] IN LAST 30 DAYS: No - Related Data Allergies/Adverse Reactions: banana [Banana] Allergy (Intermediate, Verified 01/22/19 10:34) swelling morphine [Morphine] Allergy (Intermediate, Verified 01/22/19 10:34) Hives Past Medical History - General Information source: Patient - Social History Smoking Status: Never Smoker Frequency of alcohol use: None Drug Abuse: None Lives with: Family Family History: Reviewed & Not Pertinent Patient has homicidal ideation: No - Past Medical History Cardiac Medical History: Denies: Hx Hypertension Pulmonary Medical History: Reports: Hx Asthma Neurological Medical History: Reports: Hx Seizures - NEVER EVALUATED BY NEUROLOGY, no medication Endocrine Medical History: Denies: Hx Diabetes Mellitus Type 1, Hx Diabetes Mellitus Type 2 Renal/ Medical History: Reports: Hx Ectopic . Denies: Hx Kidney Stones, Hx Ovarian Cysts, Hx Peritoneal Dialysis, Hx Pelvic Inflammatory Disease, Hx Renal Insufficiency GI Medical History: Denies: Hx Gastritis, Hx Gastroesophageal Reflux Disease Musculoskeletal Medical History: Denies Hx Musculoskeletal Trauma Skin Medical History: Denies Hx Cellulitis, Denies Hx Eczema, Denies Hx MRSA, Denies Hx Psoriasis Past Surgical History: Reports: Hx Section, Hx Gynecologic Surgery - left fallopion, etopic - Immunizations Hx Diphtheria, Pertussis, Tetanus Vaccination: Yes - 2010 Review of Systems - Review of Systems Constitutional: No symptoms reported EENT: No symptoms reported Cardiovascular: No symptoms reported Respiratory: No symptoms reported Gastrointestinal: See HPI Genitourinary: See HPI Female Genitourinary: See HPI Musculoskeletal: No symptoms reported Skin: No symptoms reported Hematologic/Lymphatic: No symptoms reported Neurological/Psychological: No symptoms reported Physical Exam - Vital signs Vitals: Temp Pulse Resp BP Pulse Ox 99.2 F 75 20 113/51 L 96 01/30/20 18:59 01/30/20 18:59 01/30/20 18:59 01/30/20 18:59 01/30/20 18:59 - Notes Notes: GENERAL: Alert, interacts well. No acute distress. HEAD: Normocephalic, atraumatic. EYES: Pupils equal, round, and reactive to light. Extraocular movements intact. ENT: Oral mucosa moist, tongue midline. Oropharynx unremarkable. Airway patent. LUNGS: Clear to auscultation bilaterally, no wheezes, rales, or rhonchi. No respiratory distress. Non-tender chest wall. HEART: Regular rate and rhythm. No murmur ABDOMEN: Patient is tender with some guarding in the right generalized lower abdomen extending up to the mid abdomen. Left abdomen is completely unremarkable. Upper abdomen unremarkable. Bowel sounds are present. Questionable mild distention. No rigidity. EXTREMITIES: Moves all 4 extremities spontaneously. No edema, normal radial and dorsalis pedis pulses bilaterally. No cyanosis. BACK: no cervical, thoracic, lumbar midline tenderness. No saddle anesthesia, normal distal neurovascular exam. Moves all extremities in full range of motion. NEUROLOGICAL: Alert and oriented x3. Normal speech. Cranial nerves II through XII grossly intact. Strength 5/5 in all extremities. PSYCH: Normal affect, normal mood. SKIN: Warm, dry, normal turgor. No rashes or lesions noted. Course - Re-evaluation Re-evalutation: Patient is alert and well-appearing, abdomen does appear to have some mild distention, patient is tender all the way from the right pelvic region up to the right mid abdomen and slightly over the suprapubic area. Left side is unremarkable. Vital signs are unremarkable. CBC added and unremarkable, hCG is slightly elevated compared to yesterday, previously 548, now 581. Patient had a type and screen yesterday and this showed that she was O+. Patient is not hypotensive or tachycardic. I called and spoke with Dr. Armendariz, and [employer] librarian special collections, she does recommend repeat ultrasound for comparison and a call back. Repeat ultrasound resulted, still shows complex area adjacent to the right ovary, radiologist did call and report that this is suspicious for ectopic . I called and spoke with Dr. Armendariz, she accepts patient to her service and will evaluate the patient upstairs for additional management. I discussed with patient, she is in full agreement with this plan. Patient alert, well-appearing on my reevaluation. = - Vital Signs Vital signs: Temp Pulse Resp BP Pulse Ox 97.6 F 59 L 16 102/45 L 99 01/31/20 00:00 01/31/20 00:00 01/31/20 00:00 01/31/20 00:00 01/31/20 00:00 - Laboratory Result Diagrams: 01/30/20 19:10 01/30/20 19:10 Laboratory results interpreted by me: 01/30/20 01/30/20 01/30/20 19:10 19:10 19:10 RDW 14.5 H Sodium 135.8 L Glucose 114 H Beta HCG, Quant 581.63 H Discharge - Discharge Clinical Impression: Pelvic pain, Right sided abdominal pain Ectopic Qualifiers: Location of ectopic : ovarian Intrauterine status: without intrauterine Laterality: right Qualified Code(s): O00.201 - Right ovarian without intrauterine Condition: Stable Disposition: ADMITTED OBSERVATION Admitting Provider: [facility] Unit Admitted: Post
[2020-01-30 20:24] LABS: ABSOLUTE EOSINOPHILS # (AUTO) 0.1 10^3/uL (0.0-0.6); ABSOLUTE LYMPHOCYTES (AUTO) 2.5 10^3/uL (0.5-4.7); ABSOLUTE MONOCYTES (AUTO) 0.4 10^3/uL (0.1-1.4); BASOPHILS % (AUTO) 0.5 % (0-2); EOSINOPHILS % (AUTO) 1.1 % (0-6); HEMATOCRIT 39.3 % (36.0-47.0); HEMOGLOBIN 13.1 g/dL (12.0-15.5); LYMPHOCYTES % (AUTO) 30.6 % (13-45); MEAN CORPUSCULAR HEMOGLOBIN 30.4 pg (27.0-33.4); MEAN CORPUSCULAR HGB CONC 33.3 g/dL (32.0-36.0); MEAN CORPUSCULAR VOLUME 91 fl (80-97); MONOCYTES % (AUTO) 5.4 % (3-13); PLATELET COUNT 346 10^3/uL (150-450); RED BLOOD COUNT 4.31 10^6/uL (3.72-5.28); RED CELL DISTRIBUTION WIDTH 14.5 % (11.5-14.0); SEGMENTED NEUTROPHILS % (AUTO) 62.4 % (42-78); TOTAL CELLS COUNTED % (AUTO) 100 %; WHITE BLOOD COUNT 8.1 10^3/uL (4.0-10.5)
[2020-01-30] MEDS ORDERED: ONDANSETRON HCL INJ/PF 4 MG/2 ML SDV IV ONE (20:26)
[2020-01-30] MEDS ORDERED: NORMAL SALINE 1000 ML 1,000 ML IV ONE (20:26)
[2020-01-30] MEDS ORDERED: OXYCODONE HCL IR 5 MG TABLET PO ONE (20:30)
[2020-01-30 20:50] LABS: ALBUMIN 4.5 g/dL (3.5-5.0); ALKALINE PHOSPHATASE 64 U/L (38-126); ANION GAP 7 (5-19); ASPARTATE AMINO TRANSFERASE 25 U/L (14-36); BILIRUBIN,TOTAL 0.3 mg/dL (0.2-1.3); BLOOD UREA NITROGEN 17 mg/dL (7-20); CARBON DIOXIDE 28 mmol/L (22-30); CHLORIDE 101 mmol/L (98-107); GLUCOSE 114 mg/dL (75-110); POTASSIUM 4.1 mmol/L (3.6-5.0); TOTAL PROTEIN 7.7 g/dL (6.3-8.2)
--- NOTE | 2020-01-30 21:57 | RADIOLOGY REPORT (SQ) ---
EXAM DESCRIPTION: US TRANSVAGINAL COMPLETED DATE/TME: 01/30/2020 20:46 CLINICAL HISTORY: 34 years, Female, worsening pain, vomiting COMPARISON: Obstetrical ultrasound 01/29/2020 TECHNIQUE: LIMITATIONS: None. FINDINGS: As seen on the prior examination, there is a 6.4 x 5.1 x 2.6 cm complex mass in the right adnexa, medial to the right ovary. There is no IUP. The endometrial stripe measures 4.7 mm. There is a 1.4 cm left ovarian corpus luteum cyst. There is a minimal amount of free fluid. There is no significant change, as compared with the prior study. IMPRESSION: No IUP, with a complex mass in the right adnexa. Findings are suspicious for ectopic . copyright 2010 [facility] [employer]- All Rights Reserved
--- NOTE | 2020-01-30 22:08 | PDOC H&P ---
History of Present Illness Admission Date/PCP: 01/30/2020 Patient complains of: vaginal bleeding, positive preg test, adnexal pain History of Present Illness: TIFFANY ERICKSON is a 34 year old female who presents to the ED with abdominal pain, Vaginal bleeding and positive HCG in ED. ER findings on US on 01/28 showed no IUP but HCG was 548 and patient was evaluated and she decided for outpatient management. She presents again today due to vomiting and right adnexal pain. Now her BHCG was 580. US findings with abnormal findings in right adnexa suspicious for ectopic . Patient feels mild pain presently in lower abdomen-primarily on right. Does not radiate. Really hurts when you push on her abd but dull ache o/w. She reports light vaginal bleeding presently. Has had heavy vaginal bleeding off and on over last 3 wks. She thought this was just her period. Bleeding with cl ots and heavy flow and flow then light flow intermittently She reports no fevers, chills, nausea or vomiting. Did have some vomiting earlier. She has not felt like eating. No bowel or bladder complaints. Past Medical History Gynecological Infection: No Cardiac Medical History: Denies: Hypertension Pulmonary Medical History: Reports: Asthma Neurological Medical History: Reports: Seizures - NEVER EVALUATED BY NEUROLOGY, no medication Endocrine Medical History: Denies: Diabetes Mellitus Type 1, Diabetes Mellitus Type 2 GI Medical History: Denies: Gastroesophageal Reflux Disease Skin Medical History: Denies: Eczema, Psoriasis Past Surgical History Past Surgical History: Reports: Section, Other - removal of left tube ?ovary due to ectopic, 2nd ectopic treated by MTX Social History Information Source: Patient Lives with: Family Smoking Status: Never Smoker Electronic Cigarette use?: No Frequency of Alcohol Use: None Hx Recreational Drug Use: No Hx Prescription Drug Abuse: No - Advance Directive Resuscitation Status: Full Code Family History Family History: Reviewed & Not Pertinent Parental Family History Reviewed: No Children Family History Reviewed: NA Sibling(s) Family History Reviewed.: NA Medication/Allergy Home Medications: Levetiracetam [Keppra 500 mg Tablet] 500 mg PO Q12 01/30/20 Allergies/Adverse Reactions: banana [Banana] Allergy (Intermediate, Verified 01/22/19 10:34) swelling morphine [Morphine] Allergy (Intermediate, Verified 01/22/19 10:34) Hives Review of Systems Constitutional: ABSENT: chills, fever(s), headache(s), weight gain, weight loss Gastrointestinal: PRESENT: abdominal pain. ABSENT: constipation, diarrhea, hematemesis, hematochezia, nausea, vomiting Genitourinary: ABSENT: dysuria, hematuria Neurological: ABSENT: abnormal gait, abnormal speech, confusion, dizziness, focal weakness, syncope Physical Exam - Physical Exam Vital Signs: Temp Pulse Resp BP Pulse Ox 98.4 F 75 18 111/65 100 01/30/20 21:47 01/30/20 18:59 01/30/20 21:47 01/30/20 21:47 01/30/20 21:47 Intake & Output 01/29/20 01/30/20 01/31/20 06:59 06:59 06:59 Weight 74.1 kg General appearance: PRESENT: no acute distress, well-developed, well-nourished Head exam: PRESENT: atraumatic, normocephalic Ear exam: PRESENT: normal external ear exam Neck exam: PRESENT: full ROM. ABSENT: carotid bruit, JVD, lymphadenopathy, thyromegaly Respiratory exam: PRESENT: clear to auscultation emil, symmetrical, unlabored Cardiovascular exam: PRESENT: RRR. ABSENT: diastolic murmur, rubs, systolic murmur Pulses: PRESENT: normal dorsalis pedis pul, +2 pedal pulses bilateral GI/Abdominal exam: PRESENT: guarding, normal bowel sounds, rebound, soft, tenderness. ABSENT: distended, mass, organolmegaly Rectal exam: PRESENT: deferred Extremities exam: PRESENT: full ROM. ABSENT: calf tenderness, clubbing, pedal edema Neurological exam: PRESENT: alert, awake, oriented to person, oriented to place, oriented to time, oriented to situation, CN II-XII grossly intact. ABSENT: motor sensory deficit Psychiatric exam: PRESENT: appropriate affect, normal mood. ABSENT: homicidal ideation, suicidal ideation Skin exam: PRESENT: dry, intact, warm. ABSENT: cyanosis, rash Result Laboratory Results: 01/30/20 19:10 01/30/20 19:10 01/30/20 01/30/20 19:10 19:10 WBC 8.1 RBC 4.31 Hgb 13.1 Hct 39.3 MCV 91 MCH 30.4 MCHC 33.3 RDW 14.5 H Plt Count 346 Seg Neutrophils % 62.4 Sodium 135.8 L Potassium 4.1 Chloride 101 Carbon Dioxide 28 Anion Gap 7 BUN 17 Creatinine 0.80 Est GFR ( Amer) > 60 Glucose 114 H Calcium 10.0 Total Bilirubin 0.3 AST 25 Alkaline Phosphatase 64 Total Protein 7.7 Albumin 4.5 Impressions: Transvaginal US 01/30/20 20:46 IMPRESSION: No IUP, with a complex mass in the right adnexa. Findings are suspicious for ectopic . copyright 2010 [employer]- All Rights Reserved Status: Imported from PACS Assessment & Plan - Diagnosis (1) Ectopic Qualifiers: Location of ectopic : ovarian Intrauterine status: without intrauterine Laterality: right Qualified Code(s): O00.201 - Right ovarian without intrauterine Is this a current diagnosis for this admission?: Yes Plan: BHCG and US findings significant for suspicious for Ectopic. Reviewed options with patient extensively. Reviewed MTX and pros/cons. Reviewed surgery and pros/cons. Now that patient is on the floor (arrived at approx 0030) patient has decided that she would like to have surgery. Apparently someone during her previous surgery told her the right tube is so small that it would not function. SHe states that she has been thinking about it and that she has decided that she would like to have surgery even though she may lose the tube/ovary on the affected side. She is tearful but appropriate. She is stable and pain is mild after dilaudid. + pain on right but Hb/Hct is stable. reviewed with patient as long as remains stable would recommend surgery in am. If VS or exam or pain decompensates then would move to emergent surgery. Labs in am. (2) Pelvic pain Is this a current diagnosis for this admission?: Yes Plan: see above. (3) Right sided abdominal pain Is this a current diagnosis for this admission?: Yes Plan: see above. - Time Time Spent: 30 to 50 Minutes Anticipated discharge: Home Within: within 24 hours - Inpatient Certification Based on my medical assessment, after consideration of the patient's comorbidities, presenting symptoms, or acuity I expect that the services needed warrant INPATIENT care.: Yes I certify that my determination is in accordance with my understanding of Medicare's requirements for reasonable and necessary INPATIENT services [42 CFR 412.3e].: Yes Medical Necessity: Need Close Monitoring Due to Risk of Patient Decompensation, Need for Pain Control, Need for Surgery
[2020-01-30] MEDS ORDERED: RINGERS SOLUTION,LACTATED 1,000 ML IV PRN (22:12)
[2020-01-30] MEDS ORDERED: HYDROMORPHONE HCL INJ/PF 2 MG/ML AMPULE IV PRN (22:13)
[2020-01-30] MEDS ORDERED: LEVETIRACETAM 500 MG TABLET PO ONE (23:00)
[2020-01-31] MEDS: ONDANSETRON HCL INJ/PF 4 MG/2 ML SDV IV SCH ×2 (02:30→06:30)
[2020-01-31 07:06] LABS: ABSOLUTE BASOPHILS # (AUTO) 0.1 10^3/uL (0.0-0.2); ABSOLUTE LYMPHOCYTES (AUTO) 1.6 10^3/uL (0.5-4.7); ABSOLUTE MONOCYTES (AUTO) 0.4 10^3/uL (0.1-1.4); ABSOLUTE NEUT (AUTO) 5.6 10^3/uL (1.7-8.2); BASOPHILS % (AUTO) 0.7 % (0-2); EOSINOPHILS % (AUTO) 0.3 % (0-6); HEMATOCRIT 36.4 % (36.0-47.0); HEMOGLOBIN 12.2 g/dL (12.0-15.5); LYMPHOCYTES % (AUTO) 20.7 % (13-45); MEAN CORPUSCULAR HEMOGLOBIN 30.6 pg (27.0-33.4); MEAN CORPUSCULAR HGB CONC 33.5 g/dL (32.0-36.0); MEAN CORPUSCULAR VOLUME 91 fl (80-97); MONOCYTES % (AUTO) 5.3 % (3-13); PLATELET COUNT 292 10^3/uL (150-450); RED BLOOD COUNT 3.98 10^6/uL (3.72-5.28); RED CELL DISTRIBUTION WIDTH 14.5 % (11.5-14.0); TOTAL CELLS COUNTED % (AUTO) 100 %; WHITE BLOOD COUNT 7.6 10^3/uL (4.0-10.5)
[2020-01-31] MEDS ORDERED: ONDANSETRON HCL INJ/PF 4 MG/2 ML SDV ONE (08:58)
[2020-01-31] MEDS ORDERED: FENTANYL CITRATE INJ/PF 100 MCG/2 ML AMPUL ONE (08:58)
[2020-01-31] MEDS ORDERED: KETOROLAC TROMETHAMINE 60 MG/2 ML SDV ONE (08:58)
[2020-01-31] MEDS ORDERED: DEXAMETHASONE SOD PHOSPHATE INJ 4 MG/1 ML VIAL ONE (08:58)
[2020-01-31] MEDS ORDERED: MIDAZOLAM 2 MG/2 ML INJ ONE (08:58)
[2020-01-31] MEDS ORDERED: PROPOFOL INJ 200 MG/20 ML VIAL IV ONE (08:59)
[2020-01-31] MEDS ORDERED: BUPIVACAINE HCL 0.25 % INJ/PF (2.5 MG/1 ML) 30 ML VIAL ONE (09:00)
[2020-01-31] MEDS ORDERED: PROMETHAZINE HCL INJ 25 MG/1 ML VIAL IV PRN ×2 (09:37)
[2020-01-31] MEDS ORDERED: ONDANSETRON HCL INJ/PF 4 MG/2 ML SDV IV PRN (09:37)
[2020-01-31] MEDS ORDERED: FENTANYL CITRATE INJ/PF 100 MCG/2 ML AMPUL IV PRN ×3 (09:37)
[2020-01-31] MEDS ORDERED: MEPERIDINE HCL/PF INJ 25 MG/1 ML DISP.SYRIN IV PRN (09:37)
[2020-01-31] MEDS ORDERED: DIPHENHYDRAMINE HCL 50 MG/ML VIAL IV PRN (09:37)
[2020-01-31] MEDS ORDERED: LEVETIRACETAM 500 MG TABLET PO SCH ×2 (10:00→13:00)
--- NOTE | 2020-01-31 10:17 | Operative Report ---
Operative Report DATE OF SURGERY: 01/31/20 PREOPERATIVE DIAGNOSIS: Ectopic POSTOPERATIVE DIAGNOSIS: Same plus hemoperitoneum OPERATION: Diagnostic laparoscopy partial right salpingectomy SURGEON: VIRI BUTLER ANESTHESIA: GA TISSUE REMOVED OR ALTERED: Partial right salpingectomy ESTIMATED BLOOD LOSS: Negligible PROCEDURE: Patient placed in a dorsolithotomy just prepped draped sterile fashion specks placed cervix visualized dressing to tenaculum Hulka neck was placed into the neck was removed speculum was removed. Bladder was drained with a straight cath. And turned to the abdomen where a small incision was made lateral to the midline on the left and a 5 trocar was introduced introduction of the laparoscope. The peritoneum was noted no obstructions were noted under the umbilicus. Incision was made entering umbilicus stimulator in fashion and a 1012 trocar was introduced. Third 5 was introduced below the previously will introduce 1 on the left and a 5 trocar was introduced. On the left there was evidence of a partial salpingectomy no ovary could identified. On the right there appeared to be a edematous tube with blood protruding from the fimbria. The harmonic scalpel tissue was divided along the mesosalpinx till approximately 4 cm distal to the uterus. Using a Pleatman sac the specimen was removed. There was irrigated with normal saline hemostasis was noted. Deflated and trocar sleeves removed. Bubblelike incision closed with 0 Vicryl for the fascia and 4 oh subcu and the 2 puncture wounds were closed with q. 4-0 Vicryl. Glue was placed over the wounds. A Hulka mask was removed and procedure terminated she was taken to recovery room in good condition.
[2020-01-31] MEDS ORDERED: DEXTROSE 5%-LACTATED RINGERS 1,000 ML IV PRN (11:55)
[2020-01-31] MEDS ORDERED: OXYCODONE-ACETAMINOPHEN 5-325 MG TABLET PO PRN (11:56)
--- NOTE | 2020-01-31 12:54 | PDOC DISCHARGE SUMMARY ---
Impression - Admit/DC Date/PCP Admission Date/Primary Care Provider: 01/30/20 22:15 Discharge Date: 01/31/20 - Discharge Diagnosis (1) Ectopic Is this a current diagnosis for this admission?: Yes (2) Pelvic pain Is this a current diagnosis for this admission?: Yes (3) Right sided abdominal pain Is this a current diagnosis for this admission?: Yes - Additional Information Resuscitation Status: Full Code Discharge Diet: As Tolerated Discharge Activity: Balance Activity w/Rest, No Lifting Over 10 Pounds, No Lifting/Push/Pulling, Pelvic Rest, Walk Frequently Home Medications: Levetiracetam [Keppra 500 mg Tablet] 500 mg PO Q12 01/30/20 History of Present Illiness History of Present Illness: TIFFANY ERICKSON is a 34 year old female Physical Exam - Physical Exam Vital Signs: Temp Pulse Resp BP Pulse Ox 97.6 F 68 18 115/69 97 01/31/20 12:30 01/31/20 12:30 01/31/20 12:30 01/31/20 12:30 01/31/20 12:30 Intake & Output 01/30/20 01/31/20 02/01/20 06:59 06:59 06:59 Intake Total 1000 850 Output Total 400 5 Balance 600 845 Weight 74.3 kg Results Laboratory Results: WBC 7.6 10^3/uL (4.0-10.5) 01/31/20 06:44 RBC 3.98 10^6/uL (3.72-5.28) 01/31/20 06:44 Hgb 12.2 g/dL (12.0-15.5) 01/31/20 06:44 Hct 36.4 % (36.0-47.0) 01/31/20 06:44 MCV 91 fl (80-97) 01/31/20 06:44 MCH 30.6 pg (27.0-33.4) 01/31/20 06:44 MCHC 33.5 g/dL (32.0-36.0) 01/31/20 06:44 RDW 14.5 % (11.5-14.0) H 01/31/20 06:44 Plt Count 292 10^3/uL (150-450) 01/31/20 06:44 Lymph % (Auto) 20.7 % (13-45) 01/31/20 06:44 Hodgeman % (Auto) 5.3 % (3-13) 01/31/20 06:44 Eos % (Auto) 0.3 % (0-6) 01/31/20 06:44 Baso % (Auto) 0.7 % (0-2) 01/31/20 06:44 Absolute Neuts (auto) 5.6 10^3/uL (1.7-8.2) 01/31/20 06:44 Absolute Lymphs (auto) 1.6 10^3/uL (0.5-4.7) 01/31/20 06:44 Absolute Monos (auto) 0.4 10^3/uL (0.1-1.4) 01/31/20 06:44 Absolute Eos (auto) 0.0 10^3/uL (0.0-0.6) 01/31/20 06:44 Absolute Basos (auto) 0.1 10^3/uL (0.0-0.2) 01/31/20 06:44 Seg Neutrophils % 73.0 % (42-78) 01/31/20 06:44 Sodium 135.8 mmol/L (137-145) L 01/30/20 19:10 Potassium 4.1 mmol/L (3.6-5.0) 01/30/20 19:10 Chloride 101 mmol/L (98-107) 01/30/20 19:10 Carbon Dioxide 28 mmol/L (22-30) 01/30/20 19:10 Anion Gap 7 (5-19) 01/30/20 19:10 BUN 17 mg/dL (7-20) 01/30/20 19:10 Creatinine 0.80 mg/dL (0.52-1.25) 01/30/20 19:10 Est GFR ( Amer) > 60 (>60) 01/30/20 19:10 Est GFR (MDRD) Non-Af > 60 (>60) 01/30/20 19:10 Glucose 114 mg/dL (75-110) H 01/30/20 19:10 Calcium 10.0 mg/dL (8.4-10.2) 01/30/20 19:10 Total Bilirubin 0.3 mg/dL (0.2-1.3) 01/30/20 19:10 Direct Bilirubin 0.0 mg/dL (0.0-0.4) 01/30/20 19:10 Neonat Total Bilirubin Not Reportable 01/30/20 19:10 Neonat Direct Bilirubin Not Reportable 01/30/20 19:10 Neonat Indirect Bili Not Reportable 01/30/20 19:10 AST 25 U/L (14-36) 01/30/20 19:10 ALT 20 U/L (<35) 01/30/20 19:10 Alkaline Phosphatase 64 U/L (38-126) 01/30/20 19:10 Total Protein 7.7 g/dL (6.3-8.2) 01/30/20 19:10 Albumin 4.5 g/dL (3.5-5.0) 01/30/20 19:10 Beta HCG, Quant 554.34 mIU/mL (0.0-6.15) H 01/31/20 06:44 Total Beta HCG POSITIVE (NEGATIVE) 01/31/20 06:44 SARS-CoV-2 (PCR) NEGATIVE (NEGATIVE) 01/31/20 04:45 Blood Type O POSITIVE 01/31/20 08:50 Antibody Screen NEGATIVE 01/31/20 08:50 Impressions: Transvaginal US 01/30/20 20:46 IMPRESSION: No IUP, with a complex mass in the right adnexa. Findings are suspicious for ectopic . copyright 2010 [employer]- All Rights Reserved Stroke Is this a Stroke Patient?: No Acute Heart Failure - Is this a Heart Failure Patient?: No
[2020-01-31] MEDS ORDERED: IBUPROFEN 800 MG TABLET PO SCH (14:00)
[2020-01-31] MEDS ORDERED: VECURONIUM BROMIDE INJ 10 MG VIAL IV ONE (14:15)
[2020-01-31] MEDS ORDERED: SUCCINYLCHOLINE CHLORIDE INJ 200 MG/10 ML VIAL ONE (14:15)
[2020-01-31] MEDS ORDERED: NEOSTIGMINE METHYLSULFATE 10 MG/10 ML VIAL ONE (14:15)
[2020-01-31] MEDS ORDERED: GLYCOPYRROLATE 1 MG/5 ML VIAL ONE (14:15)
[2020-01-31 14:48] VITALS: BP 96/59
== END 2020-01-31 15:23 | disposition home or self-care (01) ==
LOC: ER 18:45 → EH 22:15 → 2N 23:51
PROVIDERS: ADMIT Student in an Organized Health Care Education/Training Program; ATTEND Student in an Organized Health Care Education/Training Program
DX: O00.101 Right tubal pregnancy without intrauterine pregnancy (principal); K66.1 Hemoperitoneum; O99.350 Diseases of the nervous system complicating pregnancy, unspecified trimester; G40.909 Epilepsy, unspecified, not intractable, without status epilepticus; Z90.79 Acquired absence of other genital organ(s); Z90.721 Acquired absence of ovaries, unilateral; Z87.59 Personal history of other complications of pregnancy, childbirth and the puerperium; Z03.818 Encounter for observation for suspected exposure to other biological agents ruled out
CPT/HCPCS: 99285; 96361; 96374; 96375; 86900; 86901; 36415 ×2; 86850; 84702 ×2; 85025; 87635; 80053; 88305 ×2; 76817; 93976; 59151; J2250; J1100; J1885; J3010; J3490 ×2; J2710; J1170; J0330; J2405 ×2; J7121; J7030; J7120; J2704; C9803; 840

== ENCOUNTER 2020-07-30 18:08 | Emergency (ER) | payer SELFPAY ==
[2020-07-30] MEDS ORDERED: METHYLPREDNISOLONE INJ 125 MG/2 ML SDV IV ONE (18:14)
[2020-07-30] MEDS ORDERED: EPINEPHRINE INJ/PF 1 MG/1 ML AMPULE IM ONE (18:14)
[2020-07-30] MEDS ORDERED: DIPHENHYDRAMINE HCL 50 MG/ML VIAL IV ONE (18:14)
--- NOTE | 2020-07-30 18:16 | ER Document Report ---
ED Medical Screen (RME) - General Chief Complaint: Allergic Reaction Stated Complaint: POSSIBLE ALLERGIC REACTION Time Seen by Provider: 07/30/20 18:13 Mode of Arrival: Ambulatory Information source: Patient Notes: HPI; 35-year-old female presents to the emergency room with sudden onset of itching, tongue swelling, and feeling like her throat is closing up. States happened 20 minutes prior to arrival after eating sushi and red wine which she states she had multiple times in the past. Only other food allergy is bananas. States she went to the store to get Benadryl when her symptoms quickly worsened. Is able to talk in full sentences but continues to complain of lip swelling and feeling like her throat is closing. PE: She is alert and oriented x3. Right-sided facial swelling noted, upper lip swelling. No obvious rash noted. Mild pharyngeal erythema. lungs: Clear to auscultation without rales, rhonchi, wheezes. Heart tachycardic without murmurs, rubs, gallops. Charge nurse notified patient be taken directly to a room in the main ER. I have greeted and performed a rapid initial assessment of this patient. A comprehensive ED assessment and evaluation of the patient, analysis of test results and completion of the medical decision making process will be conducted by additional ED providers. I have specifically instructed the patient or family members with the patient to immediately return to any nursing staff should anything change in the patient's condition or with their chief complaint. TRAVEL OUTSIDE OF THE [place] IN LAST 30 DAYS: No - Related Data Allergies/Adverse Reactions: banana [Banana] Allergy (Intermediate, Verified 01/22/19 10:34) swelling morphine [Morphine] Allergy (Intermediate, Verified 01/22/19 10:34) Hives Past Medical History - Past Medical History Cardiac Medical History: Denies: Hx Congestive Heart Failure, Hx Heart Attack, Hx Hypertension Pulmonary Medical History: Reports: Hx Asthma Denies: Hx Bronchitis, Hx COPD, Hx Pneumonia, Hx Tuberculosis Neurological Medical History: Reports: Hx Seizures - NEVER EVALUATED BY NEUROLOGY, no medication. Denies: Hx Parkinson's Disease Endocrine Medical History: Denies: Hx Diabetes Mellitus Type 1, Hx Diabetes Mellitus Type 2 Renal/ Medical History: Reports: Hx Ectopic . Denies: Hx End Stage Renal Disease, Hx Kidney Stones, Hx Ovarian Cysts, Hx Peritoneal Dialysis, Hx Pelvic Inflammatory Disease, Hx Renal Insufficiency GI Medical History: Denies: Hx Cirrhosis, Hx Gastritis, Hx Gastroesophageal Reflux Disease, Hx Ulcer Musculoskeltal Medical History: Denies Hx Arthritis, Denies Hx Multiple Sclerosis, Denies Hx Musculoskeletal Trauma Skin Medical History: Denies Hx Cellulitis, Denies Hx Eczema, Denies Hx MRSA, Denies Hx Psoriasis Psychiatric Medical History: Denies: Hx Bipolar Disorder, Hx Depression, Hx Schizophrenia Past Surgical History: Reports: Hx Section, Hx Gynecologic Surgery - left fallopion, etopic, Other - removal of left tube ?ovary due to ectopic, 2nd ectopic treated by MTX - Immunizations Hx Diphtheria, Pertussis, Tetanus Vaccination: Yes - 2010 Physical Exam - Vital signs Vitals: Temp Pulse Resp BP Pulse Ox 98.2 F 100 20 112/65 99 07/30/20 18:14 07/30/20 18:14 07/30/20 18:14 07/30/20 18:14 07/30/20 18:14 Course - Vital Signs Vital signs: Temp Pulse Resp BP Pulse Ox 98.2 F 100 20 112/65 99 07/30/20 18:14 07/30/20 18:14 07/30/20 18:14 07/30/20 18:14 07/30/20 18:14
[2020-07-30] MEDS ORDERED: FAMOTIDINE INJ/PF 20 MG/2 ML SDV IV ONE (18:26)
--- NOTE | 2020-07-30 18:42 | ER Document Report ---
ED General - General Chief Complaint: Allergic Reaction Stated Complaint: POSSIBLE ALLERGIC REACTION Time Seen by Provider: 07/30/20 18:13 Mode of Arrival: Ambulatory TRAVEL OUTSIDE OF THE [place] IN LAST 30 DAYS: No - HPI Notes: Chief complaint: Allergic reaction to food History of present illness: 35-year-old female was in a restaurant drinking wine and eating sushi about 30 minutes ago when she started to have itching and tingling of both hands associated with some mild swelling of the hands. Shortly thereafter she started to notice some swelling of her lips and tightness in her throat with some difficulty swallowing. 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 She used to carry an EpiPen but did not have one with her this evening. Her friends brought her directly to the hospital. She feels her symptoms are getting slightly worse at this time. - Related Data Allergies/Adverse Reactions: banana [Banana] Allergy (Intermediate, Verified 01/22/19 10:34) swelling morphine [Morphine] Allergy (Intermediate, Verified 01/22/19 10:34) Hives Past Medical History - General Information source: Patient, [facility] Records - Social History Smoking Status: Never Smoker Frequency of alcohol use: Social Drug Abuse: None Family History: Reviewed & Not Pertinent - Past Medical History Cardiac Medical History: Denies: Hx Congestive Heart Failure, Hx Heart Attack, Hx Hypertension Pulmonary Medical History: Reports: Hx Asthma Denies: Hx Bronchitis, Hx COPD, Hx Pneumonia, Hx Tuberculosis Neurological Medical History: Reports: Hx Seizures - NEVER EVALUATED BY NEUROLOGY, no medication. Denies: Hx Parkinson's Disease Endocrine Medical History: Denies: Hx Diabetes Mellitus Type 1, Hx Diabetes Mellitus Type 2 Renal/ Medical History: Reports: Hx Ectopic . Denies: Hx End Stage Renal Disease, Hx Kidney Stones, Hx Ovarian Cysts, Hx Peritoneal Dialysis, Hx Pelvic Inflammatory Disease, Hx Renal Insufficiency GI Medical History: Denies: Hx Cirrhosis, Hx Gastritis, Hx Gastroesophageal Reflux Disease, Hx Ulcer Musculoskeletal Medical History: Denies Hx Arthritis, Denies Hx Multiple Sclerosis, Denies Hx Musculoskeletal Trauma Skin Medical History: Denies Hx Cellulitis, Denies Hx Eczema, Denies Hx MRSA, Denies Hx Psoriasis Psychiatric Medical History: Denies: Hx Bipolar Disorder, Hx Depression, Hx Schizophrenia Past Surgical History: Reports: Hx Section, Hx Gynecologic Surgery - left fallopion, etopic, Other - removal of left tube ?ovary due to ectopic, 2nd ectopic treated by MTX - Immunizations Hx Diphtheria, Pertussis, Tetanus Vaccination: Yes - 2010 Review of Systems - Review of Systems Notes: Constitutional: Negative for fever. HENT: As per HPI. Eyes: Negative for visual changes. Cardiovascular: Negative for chest pain. Respiratory: As per HPI. Gastrointestinal: Negative for abdominal pain, vomiting or diarrhea. Genitourinary: Negative for dysuria. Musculoskeletal: Negative for back pain. Skin: As per HPI. Neurological: Negative for headaches, weakness or numbness. 10 point ROS negative except as marked above and in HPI. Physical Exam - Vital signs Vitals: Temp Pulse Resp BP Pulse Ox 98.2 F 100 20 112/65 99 07/30/20 18:14 07/30/20 18:14 07/30/20 18:14 07/30/20 18:14 07/30/20 18:14 - Notes Notes: GENERAL: Well-developed well-nourished appearing in no acute distress. SKIN: Good turgor. Mild urticarial rash of both hands. HEAD: Normocephalic atraumatic. EYES: PERRLA. EOMI. Conjunctivae and sclerae clear. EARS: CANALS AND TMS CLEAR. NOSE: CLEAR. MOUTH: Mild swelling of lips. No visible swelling of tongue or uvula. Patient complains of tightness in her throat but there is no stridor or drooling. NECK: Supple. No masses or thyromegaly. No adenopathy. Carotids 2+ without bruits. No JVD. BACK: Symmetrical without tenderness. CHEST: Respirations unlabored. Breath sounds clear and symmetrical. HEART: Regular rhythm. No murmur gallop or rub. ABDOMEN: Soft nontender without masses, organomegaly or rebound. Bowel sounds normally active. No bruits. GENITALIA: Deferred. EXTREMITIES: No edema. No calf tenderness. Cap refill less than 1.5 seconds. Dorsalis pedis and posterior tibial pulses 3+ and symmetrical. NEUROLOGICAL: GCS 15. Alert and oriented x3. Normal gait. Fluent speech. Cranial nerves II through XII intact. Sensorimotor and cerebellar normal. Normal tone. PSYCHIATRIC: Mildly anxious affect. Course - Vital Signs Vital signs: Temp Pulse Resp BP Pulse Ox 98.2 F 100 17 105/61 97 07/30/20 18:14 07/30/20 18:14 07/30/20 19:31 07/30/20 19:31 07/30/20 19:31 Critical Care Note - Critical Care Note Total time excluding time spent on procedures (mins): 35 - O2, IV, it administrative assistant, IV normal saline, IM epinephrine, IV Benadryl and famotidine. Discharge - Discharge Clinical Impression: Angioedema Anaphylaxis Qualifiers: Encounter type: initial encounter Qualified Code(s): T78.2XXA - Anaphylactic shock, unspecified, initial encounter Condition: Stable Disposition: HOME, SELF-CARE Prescriptions: Diphenhydramine HCl [Benadryl] 25 mg PO TID 7 Days #21 capsule Epinephrine [Epipen] 0.3 mg IJ ASDIR PRN 1 Days #1 auto.injct PRN Reason: Famotidine [Pepcid 20 mg Tablet] 20 mg PO DAILY #12 tablet
[2020-07-30 20:17] VITALS: BP 106/60
== END 2020-07-30 20:17 | disposition home or self-care (01) ==
LOC: ER 18:08
DX: T78.3XXA Angioneurotic edema, initial encounter (principal); T78.2XXA Anaphylactic shock, unspecified, initial encounter
CPT/HCPCS: 99284; 96374; 96375; J1200; J0171; J2930; S0028

== ENCOUNTER 2020-08-25 08:20 | Emergency (ER) | payer SELFPAY ==
--- NOTE | 2020-08-25 09:02 | RADIOLOGY REPORT (SQ) ---
EXAM DESCRIPTION: SHOULDER RIGHT 2 OR MORE VIEWS IMAGES COMPLETED DATE/TIME: 08/25/2020 8:54 am REASON FOR STUDY: pain, decreased movement COMPARISON: 08/05/2011. NUMBER OF VIEWS: Three views. TECHNIQUE: Internal rotation, external rotation, and Y view images acquired of the right shoulder. LIMITATIONS: None. FINDINGS: MINERALIZATION: Normal. BONES: No acute fracture. No worrisome bone lesions. No significant osteophytes. GLENOHUMERAL JOINT: No significant findings. ACROMIOCLAVICULAR JOINT: No large osteophytes. SOFT TISSUES: No calcifications. VISUALIZED RIBS, SPINE, AND LUNG: No other significant finding. OTHER: No other significant finding. IMPRESSION: NEGATIVE STUDY OF THE RIGHT SHOULDER. NO EXPLANATION FOR PAIN. TECHNICAL DOCUMENTATION: JOB ID: [id number] 2010 [employer]- All Rights Reserved Reading location - IP/workstation name: [email or web address]
--- NOTE | 2020-08-25 10:15 | ER Document Report ---
ED General - General Chief Complaint: Shoulder Pain Stated Complaint: SHOULDER PAIN TRAVEL OUTSIDE OF THE [place] IN LAST 30 DAYS: No - HPI Notes: Chief Complaint: Right shoulder pain Historian: History obtained from patient HPI: This is a 35-year-old female complaining of right shoulder pain For the past couple days. Denies any known injury or trauma. Increased pain when raising shoulder but most severe pain when lowering arm. no hx of shoulder surgeries or neck injuries. denies numbness or weakness to LUE. denies neck pain, back pain, fevers, cp, sob, or falls. ROS: Constitutional: no fevers. HEENT: no ALEXANDER, sore throat, or vision changes. CV: no chest pain or palpitations. Resp: no cough or SOB GI: no abdominal pain, or n/v/d. : no dysuria, hematuria, or incont. MSK: right shoulder pain Skin: no rashes or itching. Neuro: no seizures, weakness, numbness, or confusion. Hematological: no ecchymosis or easy bleeding. Endocrine: no polyuria/polydipsia, no heat/cold intolerance. Psych: no SI/HI, AH/VH or memory loss. PMHx: Reviewed and agree as charted by RN. PSHx: Reviewed and agree as charted by RN. SOCHx: Reviewed and agree as charted by RN. FHX: No significant familial comorbid conditions directly related to patient complaint Current Medications: Reviewed and agree with the patient medications as charted by the RN. Allergies: Reviewed and agree with the listed allergies as charted by the RN Physical Exam: Vitals: Reviewed in chart as documented by RN. General: Alert and in NAD. Head: Normocephalic; atraumatic Eyes: PERRLA, Conjunctivae clear sclerae non-icteric bilat ENT: no soft palate swelling or uvular deviation Neck: trachea midline, no unilateral swelling/tenderness/lymphadenopathy CV: RRR, no M/R/G; symmetric distal pulses Resp: respirations even and unlabored, CTA bilat. GI: abd soft and nondistended. NTTP. normal BS. no masses/HSM. no CVAT bilat MSK: right shoulder- tender to anterior SITS muscles. diffuse tenderness to trapezius area. no deformity or swelling to AC, clavicle, or shoulder joint. rom limited due to pain. painless abduction to about 20-30 degrees. pain w/ abduction up to 90 degrees. pos drop arm test. from of elbow, wrist, digits sensatoin intact distally cap refill < 3 sec radial pulse 2+ cap refill <3 sec Skin: warm, moist, good turgor. no rash/lesions Neuro: Alert and oriented X 4. following CN 2-12 intact. no unilateral weakness/numbness Psych: No SI/HI or AH/VH. Medical Decision-making/Differential Diagnosis: Consider various etiologies including but not limited to skin/soft tissue structure injury, MSK injury, strain/sprain, fracture, dislocation, bursitis, tendonitis, contusion, ect Plan- XR shoulder obtained- no acute findings. Suspect pt has a rotator cuff injury based on pos drop arm test and pain w/ abduction between 30-90 degrees. Pt is very uncomfortable so I will give her a sling to wear temporarily but she agrees to regular shoulder ROM out of the sling to prevent frozen shoulder. ortho referral for f/u given. will give education for home care/exercises. return factors discussed. Pt has motrin at home- she declines prescriptions for pain control or anti inflamm's. This course of action was discussed with the patient and/or family. They were amenable to this, verbalized understanding, and were without further questions. - Related Data Allergies/Adverse Reactions: banana [Banana] Allergy (Intermediate, Verified 01/22/19 10:34) swelling morphine [Morphine] Allergy (Intermediate, Verified 01/22/19 10:34) Hives Past Medical History - Social History Smoking Status: Never Smoker Frequency of alcohol use: Occasional Family History: Reviewed & Not Pertinent - Past Medical History Cardiac Medical History: Denies: Hx Congestive Heart Failure, Hx Heart Attack, Hx Hypertension Pulmonary Medical History: Reports: Hx Asthma Denies: Hx Bronchitis, Hx COPD, Hx Pneumonia, Hx Tuberculosis Neurological Medical History: Reports: Hx Seizures - NEVER EVALUATED BY NEUROLOGY, no medication. Denies: Hx Parkinson's Disease Endocrine Medical History: Denies: Hx Diabetes Mellitus Type 1, Hx Diabetes M ellitus Type 2 Renal/ Medical History: Reports: Hx Ectopic . Denies: Hx End Stage Renal Disease, Hx Kidney Stones, Hx Ovarian Cysts, Hx Peritoneal Dialysis, Hx Pelvic Inflammatory Disease, Hx Renal Insufficiency GI Medical History: Denies: Hx Cirrhosis, Hx Gastritis, Hx Gastroesophageal Reflux Disease, Hx Ulcer Musculoskeletal Medical History: Denies Hx Arthritis, Denies Hx Multiple Sclerosis, Denies Hx Musculoskeletal Trauma Skin Medical History: Denies Hx Cellulitis, Denies Hx Eczema, Denies Hx MRSA, Denies Hx Psoriasis Psychiatric Medical History: Denies: Hx Bipolar Disorder, Hx Depression, Hx Schizophrenia Past Surgical History: Reports: Hx Section, Hx Gynecologic Surgery - left fallopion, etopic, Other - removal of left tube ?ovary due to ectopic, 2nd ectopic treated by MTX - Immunizations Hx Diphtheria, Pertussis, Tetanus Vaccination: Yes - 2010 Physical Exam - Vital signs Vitals: Temp Pulse Resp BP Pulse Ox 98.2 F 83 20 99/58 L 100 08/25/20 08:24 08/25/20 08:24 08/25/20 08:24 08/25/20 08:24 08/25/20 08:24 Course - Vital Signs Vital signs: Temp Pulse Resp BP Pulse Ox 98.2 F 83 20 99/58 L 100 08/25/20 08:24 08/25/20 08:24 08/25/20 08:24 08/25/20 08:24 08/25/20 08:24 - Laboratory Results Critical Laboratory Results Reviewed: No Critical Results - Radiology Results Critical Radiology Results Reviewed: No Critical Results Discharge - Discharge Clinical Impression: Right shoulder pain Qualifiers: Chronicity: acute Qualified Code(s): M25.511 - Pain in right shoulder Condition: Stable Disposition: HOME, SELF-CARE Instructions: Rotator Cuff Injury ([facility]) Additional Instructions: call orthopedics and schedule an appointment natali. follow printed instructions for home care of shoulder pain. take of sling and do range of motion of shoulder multiple times a day to prevent frozen shoulder. rest and ice shoulder. may take tylenol and motrin for pain. return to the ER if your condition worsens. Referrals: PATY LIMA JR, [ACTIVE PROVISIONAL STAFF] - Follow up as needed
[2020-08-25 10:51] VITALS: BP 92/63
== END 2020-08-25 11:10 | disposition home or self-care (01) ==
LOC: ER 08:20
DX: M25.511 Pain in right shoulder (principal); Z88.6 Allergy status to analgesic agent
CPT/HCPCS: 99283